=== PATIENT | female | born 1960 | race Caucasian/White ===

== ENCOUNTER 2018-05-25 11:36 | Emergency (ER) | payer OTHER ==
[2018-05-25 12:06] LABS: Absolute Lymphocytes (CBC) 5.3 K/uL (0.7-4.9); Absolute Monocytes 2.1 K/uL (0.1-1.3); Absolute Neutrophil 15.7 K/uL (1.8-8.0); Basophils % 0.8 % (0-1.3); Eosinophils % 1.1 % (0-4.4); Hematocrit 42.3 % (36.0-45.0); Lymphocytes % 22.5 % (15.3-44.8); MCH 29.2 pg (27.0-35.0); MCV 86.8 fL (80-100); MPV 8.1 fL (7.6-11.3); Monocytes % 9.1 % (3.3-12.3); RBC Red Blood Cell Count 4.88 M/uL (3.86-4.86)
[2018-05-25 12:08] LABS: Protime INR 0.89
[2018-05-25] MEDS ORDERED: NA CHLORIDE 0.9% 500 ML ONE (12:14)
[2018-05-25] MEDS ORDERED: METOPROLOL TARTRATE 5 MG/5 ML INJ IV ONE (12:14)
[2018-05-25 12:19] LABS: ALT/SGPT 22 U/L (12-78); AST/SGOT 18 U/L (15-37); Albumin 3.4 g/dL (3.4-5.0); Alkaline Phosphatase 72 U/L (45-117); BUN Blood Urea Nitrogen 31 mg/dL (7-18); Bicarbonate 32 mmol/L (21-32); Bilirubin Direct < 0.1 mg/dL (0-0.2); Bilirubin Total 0.3 mg/dL (0.2-1.0); Glucose Level 117 mg/dL (74-106); Magnesium 2.2 mg/dL (1.8-2.4); Protein, Total 8.2 g/dL (6.4-8.2); Sodium Level 137 mmol/L (136-145)
--- NOTE | 2018-05-25 12:24 | RAD REPORT ---
EXAM DESCRIPTION: RAD - Chest Single View - 05/25/2018 12:19 pm CLINICAL HISTORY: left facial numbness Chest pain. COMPARISON: No comparisons FINDINGS: Portable technique limits examination quality. The lungs are grossly clear. The heart is normal in size. No displaced fractures. IMPRESSION: No acute intrathoracic process suspected.
[2018-05-25] MEDS ORDERED: ALTEPLASE 0 ML IV ONE (12:29)
--- NOTE | 2018-05-25 12:49 | RAD REPORT ---
EXAM DESCRIPTION: CT - Ct Stroke Brain Wo Cont - 05/25/2018 12:40 pm CLINICAL HISTORY: DIZZINESS CVA COMPARISON: <Comparisons> TECHNIQUE: All CT scans are performed using dose optimization technique as appropriate and may inclu de automated exposure control or mA/KV adjustment according to patient size. FINDINGS: No intracranial hemorrhage, hydrocephalus or extra-axial fluid collection.Mild generalized brain atrophy is present with mild periventricular and deep white matter chronic microvascular ische charis changes.No areas of brain edema or evidence of midline shift. Mild fluid is seen in both maxillary antra posteriorly. Paranasal sinuses mastoids otherwise clear. T he calvarium is intact. IMPRESSION: No acute intracranial abnormality. If there is continued clinical concern for CVA, MR i maging of the brain would be recommended. Mild bilateral sinus fluid. The findings were discussed with Angela Hirsch in the ER on 05/25/2018 at 11:58 a.m. by telephone.
[2018-05-25 13:39] LABS: Blood Morphology Comment NOT SEEN (NOT SEEN); Platelet Estimate ADEQ
--- NOTE | 2018-05-25 14:00 | ER ---
Nurse's Notes [facility] Name: Georgiana Howard Age: 57 yrs Sex: Female : 1960 Arrival Date: 05/25/2018 Time: 11:37 Bed 4 Private MD: Hermes Kirk Diagnosis: left face paresthesia, Dysarthria, dysmetria of left arm - improved. 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 Transition of care: patient was not received from another setting of care. An acute neurological deficit is present. Pre-hospital glucose is not applicable to this patient. Onset of symptoms was May 25, 2018. Risk Assessment: Do you want to hurt yourself or someone else? Patient reports no desire to harm self or others. Initial Sepsis Screen: Does the patient meet any 2 criteria? HR > 90 bpm. Does the patient have a suspected source of infection? No. Patient's initial sepsis screen is negative. Care prior to arrival: None. 11:40 Method Of Arrival: Ambulatory ss 11:40 Acuity: KLAUS 2 ss Stroke Activation: Symptom onset < 3 hours Physician: Stroke Attending; Name: ; Notified At: ; Arrived At: Physician: Chief Stroke Resident; Name: ; Notified At: ; Arrived At: Physician: Stroke Resident; Name: ; Notified At: ; Arrived At: Physician: ED Attending; Name: ; Notified At: ; Arrived At: Physician: ED Resident; Name: ; Notified At: ; Arrived At: Historical: - Allergies: 11:57 Codeine; ss - Home Meds: 11:57 aspirin 325 mg Oral tab 1 tab once daily [Active]; ss - PMHx: 11:57 High Cholesterol; ss - PSHx: 11:57 Hysterectomy; Appendectomy; ss - Immunization history:: Adult Immunizations up to date. - Social history:: Smoking status: Patient/guardian denies using tobacco. - Ebola Screening: : Patient denies exposure to infectious person Patient denies travel to an Ebola-affected area in the 21 days before illness onset. Screenin:02 Abuse screen: Denies threats or abuse. Denies injuries from another. Nutritional ss screening: No deficits noted. Tuberculosis screening: No symptoms or risk factors identified. Never had TB. Fall Risk None identified. Assessment: 11:44 Reassessment: back from CT, Dr. Sanz at bedside to assess patient. ss 11:58 Reassessment: Dr. Skaggs on phone giving CT results to Angela Hernandez NP and relayed to ss Dr. Sanz. 12:00 The patient has not been NPO before screening. The patient is currently on the jl7 following diet: regular The patient is alert, and able to follow commands. The patient does not exhibit slurred or garbled speech. The patient is not exhibiting difficulty speaking. The patient does not exhibit difficulty understanding words. The patient is able to swallow own secretions with no drooling or need for suction. Patient tolerated one teaspoon of water. No drooling, immediate coughing, gurgling, or clearing of the throat was noted. The patient tolerated 90mL of water. No drooling, immediate coughing, gurgling, or clearing of the throat was noted. The patient passed the bedside swallow screening. Oral medications may be given as ordered. Contact Physician for further diet orders. Provider notified of bedside swallow screening results: Chapito Sanz MD. 12:00 General: Appears uncomfortable, Behavior is calm, cooperative, appropriate for age. jl7 Pain: Denies pain. 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 Gait is steady, Speech is normal, Facial symmetry appears normal, Pupils are PERRLA, Numbness in left arm and left leg. Cardiovascular: Heart tones S1 S2 present Patient's skin is warm and dry. Respiratory: Airway is patent Respiratory effort is even, unlabored, Respiratory pattern is regular, symmetrical, Breath sounds are clear bilaterally. GI: No signs and/or symptoms were reported involving the gastrointestinal system. : No signs and/or symptoms were reported regarding the genitourinary system. EENT: No signs and/or symptoms were reported regarding the EENT system. Derm: Skin is pink, warm \T\ dry. Musculoskeletal: No signs and/or symptoms reported regarding the musculoskeletal system. 12:10 Reassessment: Pt's speech is slurred, face appears to be drooping on left side. jl7 Provider notified and at bedside. 12:21 Reassessment: Called [facility] who reports at 1220 that they have no ICU beds. [facility] called and reports they will call back with further information. 12:23 Reassessment: Updated on Plan of care. ss 12:23 Reassessment: Decision now to go ahead and administer TPA after blood pressure is down ss within parameters. 12:23 Reassessment: Pt reports that her symptoms have improved greatly, but not 100%. ss 13:05 Reassessment: Report given to ALIZE Croft at [facility] in [place]. [facility] 13:10 Reassessment: [facility] at bedside to transport pt. jl7 Vital Signs: 11:50 BP 199 / 93; Pulse 127; Resp 19; Temp 98.5; Pulse Ox 98% on R/A; Weight 77.11 kg; ss Height 5 ft. 5 in. (165.10 cm); Pain 0/10; 12:07 BP 190 / 92; Pulse 109; Resp 16 S; Pulse Ox 98% on R/A; jl7 12:18 BP 172 / 98; Pulse 95; Resp 16; Pulse Ox 98% ; jl7 12:28 BP 190 / 102; Pulse 94; Resp 16; Pulse Ox 99% ; jl7 12:35 BP 185 / 92; Pulse 92; Resp 15; Pulse Ox 97% ; jl7 12:50 BP 175 / 88; Pulse 85; Resp 17; Pulse Ox 95% ; jl7 12:52 BP 175 / 88; Pulse 84; Resp 20 S; Pulse Ox 95% on R/A; Pain 0/10; jl7 13:15 BP 178 / 102; Pulse 91; Resp 14; Pulse Ox 98% ; Pain 0/10; jl7 11:50 Body Mass Index 28.29 (77.11 kg, 165.10 cm) ss NIH Stroke Scale Scores: 11:45 NIHSS Score: 3 jl7 12:00 NIHSS Score: 2 kdr ED Course: 11:37 Patient arrived in ED. as 11:37 Hermes Kirk MD is Private Physician. as 11:42 Chapito Sanz MD is Attending Physician. kdr 11:50 Arm band placed on right wrist. ss 11:53 CT Stroke Brain w/o Contrast In Process Unspecified. EDMS 11:56 Triage completed. ss 11:59 Inserted saline lock: 20 gauge in right antecubital area, using aseptic technique. ss ,using aseptic technique. insertion by ALIZE Trammell Blood collected. Patient maintains SpO2 saturation greater than 95% on room air. 12:02 Patient has correct armband on for positive identification. Bed in low position. Call ss light in reach. Side rails up X 1. traffic monitor specialist on. Pulse ox on. NIBP on. 12:07 Jp Alonso RN is Primary Nurse. jl7 12:13 X-ray completed. Portable x-ray completed in exam room. Patient tolerated procedure kw well. 12:19 Stroke CXR 1 View In Process Unspecified. EDMS Administered Medications: 12:10 Drug: Lopressor 5 mg Route: IVP; Site: right antecubital; jl7 12:15 Drug: NS 0.9% 500 ml Route: IV; Rate: bolus; Site: right antecubital; jl7 12:42 Not Given (Pt took 325 mg Aspirin today): Aspirin 325 mg PO once jl7 Point of Care Testing: Blood Glucose: 11:50 Blood Glucose: 108 mg/dL; Ranges: Outcome: 13:05 Transferred by ground EMS to [facility], Transfer form completed. jl7 X-rays sent w/ patient. 13:05 Condition: stable 13:05 Discharge instructions given to patient, family, Instructed on the need for transfer, Demonstrated understanding of instructions. 13:59 ER care complete, transfer ordered by . kdr 14:01 Patient left the ED. NIH Stroke Scale - NIH Stroke Score Date: 05/25/2018 Time: 11:45 Total Score = 3 1a. Level of Consciousness (LOC) - 0(Alert) 1b. Level of Consciousness (LOC) (Year \T\ Age) - 0(Both) 1c. LOC Commands (Open \T\ Closes Eyes/Shaper Hand) - 0(Both) 2. Best Gaze (Lateral Gaze Paresis) - 0(Normal) 3. Visual Field Loss - 0(No visual loss) 4. Facial Palsy - 0(Normal) 5a. Left Arm: Motor (10-second hold) - 1(Drift) 5b. Right Arm: Motor (10-second hold) - 0(No drift) 6a. Left Leg: Motor (5-second hold - always test supine) - 0(No drift) 6b. Right Leg: Motor (5-second hold - always test supine) - 0(No drift) 7. Limb Ataxia (finger/nose \T\ heel/phillip - test with eyes open) - 1(Present in one limb) 8. Sensory Loss (pinprick arms/legs/face) - 1(Mild to moderate loss) 9. Best Language: Aphasia (description/naming/reading) - 0(No aphasia) 10. Dysarthria (speech clarity - read or repeat words) - 0(Normal) 11. Extinction and Inattention (visual/tactile/auditory/spatial/personal) - 0(No abnormality) Initials: jl7 NIH Stroke Scale - NIH Stroke Score Date: 05/25/2018 Time: 12:00 Total Score = 2 1a. Level of Consciousness (LOC) - 0(Alert) 1b. Level of Consciousness (LOC) (Year \T\ Age) - 0(Both) 1c. LOC Commands (Open \T\ Closes Eyes/Shaper Hand) - 0(Both) 2. Best Gaze (Lateral Gaze Paresis) - 0(Normal) 3. Visual Field Loss - 0(No visual loss) 4. Facial Palsy - 0(Normal) 5a. Left Arm: Motor (10-second hold) - 1(Drift) 5b. Right Arm: Motor (10-second hold) - 0(No drift) 6a. Left Leg: Motor (5-second hold - always test supine) - 0(No drift) 6b. Right Leg: Motor (5-second hold - always test supine) - 0(No drift) 7. Limb Ataxia (finger/nose \T\ heel/phillip - test with eyes open) - 1(Present in one limb) 8. Sensory Loss (pinprick arms/legs/face) - 0(Normal) 9. Best Language: Aphasia (description/naming/reading) - 0(No aphasia) 10. Dysarthria (speech clarity - read or repeat words) - 0(Normal) 11. Extinction and Inattention (visual/tactile/auditory/spatial/personal) - 0(No abnormality) Initials: kdr Signatures: Dispatcher [employer] Chapito Kumari MD MD kdr Martinez, Amelia as Smirch, Shelby, RN RN Connie Russ Jahala RN RN jl7 Corrections: (The following items were deleted from the chart) 12:51 12:20 Reassessment: Pt's speech is slurred, face appears to be drooping on left jl7 side. Provider notified and at bedside. jl7
--- NOTE | 2018-05-25 14:00 | EDPHYS ---
Physician Documentation [facility] Name: Georgiana Howard Age: 57 yrs Sex: Female : 1960 Arrival Date: 05/25/2018 Time: 11:37 Bed 4 Private MD: Hermes Kirk ED Physician Chapito Sanz HPI: 05/25 12:05 This 57 yrs old Female presents to ER via Ambulatory with complaints of kdr Dizziness, Weakness - L Side. Historical: - Allergies: 11:57 Codeine; ss - Home Meds: 11:57 aspirin 325 mg Oral tab 1 tab once daily [Active]; ss - PMHx: 11:57 High Cholesterol; ss - PSHx: 11:57 Hysterectomy; Appendectomy; ss - Immunization history:: Adult Immunizations up to date. - Social history:: Smoking status: Patient/guardian denies using tobacco. - Ebola Screening: : Patient denies exposure to infectious person Patient denies travel to an Ebola-affected area in the 21 days before illness onset. Exam: 12:48 Constitutional: This is a well developed, well nourished patient who is awake, alert, kdr and in no acute distress. Head/Face: Normocephalic, atraumatic. Eyes: Pupils equal round and reactive to light, extra-ocular motions intact. Lids and lashes normal. Conjunctiva and sclera are non-icteric and not injected. Cornea within normal limits. Periorbital areas with no swelling, redness, or edema. Neck: Trachea midline, no thyromegaly or masses palpated, and no cervical lymphadenopathy. Supple, full range of motion without nuchal rigidity, or vertebral point tenderness. No Meningismus. Chest/axilla: Normal chest wall appearance and motion. Nontender with no deformity. No lesions are appreciated. Cardiovascular: Regular rate and rhythm with a normal S1 and S2. No gallops, murmurs, or rubs. Normal PMI, no JVD. No pulse deficits. Respiratory: Lungs have equal breath sounds bilaterally, clear to auscultation and percussion. No rales, rhonchi or wheezes noted. No increased work of breathing, no retractions or nasal flaring. Abdomen/GI: Soft, non-tender, with normal bowel sounds. No distension or tympany. No guarding or rebound. No evidence of tenderness throughout. Back: No spinal tenderness. No costovertebral tenderness. Full range of motion. Skin: Warm, dry with normal turgor. Normal color with no rashes, no lesions, and no evidence of cellulitis. MS/ Extremity: Pulses equal, no cyanosis. Neurovascular intact. Full, normal range of motion. Psych: Awake, alert, with orientation to person, place and time. Behavior, mood, and affect are within normal limits. 12:48 Neuro: Orientation: is normal, Mentation: appropriate for stated age, Memory: is normal, Cranial nerves: is grossly normal based on the patient's age, normal except Numbness to left face (CN-V)., Cerebellar function: dysmetria is noted on the left, heel to phillip testing is normal. Vital Signs: 11:50 BP 199 / 93; Pulse 127; Resp 19; Temp 98.5; Pulse Ox 98% on R/A; Weight 77.11 kg; ss Height 5 ft. 5 in. (165.10 cm); Pain 0/10; 12:07 BP 190 / 92; Pulse 109; Resp 16 S; Pulse Ox 98% on R/A; jl7 12:18 BP 172 / 98; Pulse 95; Resp 16; Pulse Ox 98% ; jl7 12:28 BP 190 / 102; Pulse 94; Resp 16; Pulse Ox 99% ; jl7 12:35 BP 185 / 92; Pulse 92; Resp 15; Pulse Ox 97% ; jl7 12:50 BP 175 / 88; Pulse 85; Resp 17; Pulse Ox 95% ; jl7 12:52 BP 175 / 88; Pulse 84; Resp 20 S; Pulse Ox 95% on R/A; Pain 0/10; jl7 13:15 BP 178 / 102; Pulse 91; Resp 14; Pulse Ox 98% ; Pain 0/10; jl7 11:50 Body Mass Index 28.29 (77.11 kg, 165.10 cm) NIH Stroke Scale Scores: 11:45 NIHSS Score: 3 jl7 12:00 NIHSS Score: 2 kdr MDM: 12:48 Data reviewed: vital signs, nurses notes, lab test result(s), radiologic studies. kdr Counseling: I had a detailed discussion with the patient and/or guardian regarding: the historical points, exam findings, and any diagnostic results supporting the discharge/admit diagnosis, lab results, radiology results, the need to transfer to another facility. Physician consultation: Thong Marquez MD. ED course: Initial stroke scale was 2 (left hand and left face sensation). after the patient returned from CT, her s/s became worse with left facial droop and dysarthria and dysmetria of the left upper extremity. D/w Dr. Marquez and Dr. Oconnor. Given worsening of s/s will initiate t-PA. However, with sudden resolution of all s/s will hold t-PA. The patient had worsening and then resolution of s/s within 50 minutes of initial presentation.. 13:59 Patient medically screened. [facility] 05/25 11:53 Order name: Hepatic Function; Complete Time: 12:23 [facility] 05/25 11:53 Order name: Magnesium; Complete Time: 12:23 [facility] 05/25 11:53 Order name: Troponin (emerg Dept Use Only); Complete Time: 12:23 [facility] 05/25 11:53 Order name: Basic Metabolic Panel; Complete Time: 12:23 [facility] 05/25 11:53 Order name: CBC with Diff [facility] 05/25 11:53 Order name: Protime (+inr); Complete Time: 12:23 [facility] 05/25 11:43 Order name: CT Stroke Brain w/o Contrast eb 05/25 11:53 Order name: Ptt, Activated; Complete Time: 12:23 [facility] 05/25 11:53 Order name: Stroke CXR 1 View kdr 05/25 13:19 Order name: Glucose, Ancillary Testing EDDC 05/25 13:39 Order name: Manual Differential [facility]DC 05/25 11:53 Order name: EKG; Complete Time: 11:53 [facility] 05/25 11:53 Order name: Accucheck [facility] 05/25 11:53 Order name: Cardiac monitoring [facility] 05/25 11:53 Order name: EKG - Nurse/Tech [facility] 05/25 11:53 Order name: IV Saline Lock [facility] 05/25 11:53 Order name: Labs collected and sent [facility] 05/25 11:53 Order name: NPO [facility] 05/25 11:53 Order name: O2 Per Protocol [facility] 05/25 11:53 Order name: O2 Sat Monitoring [facility] 05/25 11:53 Order name: Stroke Swallow Screen [facility] 05/25 11:53 Order name: Urine Dipstick-Ancillary (obtain specimen) kdr Administered Medications: 12:10 Drug: Lopressor 5 mg Route: IVP; Site: right antecubital; 7 12:15 Drug: NS 0.9% 500 ml Route: IV; Rate: bolus; Site: right antecubital; jl7 12:42 Not Given (Pt took 325 mg Aspirin today): Aspirin 325 mg PO once jl7 Point of Care Testing: Blood Glucose: 11:50 Blood Glucose: 108 mg/dL; ss Ranges: Critical Glucose Levels:Adult <50 mg/dl or >400 mg/dl <40 mg/dl or >180 mg/dl Disposition: 05/25/18 13:[address] [facility]. Diagnosis is left face paresthesia, Dysarthria, dysmetria of left arm - improved.. - Reason for transfer: Higher level of care. - Accepting physician is Dr. Squires. - Condition is Serious. - Problem is new. - Symptoms have improved. NIH Stroke Scale - NIH Stroke Score Date: 05/25/2018 Time: 11:45 Total Score = 3 1a. Level of Consciousness (LOC) - 0(Alert) 1b. Level of Consciousness (LOC) (Year \T\ Age) - 0(Both) 1c. LOC Commands (Open \T\ Closes Eyes/Cyber Instructor) - 0(Both) 2. Best Gaze (Lateral Gaze Paresis) - 0(Normal) 3. Visual Field Loss - 0(No visual loss) 4. Facial Palsy - 0(Normal) 5a. Left Arm: Motor (10-second hold) - 1(Drift) 5b. Right Arm: Motor (10-second hold) - 0(No drift) 6a. Left Leg: Motor (5-second hold - always test supine) - 0(No drift) 6b. Right Leg: Motor (5-second hold - always test supine) - 0(No drift) 7. Limb Ataxia (finger/nose \T\ heel/phillip - test with eyes open) - 1(Present in one limb) 8. Sensory Loss (pinprick arms/legs/face) - 1(Mild to moderate loss) 9. Best Language: Aphasia (description/naming/reading) - 0(No aphasia) 10. Dysarthria (speech clarity - read or repeat words) - 0(Normal) 11. Extinction and Inattention (visual/tactile/auditory/spatial/personal) - 0(No abnormality) Initials: jl7 NIH Stroke Scale - NIH Stroke Score Date: 05/25/2018 Time: 12:00 Total Score = 2 1a. Level of Consciousness (LOC) - 0(Alert) 1b. Level of Consciousness (LOC) (Year \T\ Age) - 0(Both) 1c. LOC Commands (Open \T\ Closes Eyes/Cyber Instructor) - 0(Both) 2. Best Gaze (Lateral Gaze Paresis) - 0(Normal) 3. Visual Field Loss - 0(No visual loss) 4. Facial Palsy - 0(Normal) 5a. Left Arm: Motor (10-second hold) - 1(Drift) 5b. Right Arm: Motor (10-second hold) - 0(No drift) 6a. Left Leg: Motor (5-second hold - always test supine) - 0(No drift) 6b. Right Leg: Motor (5-second hold - always test supine) - 0(No drift) 7. Limb Ataxia (finger/nose \T\ heel/phillip - test with eyes open) - 1(Present in one limb) 8. Sensory Loss (pinprick arms/legs/face) - 0(Normal) 9. Best Language: Aphasia (description/naming/reading) - 0(No aphasia) 10. Dysarthria (speech clarity - read or repeat words) - 0(Normal) 11. Extinction and Inattention (visual/tactile/auditory/spatial/personal) - 0(No abnormality) Initials: kdr Signatures: Dispatcher [employer] EDMS Chapito Sanz MD MD [facility] Mel Chery RN RN ss Jp Alonso RN RN jl7 Corrections: (The following items were deleted from the chart) 12:07 11:53 CT-STROKE BRAIN W/O CONTRAST+CT.RAD.BRZ ordered. EDDC EDMS 14:01 13:59 05/25/2018 13:[address] [facility]. ss Diagnosis is left face paresthesia, Dysarthria, dysmetria of left arm - improved.. Reason for transfer: Higher level of care. Accepting physician is Dr. Squires. Condition is Serious. Problem is new. Symptoms have improved. kdr
--- NOTE | 2018-05-26 09:34 | EKG ---
Test Date: 2018-05-25 Test Time: 11:50:57 Stopper Maker: NITHYA MEASUREMENT RESULTS: Intervals: Rate: 118 GA: 136 QRSD: 88 QT: 316 QTc: 442 Celeste: P: 68 GA: 136 QRS: 76 T: 58 INTERPRETIVE STATEMENTS: Sinus tachycardia Nonspecific ST abnormality Abnormal ECG No previous ECG available for comparison Electronically Signed On 05-26-18 09:33:35 CDT by Nuno Livingston
== END 2018-05-25 14:01 | disposition short-term general hospital (02) ==
LOC: ER 11:36
DX: R47.1 Dysarthria and anarthria (principal); R27.8 Other lack of coordination; E78.00 Pure hypercholesterolemia, unspecified; Z79.82 Long term (current) use of aspirin
CPT/HCPCS: 36415; 70450; 71045; 80048; 80076; 82962; 83735; 84484; 85025; 85610; 85730; 93005; 96374; 99285; J2997

== ENCOUNTER 2019-05-05 12:13 | Emergency (ER) | payer OTHER ==
--- OUTSIDE RECORDS SUMMARY | 2019-05-05 12:16 | XMS REPORT | Clinical Summary ---
:[address] [facility] [employer] [facility] Address [address] [place] [address] Care Team Providers Name Role Phone Unavailable Primary Care Provider Unavailable Allergies Active Allergy Reactions Severity Noted Date Comments Codeine Nausea Only 05/25/2018 Passed out when tried to get up Medications Medication Sig Dispensed Refills Start End Status Date Date estradiol (ESTRACE) 1 Take 1.5 mg by 0 Active MG tablet mouth daily. omega-3 acid ethyl Take 4 g by 0 Active esters (LOVAZA) 1 mouth daily 4 gram capsule capsules daily . linaclotide (LINZESS) Take 290 mcg by 0 Active 290 mcg Cap mouth daily. torsemide (DEMADEX) Take 20 mg by 0 Active 20 MG tablet mouth daily. Missing or 99 mg 2 (two) 0 Active Non-Formulary times daily Medication Potassium OTC? . cholecalciferol, Take 1 capsule 0 Active vitamin D3, 2,000 by mouth daily. unit Cap coenzyme Q10 200 mg Take 200 mg by 0 Active capsule mouth daily. amLODIPine (NORVASC) Take 10 mg by 0 Active 10 MG tablet mouth daily. omeprazole-sodium Take 1 capsule 0 Active bicarbonate (ZEGERID) by mouth 40-1.1 mg-gram per nightly. capsule aspirin 81 MG Take 1 tablet 30 tablet 1 06/05/2006/05/ Active chewable tablet (81 mg total) 2018 by mouth daily. atorvastatin Take 1 tablet 30 tablet 1 06/04/2006/04/ Active (LIPITOR) 80 MG (80 mg total) 2018 tablet by mouth nightly. clopidogrel (PLAVIX) Take 1 tablet 30 tablet 1 06/05/2006/05/ Active 75 mg tablet (75 mg total) 2018 by mouth daily. metoprolol Take 1 tablet 60 tablet 1 06/04/2006/04/ Active (TOPROL-XL) 25 MG 24 (25 mg total) 2018 hr tablet by mouth 2 (two) times daily. aspirin 325 MG tablet Take 325 mg by 0 06/04/ Discontinued mouth daily. 2018 methylPREDNISolone Take 4 mg by 0 06/04/ Discontinued (MEDROL) 4 MG tablet mouth 2 (two) 2018 times daily A tapering pack - she is on 5 day - one more to take today and then one to take tomorrow before breakfast - 2 pills left . bisacodyl (DULCOLAX) Take 2 tablets 30 tablet 0 06/04/20 5 mg EC tablet (10 mg total) 2017 by mouth daily as needed for Constipation for up to 30 days. bisacodyl (DULCOLAX) Place 1 12 suppository 0 06/04/20 10 mg suppository suppository (10 2017 mg total) rectally daily as needed for up to 10 days. clonazePAM (KLONOPIN) Take 1 tablet 60 tablet 0 06/04/20 0.5 MG tablet (0.5 mg total) 2017 by mouth 2 (two) times daily as needed (anxiety) for up to 30 days. Max Daily Amount: 1 mg Active Problems Problem Noted Date Received tissue plasminogen activator (t-PA) less than 24 hours prior to 05/26 arrival Essential hypertension 05/26/2018 Mixed hyperlipidemia 05/26/2018 TIA (transient ischemic attack) 05/25/2018 Acute ischemic stroke 05/25/2018 Encounters Date Type Specialty Care Team Description 05/25/2018 - Hospital Encounter General Internal Cricket Kessler Acute ischemic stroke (HCC); 06/04/2018 Gigi Medeiros MD Essential hypertension; Vito Aguilar Mixed hyperlipidemia; MD Triston Received tissue plasminogen activator (t-PA) less than 24 hours prior to arrival; Rosalva HTN (hypertension), malignant; Anthony Mathews Dysarthria; Hemispheric carotid artery syndrome; Kim Jung MD Adjustment disorder, unspecified type after 05/04/2018 Social History Tobacco Use Types Packs/Day Years Used Date Never Smoker Smokeless Tobacco: Never Used Alcohol Use Drinks/Week oz/Week Comments Yes 0 Glasses of wine 0.6 Occasional 0 Cans of beer 1 Shots of liquor Sex Assigned at Date Recorded Not on file Job Start Date Occupation Industry Not on file Not on file Not on file Travel History Travel Start Travel End No recent travel history available. Last Filed Vital Signs Vital Sign Reading Time Taken Blood Pressure 143/65 06/04/2018 3:13 PM CDT Pulse 65 06/04/2018 3:13 PM CDT Temperature 36.1 C (97 F) 06/04/2018 3:13 PM CDT Respiratory Rate 18 06/04/2018 3:13 PM CDT Oxygen Saturation 94% 06/04/2018 3:13 PM CDT Inhaled Oxygen Concentration - - Weight 78.6 kg (173 lb 4.5 oz) 05/25/2018 5:15 PM CDT Height 165.1 cm (5' 5") 05/25/2018 5:15 PM CDT Body Mass Index 28.84 05/25/2018 5:15 PM CDT Plan of Treatment Not on file Procedures Procedure Name Priority Date/Time Associated Comments Diagnosis RHYTHM STRIP - SCAN 06/06/2018 9:40 AM CDT CBC W/PLT COUNT & AUTO Routine 05/28/2018 5:53 Results for this DIFFERENTIAL AM CDT procedure are in the results section. MAGNESIUM Routine 05/28/2018 5:53 Results for this AM CDT procedure are in the results section. PHOSPHORUS Routine 05/28/2018 5:53 Results for this AM CDT procedure are in the results section. CBC W/PLT COUNT & AUTO Routine 05/28/2018 5:53 Results for this DIFFERENTIAL AM CDT procedure are in the results section. COMPREHENSIVE METABOLIC Routine 05/28/2018 5:53 Results for this PANEL AM CDT procedure are in the results section. ECHOCARDIOGRAM REPORT - 05/27/2018 5:20 SCAN PM CDT URINALYSIS WITH Routine 05/27/2018 2:43 Results for this MICROSCOPIC IF PM CDT procedure are in INDICATED the results section. LIMITED 2D EDUARD 05/27/2018 11:26 Results for this ECHOCARDIOGRAM AM CDT procedure are in the results section. PHOSPHORUS Routine 05/27/2018 10:26 Results for this AM CDT procedure are in the results section. MAGNESIUM Routine 05/27/2018 10:26 Results for this AM CDT procedure are in the results section. BASIC METABOLIC PANEL Routine 05/27/2018 10:26 Results for this (7) AM CDT procedure are in the results section. CBC W/PLT COUNT & AUTO Routine 05/27/2018 5:27 Results for this DIFFERENTIAL AM CDT procedure are in the results section. CBC W/PLT COUNT & AUTO Routine 05/27/2018 5:27 Results for this DIFFERENTIAL AM CDT procedure are in the results section. ECHOCARDIOGRAM REPORT - 05/26/2018 5:[address]/CTA BRAIN EDUARD 05/26/2018 4:50 Results for this PM CDT procedure are in the results section. CT/CTA CAROTID Routine 05/26/2018 4:49 Results for this PM CDT procedure are in the results section. CT BRAIN WITHOUT IV EDUARD 05/26/2018 4:48 Results for this CONTRAST PM CDT procedure are in the results section. CBC W/PLT COUNT & AUTO Routine 05/26/2018 5:09 Results for this DIFFERENTIAL AM CDT procedure are in the results section. TSH/FREE T4 IF Routine 05/26/2018 5:09 Results for this INDICATED AM CDT procedure are in the results section. HEMOGLOBIN A1C Routine 05/26/2018 5:09 Results for this AM CDT procedure are in the results section. HOMOCYSTEINE Routine 05/26/2018 5:09 Results for this AM CDT procedure are in the results section. CBC W/PLT COUNT & AUTO Routine 05/26/2018 5:09 Results for this DIFFERENTIAL AM CDT procedure are in the results section. LIPID PANEL Routine 05/26/2018 5:09 Results for this AM CDT procedure are in the results section. BASIC METABOLIC PANEL Routine 05/26/2018 5:09 Results for this (7) AM CDT procedure are in the results section. TROPONIN I Routine 05/26/2018 5:09 Results for this AM CDT procedure are in the results section. PROTHROMBIN TIME/INR Routine 05/25/2018 9:02 Results for this PM CDT procedure are in the results section. POCT-GLUCOSE METER Routine 05/25/2018 6:36 Results for this PM CDT procedure are in the results section. 2D ECHO W/ DOPPLER EDUARD 05/25/2018 6:27 Results for this (CW/PW/COLOR) PM CDT procedure are in the results section. RAPID DRUG SCREEN, Routine 05/25/2018 5:28 Results for this URINE PM CDT procedure are in the results section. CT BRAIN/STROKE TEST STAT 05/25/2018 5:05 Results for this DESIGN PM CDT procedure are in the results section. ECG 12-LEAD STAT 05/25/2018 4:31 Results for this PM CDT procedure are in the results section. CBC W/PLT COUNT & AUTO Routine 05/25/2018 3:26 Results for this DIFFERENTIAL PM CDT procedure are in the results section. TROPONIN I Routine 05/25/2018 3:26 Results for this PM CDT procedure are in the results section. CBC W/PLT COUNT & AUTO Routine 05/25/2018 3:26 Results for this DIFFERENTIAL PM CDT procedure are in the results section. BASIC METABOLIC PANEL Routine 05/25/2018 3:26 Results for this (7) PM CDT procedure are in the results section. after 05/04/2018 Results RHYTHM STRIP - SCAN (06/06/2018 9:40 AM CDT) Narrative Performed At CBC with platelet count + automated diff (05/28/2018 5:53 AM CDT)Only the most recent of4 resultswithin the time period is included. WBC 12.9 (H) 3.5 - 10.5 K/L [facility] RBC 4.66 3.93 - 5.22 M/L [facility] Hemoglobin 13.1 11.2 - 15.7 GM/DL [facility] Hematocrit 41.3 34.1 - 44.9 % [facility] MCV 88.6 79.4 - 94.8 fL [facility] MCH 28.1 25.6 - 32.2 pg [facility] MCHC 31.7 (L) 32.2 - 35.5 GM/DL [facility] RDW 13.6 11.7 - 14.4 % [facility] Platelets 309 150 - 450 K/CU MM [facility] MPV 9.6 9.4 - 12.3 fL [facility] nRBC 0 0 - 0 /100 WBC [facility] % Neutros 66 % [facility] % Lymphs 20 % [facility] % Monos 8 % [facility] % Eos 3 % [facility] % Baso 1 % [facility] # Neutros 8.58 (H) 1.56 - 6.13 K/L [facility] # Lymphs 2.64 1.18 - 3.74 K/L [facility] # Monos 1.03 (H) 0.24 - 0.36 K/L [facility] # Eos 0.41 (H) 0.04 - 0.36 K/L [facility] # Baso 0.09 (H) 0.01 - 0.08 K/L [facility] Immature Granulocytes-Relative 1 0 - 1 % [facility] Specimen Blood Performing Organization Address City/[facility]/Zipcode Phone Number [address] [address] CENTER Phosphorus (05/28/2018 5:53 AM CDT)Only the most recent of2 resultswithin the time period is included. Phosphorus 4.2 2.3 - 4.7 mg/dL [facility] Specimen Blood Performing Organization Address City/[facility] Cent[facility] Phone Number [address] [address] CENTER Magnesium (05/28/2018 5:53 AM CDT)Only the most recent of2 resultswithin the time period is included. Magnesium 2.2 1.6 - 2.6 mg/dL [facility] Specimen Blood Performing Organization Address City/[facility]/Zipcode Phone Number [address] [address] CENTER Comprehensive metabolic panel (05/28/2018 5:53 AM CDT) Protein, Total 6.4 6.0 - 8.3 gm/dL [facility] Albumin 3.4 (L) 3.5 - 5.0 g/dL [facility] Alkaline Phosphatase 54 40 - 150 U/L [facility] Total Bilirubin 0.3 0.2 - 1.2 mg/dL [facility] Sodium 138 136 - 145 meq/L [facility] Potassium 4.2 3.5 - 5.1 meq/L [facility] Chloride 108 (H) 98 - 107 meq/L [facility] CO2 20 (L) 22 - 29 meq/L [facility] BUN 17 7 - 21 mg/dL [facility] Creatinine 0.88 0.57 - 1.25 mg/dL [facility] Glucose 115 (H) 70 - 105 mg/dL [facility] Calcium 9.3 8.4 - 10.2 mg/dL [facility] AST 15 5 - 34 U/L [facility] ALT 12 6 - 55 U/L [facility] EGFR 66Comment: ESTIMATED GFR mL/min/1.73 sq m [facility] IS NOT ACCURATE [facility] CREATININE CLEARANCE IN PREDICTING GLOMERULAR FILTRATION RATE. ESTIMATED GFR IS NOT APPLICABLE FOR DIALYSIS PATIENTS. Specimen Blood Performing Organization Address City/State/Zipcode Phone Number [facility] [address] [place] [address] CENTER ECHOCARDIOGRAM REPORT - SCAN (05/27/2018 5:20 PM CDT) Narrative Performed At Urinalysis with Microscopic If Indicated (05/27/2018 2:43 PM CDT) Color, UA Yellow [facility] Clarity, UA Hazy [facility] Specific [place], UA 1.013 1.001 - 1.035 [facility] pH, UA 6.5 5.0 - 8.0 [facility] Protein, UA Negative Negative [facility] Glucose, UA Negative Negative [facility] Ketones, UA Negative Negative [facility] Bilirubin, UA Negative Negative [facility] Blood, UA Negative Negative [facility] Nitrite, UA Negative Negative [facility] Leukocytes, UA Negative Negative [facility] Urobilinogen, UA 0.2 0.2 - 1.0 mg/dL [facility] Specimen Source [facility] Specimen Urine Performing Organization Address City/State/Zipcode Phone Number [facility] [address] [place] [address] CENTER Limited 2D Echocardiogram (05/27/2018 11:26 AM CDT) Ejection Fraction [facility] Specimen Narrative Performed At Transthoracic Echocardiography Report (TTE) [facility] Demographics Patient NameBACKOR, FRITZ Date of Study05/27/2018 Gender Female Visit [id number] Race Unknown [id number] Number Date of 1960 Referring PhysicianKortney Gomez, ALICIA Kessler Age 57 year(s) 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 Clinical History NONE ON FILE HGB 13.4 HCT 40.6 % Contrast Medium: Bubble Study. Height: 65 inches Weight: 78.47 kg (173 lbs) BSA: 1.86 m^2 BMI: 28.79 kg/m^2 HR: 74 bpm BP: 140/65 mmHg Summary Limited study w/saline contrast to assess intracardiac shunt. IV saline contrast injection was negative for a PFO (patent foramen ovale) at rest and post Valsalva . Normal left ventricular chamber size. Normal wall thickness. Normal overall left ventricular systolic function. No apparent segmental wall motion abnormalities. Estimated LVEF by qualitative assessment is normal (>60%) . Unable to estimate peak systolic PA pressure; inadequate TR velocity signal. No evidence of pericardial effusion. Signature Findings Left Ventricle Normal left ventricular chamber size. Normal wall th ickness. Normal overall left ventricular systolic fu nction. No apparent segmental wall motion ab normalities. Estimated LVEF by qualitative as sessment is normal (>60%) . Left AtriumNormal size left atrium. Right VentricleNormal right ventricle structure and function. Right Atrium Normal right atrium. Atrial SeptumIV saline contrast injection was negative for a PFO (p atent foramen ovale) at rest and post Valsalva . Aortic Valve Normal AoV structure and function. Mitral Valve Normal MV structure and function. Tricuspid ValveUnable to estimate peak systolic PA pressure; in adequate TR velocity signal. Pulmonic Valve PV is not well visualized. AortaAortic root size (SInus of Valsalva diameter) is no rmal . PericardiumNo evidence of pericardial effusion. IVC/SVC/PA/PV/PleuralThe estimated RA pressure by IVC dynamics in determinate . Chambers/Structures Left Atrium LA Dimension: 3.65 cmLA Area: 18.01 cm^2 LA Volume: 53.44 ml LA Vol. 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 Clinical History NONE ON FILE HGB 13.4 HCT 40.6 % Contrast Medium: Bubble Study. Height: 65 inches Weight: 78.47 kg (173 lbs) BSA: 1.86 m^2 BMI: 28.79 kg/m^2 HR: 74 bpm BP: 140/65 mmHg Summary Limited study w/saline contrast to assess intracardiac shunt. IV saline contrast injection was negative for a PFO (patent foramen ovale) at rest and post Valsalva . Normal left ventricular chamber size. Normal wall thickness. Normal overall left ventricular systolic function. No apparent segmental wall motion abnormalities. Estimated LVEF by qualitative assessment is normal (>60%) . Unable to estimate peak systolic PA pressure; inadequate TR velocity signal. No evidence of pericardial effusion. Signature Findings Left Ventricle Normal left ventricular chamber size. Normal wall thickness. Normal overall left ventricular systolic function. No apparent segmental wall motion abnormalities. Estimated LVEF by qualitative assessment is normal (>60%) . Left Atrium Normal size left atrium. Right Ventricle Normal right ventricle structure and function. Right Atrium Normal right atrium. Atrial Septum IV saline contrast injection was negative for a PFO (patent foramen ovale) at rest and post Valsalva . Aortic Valve Normal AoV structure and function. Mitral Valve Normal MV structure and function. Tricuspid Valve Unable to estimate peak systolic PA pressure; inadequate TR velocity signal. Pulmonic Valve PV is not well visualized. Aorta Aortic root size (SInus of Valsalva diameter) is normal . Pericardium No evidence of pericardial effusion. IVC/SVC/PA/PV/Pleural The estimated RA pressure by IVC dynamics indeterminate . Chambers/Structures Left Atrium LA Dimension: 3.65 cm LA Area: 18.01 cm^2 LA Volume: 53.44 ml LA Vol. Index: 29 ml/m^2 Left Ventricle LVIDd: 3.71 cm LV Septum Diastolic: 0.95 cm LV PW Diastolic: 1.02 cm LVEDV Quintero's:92.45 ml LVEDVI: 50 ml/m^2 Aorta Ao Root S of Marylu.: 3.01 cm Performing Organization Address City/State/Zipcode Phone Number [facility] Basic Metabolic Panel (05/27/2018 10:26 AM CDT)Only the most recent of3 resultswithin the time period is included. Sodium 136 136 - 145 meq/L [facility] Potassium 4.0 3.5 - 5.1 meq/L [facility] Chloride 107 98 - 107 meq/L [facility] CO2 21 (L) 22 - 29 meq/L [facility] BUN 17 7 - 21 mg/dL [facility] Creatinine 0.92 0.57 - 1.25 mg/dL [facility] Glucose 121 (H) 70 - 105 mg/dL [facility] Calcium 9.2 8.4 - 10.2 mg/dL [facility] EGFR 63Comment: ESTIMATED GFR IS mL/min/1.73 sq m [facility] NOT ACCURATE [facility] CLEARANCE IN PREDICTING GLOMERULAR FILTRATION RATE. ESTIMATED GFR IS NOT APPLICABLE FOR DIALYSIS PATIENTS. Specimen Blood Performing Organization Address City/State/Zipcode Phone Number [facility] [address] [place] [address] CENTER ECHOCARDIOGRAM REPORT - SCAN (05/26/2018 5:20 PM CDT) Narrative Performed At CTA brain (05/26/2018 4:50 PM CDT) Specimen Narrative Performed At FINAL REPORT [employer] CTA head and neck with contrast INDICATION: Stroke post tPA TECHNIQUE: Axial intravenous contrast enhanced CTA images of the head and neck were obtained. Multiplanar and 3-D volume rendered reconstruction images were generated on a separate workstation for better delineation of the vascular anatomy. This exam was performed according to our departmental dose optimization program which includes automated exposure control, adjustment of the mA and/or kV according to patient size and/or use of iterative reconstruction technique. COMPARISON: CT head 05/25/2018 FINDINGS: CTA neck: There is conventional aortic arch anatomy. The proximal great vessels and common carotid arteries demonstrate no focal stenosis. There is right carotid bifurcation atherosclerosis with mild proximal cervical ICA stenosis of up to 20%. There is no measurable cervical ICA stenosis by NASCET criteria. The proximal external carotid arteries are patent. The left vertebral artery is larger than the right. Mild left vertebral artery V2 segment spondylotic stenosis is present. Otherwise no significant cervical vertebral artery stenoses are seen. CTA head: The right intradural vertebral artery primarily terminates in PICA with a hypoplastic distal V4 segment. There is moderate to severe proximal right intradural vertebral artery stenosis. There is carotid siphon and left intradural vertebral artery stenosis. The remaining proximal [place] vessels demonstrate no significant stenosis. No saccular aneurysm is seen. Other findings: There is bilateral maxillary sinusitis. Multilevel cervical spine degenerative changes are present with up to moderate canal stenosis. There is a right thyroid lobe 1.5 cm nodule for which ultrasound follow up is suggested. There are suspected breathing motion artifacts in the lungs. Nonspecific prominent jugular chain lymph nodes may be reactive but should be correlated clinically. IMPRESSION: 1. Right cervical carotid atherosclerosis with mild right proximal cervical ICA stenosis, up to 20%. No hemodynamically significant carotid stenosis seen by NASCET criteria. 2. Mild left vertebral artery V2 segment spondylotic stenosis. 3. Right intradural vertebral artery primarily terminating in PICA with moderate to severe proximal intradural segment stenosis. 4. Mild carotid siphon and left intradural vertebral artery atherosclerosis. 5. Right thyroid lobe 1.5 cm nodule. Advise follow up ultrasound. 6. Maxillary sinusitis and nonspecific prominent cervical lymph nodes. Signed: Rosalino Flores MD Report Verified Date/Time:05/26/2018 18:11:06 Reading Location: [facility] [id number] Neuro Reading Room Procedure Note Interface, External Ris In - 05/27/2018 10:18 PM CDT FINAL REPORT CTA head and neck with contrast INDICATION: Stroke post tPA TECHNIQUE: Axial intravenous contrast enhanced CTA images of the head and neck were obtained. Multiplanar and 3-D volume rendered reconstruction images were generated on a separate workstation for better delineation of the vascular anatomy. This exam was performed according to our departmental dose optimization program which includes automated exposure control, adjustment of the mA and/or kV according to patient size and/or use of iterative reconstruction technique. COMPARISON: CT head 05/25/2018 FINDINGS: CTA neck: There is conventional aortic arch anatomy. The proximal great vessels and common carotid arteries demonstrate no focal stenosis. There is right carotid bifurcation atherosclerosis with mild proximal cervical ICA stenosis of up to 20%. There is no measurable cervical ICA stenosis by NASCET criteria. The proximal external carotid arteries are patent. The left vertebral artery is larger than the right. Mild left vertebral artery V2 segment spondylotic stenosis is present. Otherwise no significant cervical vertebral artery stenoses are seen. CTA head: The right intradural vertebral artery primarily terminates in PICA with a hypoplastic distal V4 segment. There is moderate to severe proximal right intradural vertebral artery stenosis. There is carotid siphon and left intradural vertebral artery stenosis. The remaining proximal [place] vessels demonstrate no significant stenosis. No saccular aneurysm is seen. Other findings: There is bilateral maxillary sinusitis. Multilevel cervical spine degenerative changes are present with up to moderate canal stenosis. There is a right thyroid lobe 1.5 cm nodule for which ultrasound follow up is suggested. There are suspected breathing motion artifacts in the lungs. Nonspecific prominent jugular chain lymph nodes may be reactive but should be correlated clinically. IMPRESSION: 1. Right cervical carotid atherosclerosis with mild right proximal cervical ICA stenosis, up to 20%. No hemodynamically significant carotid stenosis seen by NASCET criteria. 2. Mild left vertebral artery V2 segment spondylotic stenosis. 3. Right intradural vertebral artery primarily terminating in PICA with moderate to severe proximal intradural segment stenosis. 4. Mild carotid siphon and left intradural vertebral artery atherosclerosis. 5. Right thyroid lobe 1.5 cm nodule. Advise follow up ultrasound. 6. Maxillary sinusitis and nonspecific prominent cervical lymph nodes. Signed: Rosalino Flores MD Report Verified Date/Time: 05/26/2018 18:11:06 Reading Location: [facility] C013V Neuro Reading Room Performing Organization Address City/State/Zipcode Phone Number [facility] CTA carotid (05/26/2018 4:49 PM CDT) Specimen Narrative Performed At FINAL REPORT [facility] CTA head and neck with contrast INDICATION: Stroke post tPA TECHNIQUE: Axial intravenous contrast enhanced CTA images of the head and neck were obtained. Multiplanar and 3-D volume rendered reconstruction images were generated on a separate workstation for better delineation of the vascular anatomy. This exam was performed according to our departmental dose optimization program which includes automated exposure control, adjustment of the mA and/or kV according to patient size and/or use of iterative reconstruction technique. COMPARISON: CT head 05/25/2018 FINDINGS: CTA neck: There is conventional aortic arch anatomy. The proximal great vessels and common carotid arteries demonstrate no focal stenosis. There is right carotid bifurcation atherosclerosis with mild proximal cervical ICA stenosis of up to 20%. There is no measurable cervical ICA stenosis by NASCET criteria. The proximal external carotid arteries are patent. The left vertebral artery is larger than the right. Mild left vertebral artery V2 segment spondylotic stenosis is present. Otherwise no significant cervical vertebral artery stenoses are seen. CTA head: The right intradural vertebral artery primarily terminates in PICA with a hypoplastic distal V4 segment. There is moderate to severe proximal right intradural vertebral artery stenosis. There is carotid siphon and left intradural vertebral artery stenosis. The remaining proximal [place] vessels demonstrate no significant stenosis. No saccular aneurysm is seen. Other findings: There is bilateral maxillary sinusitis. Multilevel cervical spine degenerative changes are present with up to moderate canal stenosis. There is a right thyroid lobe 1.5 cm nodule for which ultrasound follow up is suggested. There are suspected breathing motion artifacts in the lungs. Nonspecific prominent jugular chain lymph nodes may be reactive but should be correlated clinically. IMPRESSION: 1. Right cervical carotid atherosclerosis with mild right proximal cervical ICA stenosis, up to 20%. No hemodynamically significant carotid stenosis seen by NASCET criteria. 2. Mild left vertebral artery V2 segment spondylotic stenosis. 3. Right intradural vertebral artery primarily terminating in PICA with moderate to severe proximal intradural segment stenosis. 4. Mild carotid siphon and left intradural vertebral artery atherosclerosis. 5. Right thyroid lobe 1.5 cm nodule. Advise follow up ultrasound. 6. Maxillary sinusitis and nonspecific prominent cervical lymph nodes. Signed: Rosalino Flores MD Report Verified Date/Time:05/26/2018 18:11:06 Reading Location: [address] Neuro Reading Room Procedure Note Interface, External Ris In - 05/26/2018 6:13 PM CDT FINAL REPORT CTA head and neck with contrast INDICATION: Stroke post tPA TECHNIQUE: Axial intravenous contrast enhanced CTA images of the head and neck were obtained. Multiplanar and 3-D volume rendered reconstruction images were generated on a separate workstation for better delineation of the vascular anatomy. This exam was performed according to our departmental dose optimization program which includes automated exposure control, adjustment of the mA and/or kV according to patient size and/or use of iterative reconstruction technique. COMPARISON: CT head 05/25/2018 FINDINGS: CTA neck: There is conventional aortic arch anatomy. The proximal great vessels and common carotid arteries demonstrate no focal stenosis. There is right carotid bifurcation atherosclerosis with mild proximal cervical ICA stenosis of up to 20%. There is no measurable cervical ICA stenosis by NASCET criteria. The proximal external carotid arteries are patent. The left vertebral artery is larger than the right. Mild left vertebral artery V2 segment spondylotic stenosis is present. Otherwise no significant cervical vertebral artery stenoses are seen. CTA head: The right intradural vertebral artery primarily terminates in PICA with a hypoplastic distal V4 segment. There is moderate to severe proximal right intradural vertebral artery stenosis. There is carotid siphon and left intradural vertebral artery stenosis. The remaining proximal [place] vessels demonstrate no significant stenosis. No saccular aneurysm is seen. Other findings: There is bilateral maxillary sinusitis. Multilevel cervical spine degenerative changes are present with up to moderate canal stenosis. There is a right thyroid lobe 1.5 cm nodule for which ultrasound follow up is suggested. There are suspected breathing motion artifacts in the lungs. Nonspecific prominent jugular chain lymph nodes may be reactive but should be correlated clinically. IMPRESSION: 1. Right cervical carotid atherosclerosis with mild right proximal cervical ICA stenosis, up to 20%. No hemodynamically significant carotid stenosis seen by NASCET criteria. 2. Mild left vertebral artery V2 segment spondylotic stenosis. 3. Right intradural vertebral artery primarily terminating in PICA with moderate to severe proximal intradural segment stenosis. 4. Mild carotid siphon and left intradural vertebral artery atherosclerosis. 5. Right thyroid lobe 1.5 cm nodule. Advise follow up ultrasound. 6. Maxillary sinusitis and nonspecific prominent cervical lymph nodes. Signed: Rosalino Flores MD Report Verified Date/Time: 05/26/2018 18:11:06 Reading Location: [facility] C013V Neuro Reading Room Performing Organization Address City/State/Zipcode Phone Number [facility] CT brain without IV contrast (05/26/2018 4:48 PM CDT) Specimen Narrative Performed At FINAL REPORT [facility] CT head without contrast INDICATION: Post tPA TECHNIQUE: Axial noncontrast CT images through the head were obtained. This exam was performed according to our departmental dose optimization program which includes automated exposure control, adjustment of the mA and/or kV according to patient size and/or use of iterative reconstruction technique. COMPARISON: CT head 05/25/2018 FINDINGS: There is no acute intracranial hemorrhage or mass effect. Microvascular ischemic changes are grossly similar to the prior study. No acute territorial infarct is evident on CT. Please note that CT is insensitive for early or small infarcts. Generalized volume loss and vascular calcifications are noted. There is no hydrocephalus or midline shift. There is maxillary sinus mucosal disease with fluid secretions. The mastoid air cells and orbits are unremarkable. The calvarium is intact. IMPRESSION: No intracranial hemorrhage post tPA administration. No specific CT findings of acute territorial infarct. Microvascular ischemic changes, grossly similar to 05/25/2018. Advise MRI to better assess for acute ischemia if there is no contraindication. Maxillary sinusitis. Signed: Rosalino Flores MD Report Verified Date/Time:05/26/2018 17:02:31 Reading Location: [facility] C013 Neuro Reading Room Procedure Note Interface, External Ris In - 05/26/2018 5:58 PM CDT FINAL REPORT CT head without contrast INDICATION: Post tPA TECHNIQUE: Axial noncontrast CT images through the head were obtained. This exam was performed according to our departmental dose optimization program which includes automated exposure control, adjustment of the mA and/or kV according to patient size and/or use of iterative reconstruction technique. COMPARISON: CT head 05/25/2018 FINDINGS: There is no acute intracranial hemorrhage or mass effect. Microvascular ischemic changes are grossly similar to the prior study. No acute territorial infarct is evident on CT. Please note that CT is insensitive for early or small infarcts. Generalized volume loss and vascular calcifications are noted. There is no hydrocephalus or midline shift. There is maxillary sinus mucosal disease with fluid secretions. The mastoid air cells and orbits are unremarkable. The calvarium is intact. IMPRESSION: No intracranial hemorrhage post tPA administration. No specific CT findings of acute territorial infarct. Microvascular ischemic changes, grossly similar to 05/25/2018. Advise MRI to better assess for acute ischemia if there is no contraindication. Maxillary sinusitis. Signed: Rosalino Flores MD Report Verified Date/Time: 05/26/2018 17:02:31 Reading Location: [facility] C013 Neuro Reading Room Performing Organization Address City/State/Zipcode Phone Number [facility] TSH/Free T4 If Indicated (05/26/2018 5:09 AM CDT) TSH 2.33 0.35 - 4.94 uIU/mL [facility] Specimen Blood Narrative Performed At Fasting [facility] Performing Organization Address City/[facility]/Zipcode Phone Number [address] [phone] CENTER Troponin I (05/26/2018 5:09 AM CDT)Only the most recent of2 resultswithin the time period is included. Troponin I 0.02 0.00 - 0.03 ng/mL [facility] Specimen Blood Narrative Performed At [facility] Troponin I (TnI) levels must be interpreted in the context of the presenting symptoms and the clinical findings. Elevated TnI levels indicate myocardial damage, but are not specific for ischemic heart disease. Elevated TnI levels are seen in patients with other cardiac conditions (including myocarditis and congestive heart failure), and slight TnI elevations occur in patients with other conditions, including sepsis, renal failure, acidosis, acute neurological disease, and persistent tachyarrhythmia. Fasting Performing Organization Address [facility]/Zipcode Phone Number [address] [phone] [place] Homocysteine - Fasting (05/26/2018 5:09 AM CDT) Homocysteine 6.2 5.1 - 15.4 umol/L [facility] Specimen Blood Narrative Performed At Fasting [facility] Performing Organization Address City/[facility]/Zipcode Phone Number [address] [phone] CENTER Hemoglobin A1c (05/26/2018 5:09 AM CDT) Hemoglobin A1C 5.8 4.3 - 6.1 % [facility] Specimen Blood Performing Organization Address City/[facility]/Zipcode Phone Number [address] [address] CENTER Fasting lipid panel (05/26/2018 5:09 AM CDT) Triglycerides 296 mg/dL [facility] Cholesterol 216 mg/dL [facility] HDL 47 mg/dL [facility] LDL Calculated 110 mg/dL [facility] Specimen Blood Narrative Performed At [facility] Triglyceride Reference Range: Low Risk <150 [id number] High Risk 200-499 Very High Risk>=500 Cholesterol Reference Range: Low Risk <200 Gpcemewjac100-890 High Risk>240 HDL Cholesterol Reference Range: Low Risk >=60 High Risk <40 LDL Cholesterol Reference Range: Optimal<100 Near Kkzcsui551-189 Mbuqdgdnut770-442 Sbgu524-697 Very High >=190 Fasting Performing Organization Address City/State/Zipcode Phone Number [address] [address] [phone] CENTER Prothrombin time/INR (05/25/2018 9:02 PM CDT) Protime 15.2 (H) 11.7 - 14.7 seconds [facility] INR 1.2 <=5.9 [facility] Specimen Blood Narrative Performed At [facility] RECOMMENDED COUMADIN/WARFARIN INR THERAPY RANGES STANDARD DOSE: 2.0 - 3.0 Includes: PROPHYLAXIS for venous thrombosis, systemic embolization; TREATMENT for venous thrombosis and/or pulmonary embolus. HIGH RISK: Target INR is 2.5-3.5 for patients with mechanical heart valves. Performing Organization Address City/[facility] Phone Number [address] [address] CENTER POC-Glucose meter (05/25/2018 6:36 PM CDT) POC-Glucose Meter 105Comment: TESTED AT 70 - 110 mg/dL [facility] [address] [place] [address] [place] [id number] Specimen Blood Performing Organization Address City/[facility]/Zipcode Phone Number [address] [address] CENTER 2D Echo W/Doppler(CW/PW/Color) (05/25/2018 6:27 PM CDT) Ejection Fraction [facility] Specimen Narrative Performed At Transthoracic Echocardiography Report (TTE) [facility] Demographics Patient Name RFITZ RODRIGUEZ Date of Study 05/25/2018 [id number] GenderFemale Visit Number [id number] Bello [id number] joseluis Number [id number] Number Date of Birth1960 Referring Physician Chava Ramirez Age57 year(s) Draw Machine Operator Katharina Lerner [facility] Reinaldo Coleman,Andres Head MD [facility] Physician Procedure Type of Study TTE procedure:2DECHO W DOPPLER(CW/PW/COLOR) (EDUARD) Indications:Acute Chest Pain/ Suspected CAD. Clinical History HGB 13.4 HCT 39.9 % Contrast Medium: Definity. Height: 65 inches Weight: 77.11 kg (170 lbs) BSA: 1.85 m^2 BMI: 28.29 kg/m^2 HR: 104 bpm BP: 216/99 mmHg Summary LV endocardium is adequately visualized with IV ultrasound enhancing agent. The left ventricle is chamber size (by vol index) is normal (female - LVED vol - 29-61ml/m2). Normal LV wall thickness. All of the LV segments are hyperkinetic . Global LV systolic function hyperdynamic . Estimated LVEF by qualitative assessment is increased (>70%) . Grade 1 diastolic dysfunction (impaired relaxation and low-normal LA pressure). The right ventricular chamber size and systolic function are within normal limits. Unable to estimate peak systolic PA pressure; inadequate TR velocity signal. No pericardial effusion is visualized. Previous Study No prior exam available for comparison. Signature Findings Technical Quality: Technically adequate exam. Rhythm/BPRegular sinus rhythm during the exam. Left Ventricle LV endocardium is adequately visualized with IV ul trasound enhancing agent. The left ventricle is ch ash size (by vol index) is normal (female - LV ED vol - 29-61ml/m2). Normal LV wall thickness. Al l of the LV segments are hyperkinetic . Global LV sy stolic function hyperdynamic . Estimated LVEF by qu alitative assessment is increased (>70%) . Grade 1 diastolic dysfunction (impaired relaxation and lo w-normal LA pressure). Left AtriumLA size is normal (16-34 ml/m2) . Right VentricleThe right ventricular chamber size and systolic fu nction are within normal limits. Right Atrium RA cavity size is normal . Aortic Valve Mild AoV cusp thickening. Ao V cusp mobility is normal . Mitral Valve Mild mitral annular calcification. Mi ld MV leaflet thickening. Tricuspid ValveTV structure is normal. A trace of tricuspid regurgitation. Un able to estimate peak systolic PA pressure; in adequate TR velocity signal. Pulmonic Valve Normal PV structure and function by limited views an d Doppler. AortaAortic root size (SInus of Valsalva diameter) is no rmal . PericardiumNo pericardial effusion is visualized. IVC/SVC/PA/PV/PleuralThe estimated RA pressure by IVC dynamics 5-10mmHg . Th e inferior vena cava size is normal . Th e inferior vena cava is adequately visualized. Chambers/Structures Left Atrium LA Volume: 47.65 ml LA Area: 16.74 cm^2 LA Vol. Index: 26 ml/m^2 Left Ventricle LVIDd: 4.08 cm LV Septum Diastolic: 1.03 cm LV PW Diastolic: 0.87 cm LVEDV Quintero's:101.58 ml LVEDVI: 55 ml/m^2 LVOT Diameter: 1.83 cm Aorta Ao Root S of Marylu.: 3.06 cm Doppler/Quantitative Measurements Mitral Valve MV Peak E-Wave: 0.99 m/s MV Peak A-Wave: 1.05 m/s E/A Ratio: 0.95 Peak Gradient: 3.95 mmHg Deceleration Time: 163.1 msec MV Deo. Peak: Aortic Valve Peak Velocity: 0.75 m/sMean Velocity: 0.49 m/s Peak Gradient: 2.26 mmHg Mean Gradient: 2.21 mmHg AV Area (continuity): 4.76 cm^2 AV VTI: 13.58 cm AV DVI: 1.81 LVOT Peak Velocity: 1.21 m/s Peak Gradient: 5.82 mmHg Mean Velocity: 0.77 m/s Mean Gradient: 2.89 mmHg LVOT Diameter: 1.83 cmLVOT VTI: 24.57 cm LVOT Area: 2.63 cm^2LVOT SV:64.59 ml LVOT CO: 6.72 l/min LVOT CI: 3.63 l/min/m^2 Procedure Note Interface, External Ris In - 05/26/2018 5:58 PM CDT Transthoracic Echocardiography Report (TTE) Demographics Patient Name FRITZ RODRIGUEZ Date of Study 05/25/2018 Gender Female Visit Number [id number] Race Unknown Room Number [id number] Number Date of 1960 Referring Physician Chava Ramirez Age 57 year(s) Draw Machine Operator Katharina Lerner [facility] Pre K Special Education Teacher Ghazala Coleman, Interpreting Mohan Head MD RDCS Physician Procedure Type of Study TTE procedure:2DECHO W DOPPLER(CW/PW/COLOR) (EDUARD) Indications:Acute Chest Pain/ Suspected CAD. Clinical History HGB 13.4 HCT 39.9 % Contrast Medium: Definity. Height: 65 inches Weight: 77.11 kg (170 lbs) BSA: 1.85 m^2 BMI: 28.29 kg/m^2 HR: 104 bpm BP: 216/99 mmHg Summary LV endocardium is adequately visualized with IV ultrasound enhancing agent. The left ventricle is chamber size (by vol index) is normal (female - LVED vol - 29-61ml/m2). Normal LV wall thickness. All of the LV segments are hyperkinetic . Global LV systolic function hyperdynamic . Estimated LVEF by qualitative assessment is increased (>70%) . Grade 1 diastolic dysfunction (impaired relaxation and low-normal LA pressure). The right ventricular chamber size and systolic function are within normal limits. Unable to estimate peak systolic PA pressure; inadequate TR velocity signal. No pericardial effusion is visualized. Previous Study No prior exam available for comparison. Signature Findings Technical Quality: Technically adequate exam. Rhythm/BP Regular sinus rhythm during the exam. Left Ventricle LV endocardium is adequately visualized with IV ultrasound enhancing agent. The left ventricle is chamber size (by vol index) is normal (female - LVED vol - 29-61ml/m2). Normal LV wall thickness. All of the LV segments are hyperkinetic . Global LV systolic function hyperdynamic . Estimated LVEF by qualitative assessment is increased (>70%) . Grade 1 diastolic dysfunction (impaired relaxation and low-normal LA pressure). Left Atrium LA size is normal (16-34 ml/m2) . Right Ventricle The right ventricular chamber size and systolic function are within normal limits. Right Atrium RA cavity size is normal . Aortic Valve Mild AoV cusp thickening. AoV cusp mobility is normal . Mitral Valve Mild mitral annular calcification. Mild MV leaflet thickening. Tricuspid Valve TV structure is normal. A trace of tricuspid regurgitation. Unable to estimate peak systolic PA pressure; inadequate TR velocity signal. Pulmonic Valve Normal PV structure and function by limited views and Doppler. Aorta Aortic root size (SInus of Valsalva diameter) is normal . Pericardium No pericardial effusion is visualized. IVC/SVC/PA/PV/Pleural The estimated RA pressure by IVC dynamics 5-10mmHg . The inferior vena cava size is normal . The inferior vena cava is adequately visualized. Chambers/Structures Left Atrium LA Volume: 47.65 ml LA Area: 16.74 cm^2 LA Vol. Index: 26 ml/m^2 Left Ventricle LVIDd: 4.08 cm LV Septum Diastolic: 1.03 cm LV PW Diastolic: 0.87 cm LVEDV Quintero's:101.58 ml LVEDVI: 55 ml/m^2 LVOT Diameter: 1.83 cm Aorta Ao Root S of Marylu.: 3.06 cm Doppler/Quantitative Measurements Mitral Valve MV Peak E-Wave: 0.99 m/s MV Peak A-Wave: 1.05 m/s E/A Ratio: 0.95 Peak Gradient: 3.95 mmHg Deceleration Time: 163.1 msec MV Deo. Peak: Aortic Valve Peak Velocity: 0.75 m/s Mean Velocity: 0.49 m/s Peak Gradient: 2.26 mmHg Mean Gradient: 2.21 mmHg AV Area (continuity): 4.76 cm^2 AV VTI: 13.58 cm AV DVI: 1.81 LVOT Peak Velocity: 1.21 m/s Peak Gradient: 5.82 mmHg Mean Velocity: 0.77 m/s Mean Gradient: 2.89 mmHg LVOT Diameter: 1.83 cm LVOT VTI: 24.57 cm LVOT Area: 2.63 cm^2 LVOT SV:64.59 ml LVOT CO: 6.72 l/min LVOT CI: 3.63 l/min/m^2 Performing Organization Address City/State/Zipcode Phone Number [facility] Rapid drug screen, urine (05/25/2018 5:28 PM CDT) Barbiturate Screen Negative Negative [facility] Benzodiazepine Screen Negative Negative [facility] Cocaine (Metab.) Screen Negative Negative [facility] Methadone Screen Negative Negative [facility] Opiate Screen Negative Negative [facility] Cannabinoid Screen Negative Negative [facility] Amph/Methamph Screen Negative Negative [facility] Phencyclidine Screen Negative Negative [facility] Oxycodone Screen Negative Negative [facility] Specimen Urine Narrative Performed At [facility] DRUGCUTOFF CONC. Cocaine 300 ng/mL Dlzjxmjeuhc90 ng/mL Jkgtdurhejfshj537 ng/mL Barbiturate 200 ng/mL Iltozncfkcdac63 ng/mL Qexblf799 ng/mL Methadone 300 ng/mL Amphetamine/ 1000 ng/mL Methamphetamine Oxycodone 300 ng/mL This assay provides an unconfirmed qualitative test result for the clinical management of patients in emergency situations. Chain of custody not maintained. Some ylyi-gic-ukdmubp medications, as well as adulterants, may cause inaccurate results. Clinical correlation should be applied. A more comprehensive drug screen or confirmation of a detected drug may be performed upon request. Performing Organization Address City/State/Zipcode Phone Number [facility] [address] [place] [address] brain/stroke test design (05/25/2018 5:05 PM CDT) Specimen Narrative Performed At FINAL REPORT [facility] CT, BRAIN/STROKE PROTOCOL CLINICAL INDICATION:Stroke COMPARISON: None TECHNIQUE:Noncontrast axial CT imaging of the brain and skull. DOSE REDUCTION: Dose modulation, iterative reconstruction, and/or weight-based adjustment of the mA/kV was utilized to reduce the radiation dose to as low as reasonably achievable. FINDINGS: Cerebral parenchyma: Minimal volume loss. Chronic white matter disease bilaterally without rodríguez-white disruption. No parenchymal hemorrhage Midline structures: Normally positioned. Cerebellum and brainstem: Normal. Ventricles: Normal volume. Extra-axial spaces: Unremarkable. Calvarium and skull base: Intact. Paranasal sinuses and mastoid air cells: Visible chambers are clear. Orbital contents: Included portions unremarkable. Additional findings: None. IMPRESSION: Chronic involutional changes without acute intracranial abnormality. No intracranial hemorrhage. If there is persistent clinical concern for intracranial pathology, MR examination is recommended for further characterization. Findings discussed with data warehouse developer at the time of dictation. Signed: JR Roach Robert MD Report Verified Date/Time:05/25/2018 17:10:02 Reading Location: [address] Reading Room Procedure Note Interface, External Ris In - 05/25/2018 5:[address] PM CD[address] FINAL REPORT CT, BRAIN/STROKE PROTOCOL CLINICAL INDICATION: Stroke COMPARISON: None TECHNIQUE: Noncontrast axial CT imaging of the brain and skull. DOSE REDUCTION: Dose modulation, iterative reconstruction, and/or weight-based adjustment of the mA/kV was utilized to reduce the radiation dose to as low as reasonably achievable. FINDINGS: Cerebral parenchyma: Minimal volume loss. Chronic white matter disease bilaterally without rodríguez-white disruption. No parenchymal hemorrhage Midline structures: Normally positioned. Cerebellum and brainstem: Normal. Ventricles: Normal volume. Extra-axial spaces: Unremarkable. Calvarium and skull base: Intact. Paranasal sinuses and mastoid air cells: Visible chambers are clear. Orbital contents: Included portions unremarkable. Additional findings: None. IMPRESSION: Chronic involutional changes without acute intracranial abnormality. No intracranial hemorrhage. If there is persistent clinical concern for intracranial pathology, MR examination is recommended for further characterization. Findings discussed with data warehouse developer at the time of dictation. Signed: JR Roach Robert MD Report Verified Date/Time: 05/25/2018 17:10:02 Reading Location: [address] Reading Room Performing Organization Address City/State/[facility] Phone Number [facility] RIS ECG 12 lead (05/25/2018 4:31 PM CDT) Specimen Narrative Performed At Ventricular Rate 117 BPM [facility]USE Atrial Rate 117 BPM P-R Interval 174 ms QRS Duration 92 ms Q-T Interval 330 ms QTC Calculation(Bazett) 460 ms P Edd[place] 72 degrees R Eddington 31 degrees T Eddington 33 degrees Sinus tachycardia Otherwise normal ECG No previous ECGs available Confirmed by Marek PAVON MICHAEL ([id number]) on 05/27/2018 6:57:10 AM Procedure Note Interface, External Ris In - 05/27/2018 6:57 AM CDT Ventricular Rate 117 BPM Atrial Rate 117 BPM P-R Interval 174 ms QRS Duration 92 ms Q-T Interval 330 ms QTC Calculation(Bazett) 460 ms P Eddington 72 degrees R Eddington 31 degrees T Eddington 33 degrees Sinus tachycardia Otherwise normal ECG No previous ECGs available Confirmed by Marek PAVON MICHAEL ([id number]) on 05/27/2018 6:57:10 AM Performing Organization Address City/State[facility] Phone Number GE MUSE after 05/04/2018 Insurance Payer Benefit Plan / Group Subscriber ID Type Phone Address [employer]ET[employer] - MGD CARE AETNA HMO POS QPOS xxxxxxxxx HMO/POS Advance Directives For more information, please contact:[facility] [place], [place] [phone] Code Status Date Activated Date Inactivated Comments Full Code 05/25/2018 2:41 PM 06/04/2018 8:59 PM This code status was determined by: Patient
--- OUTSIDE RECORDS SUMMARY | 2019-05-05 12:20 | XMS REPORT | Summary of Care ---
:1960 Author Organization [facility] Address [address] [place] [phone] Encounter HQ Brian(FIN) [id number] Date(s): 09/10/18 - 09/10/[address] [address] [phone] Encounter Diagnosis Impingement syndrome of left shoulder (Final) - 09/15/18 Pain in left shoulder (Final) - Other sequelae of cerebral infarction (Final) - Discharge Disposition: Home or Self Care Attending Physician: Farrukh Chanel MD Referring Physician: Farrukh Chanel MD Vital Signs Most recent to oldest [Reference Range]: 1 Height 167.64 cm (09/10/18 3:36 PM) Blood Pressure [90-140/60-90 mmHg] 112/63 mmHg (09/10/18 3:36 PM) Respiratory Rate [14-20 BRMIN] 16 BRMIN (09/10/18 3:36 PM) Peripheral Pulse Rate [60-100 bpm] 63 bpm (09/10/18 3:36 PM) Weight 70.455 kg (09/10/18 3:36 PM) Body Mass Index 25.07 m2 (09/10/18 3:36 PM) Problem List Condition Effective Dates Status Health Status Informant Cerebrovascular accident Active (CVA)(Confirmed) Stroke(Confirmed) Active Dysarthria(Confirmed) Active History of TIAs(Confirmed) Active Hyperlipidemia(Confirmed) Active Hypertension(Confirmed) Active HTN (hypertension)(Confirmed) Active IBS (irritable bowel Active syndrome)(Confirmed) Allergies, Adverse Reactions, Alerts Substance Reaction Severity Status codeine Active Medications Kenalog-40 40 mg, Route: intra-ARTICULAR, ONCE, Dosing Weight 70.455, kg, Start date: 09/11 15:28:00 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, Stop date: 09/11/18 15:28:00 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 Start Date: 09/11/18 Stop Date: 09/11/18 Status: Completedlidocaine 1% preservative-free injectable solution 20 mL, Route: NERVE BLOCK, Dosing Weight 70.455, kg, ONCALL, Start date: 16:00:00 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, Duration: 30 day, Stop date: 10/11/18 15:59:00 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 Start Date: 09/11/18 Stop Date: 09/11/18 Status: Completed Results No data available for this section Immunizations Given and Recorded Vaccine Date Status Refusal Reason influenza virus vaccine, inactivated 08/28/18 Given Procedures Procedure Date Related Diagnosis Body Site Status Appendectomy Completed Social History Social History Type Response Smoking Status Never smoker; Ready to change: No; Concerns about tobacco use in household: No; Exposure to Tobacco Smoke None; Cigarette Smoking Last 365 Days No; Reg Smoking Cessation Counseling No; Started at age: 0.0; Stopped at age: 1; entered on: 01/27/19 Assessment and Plan No data available for this section
--- OUTSIDE RECORDS SUMMARY | 2019-05-05 12:20 | XMS REPORT | Summary of Care ---
:1960 Author Organization [facility] Address [address] [place] [phone] Encounter HQ Brian(FIN) [id number] Date(s): 10/10/18 - 10/10/[address] [address] [phone] Encounter Diagnosis Other sequelae of cerebral infarction (Final) - 10/16/18 Hemiplegia and hemiparesis following cerebral infarction affecting left non- dominant side (Final) - Other muscle spasm (Final) - Discharge Disposition: Home or Self Care Attending Physician: Bessy Del Rio MD Referring Physician: Bessy Del Rio MD Vital Signs Most recent to oldest [Reference Range]: 1 Height 167.64 cm (10/10/18 9:50 AM) Blood Pressure [90-140/60-90 mmHg] 113/67 mmHg (10/10/18 9:50 AM) Respiratory Rate [14-20 BRMIN] 18 BRMIN (10/10/18 9:50 AM) Peripheral Pulse Rate [60-100 bpm] 69 bpm (10/10/18 9:50 AM) Weight 70.455 kg (10/10/18 9:50 AM) Body Mass Index 25.07 m2 (10/10/18 9:50 AM) Problem List Condition Effective Dates Status Health Status Informant Cerebrovascular accident Active (CVA)(Confirmed) Stroke(Confirmed) Active Dysarthria(Confirmed) Active History of TIAs(Confirmed) Active Hyperlipidemia(Confirmed) Active Hypertension(Confirmed) Active HTN (hypertension)(Confirmed) Active IBS (irritable bowel Active syndrome)(Confirmed) Left spastic hemiparesis(Confirmed) Active Spasm of muscle(Confirmed) Active Allergies, Adverse Reactions, Alerts Substance Reaction Severity Status codeine Active Medications ONAbotulinumtoxinA 600 unit, Route: IM, ONCALL, Dosing Weight 70.455, kg, Start date: 10/10/18 11: 00:00 DIVISION ENGINEER, Duration: 30 day, Stop date: 11/09/18 10:59:00 DIVISION ENGINEER Start Date: 10/10/18 Stop Date: 10/10/18 Status: Completed Results No data available for this section Immunizations Given and Recorded Vaccine Date Status Refusal Reason influenza virus vaccine, inactivated 08/28/18 Given Procedures Procedure Date Related Diagnosis Body Site Status Chemodenervation of one extremity; 5 10/10/18 Completed or more muscles Chemodenervation of one extremity; 10/10/18 Completed each additional extremity, 5 or more muscles (List separately in addition to code for primary procedure) Appendectomy Completed Social History Social History Type Response Smoking Status Never smoker; Ready to change: No; Concerns about tobacco use in household: No; Exposure to Tobacco Smoke None; Cigarette Smoking Last 365 Days No; Reg Smoking Cessation Counseling No; Started at age: 0.0; Stopped at age: 1; entered on: 04/02/19 Assessment and Plan No data available for this section
--- OUTSIDE RECORDS SUMMARY | 2019-05-05 12:20 | XMS REPORT | Summary of Care ---
:1960 Author Organization [facility] Address [address] [place] [phone] Encounter HQ Brian(LOUIE) [id number] Date(s): 09/07/18 - 10/06/[address] [place] Encounter Diagnosis Hemiplegia and hemiparesis following cerebral infarction affecting left non- dominant side (Final) - 10/12/18 Dysarthria following cerebral infarction (Final) - Other sequelae of cerebral infarction (Final) - Other speech and language deficits following cerebral infarction (Final) - Discharge Disposition: Home or Self Care Attending Physician: Carlos Ramos MD Vital Signs Most recent to oldest 1 2 3 [Reference Range]: Blood Pressure [90-140/60-90 135/65 mmHg 127/86 mmHg 121/67 mmHg mmHg] (10/03/18 2:21 PM) (10/01/18 5:47 PM) (09/10/18 5:06 PM) Peripheral Pulse Rate [60-100 56 bpm 67 bpm 59 bpm bpm] *LOW* (10/01/18 5:47 PM) *LOW* (10/03/18 2:21 PM) (09/10/18 5:06 PM) Problem List Condition Effective Dates Status Health Status Informant Cerebrovascular accident Active (CVA)(Confirmed) Stroke(Confirmed) Active Dysarthria(Confirmed) Active History of TIAs(Confirmed) Active Hyperlipidemia(Confirmed) Active Hypertension(Confirmed) Active HTN (hypertension)(Confirmed) Active IBS (irritable bowel Active syndrome)(Confirmed) Left spastic hemiparesis(Confirmed) Active Spasm of muscle(Confirmed) Active Allergies, Adverse Reactions, Alerts Substance Reaction Severity Status codeine Active Medications No data available for this section Results No data available for this section [...]
--- OUTSIDE RECORDS SUMMARY | 2019-05-05 12:20 | XMS REPORT | Summary of Care ---
:1960 Author Organization [facility] Address [address] [place] [phone] Encounter HQ Encntr_dennis(FIN) [id number] Date(s): 02/27/19 - 03/28/[address] [place] Discharge Disposition: Home or Self Care Attending Physician: Carlos Ramos MD Vital Signs No data available for this section Problem List Condition Effective Dates Status Health [...]
--- OUTSIDE RECORDS SUMMARY | 2019-05-05 12:20 | XMS REPORT | Summary of Care ---
:1960 Author Organization [facility] Address [address] [place] [address] Encounter HQ Paramjit_dennis(LOUIE) [id number] Date(s): 05/01/19 - 05/01/[address] [address] [phone] Discharge Disposition: Home or Self Care Attending Physician: Annabelle Friedman MD Referring Physician: Annabelle Friedman MD Vital Signs Most recent to oldest [Reference Range]: 1 Height 167.64 cm (05/01/19 11:52 AM) Blood Pressure [90-140/60-90 mmHg] 127/77 mmHg (05/01/19 11:52 AM) Respiratory Rate [14-20 BRMIN] 18 BRMIN (05/01/19 11:52 AM) Peripheral Pulse Rate [60-100 bpm] 62 bpm (05/01/19 11:52 AM) Weight 75 kg (05/01/19 11:52 AM) Body Mass Index 26.69 m2 (05/01/19 11:52 AM) Problem List Condition Effective Dates Status Health Status Informant Cerebrovascular accident Active (CVA)(Confirmed) Stroke(Confirmed) Active Dysarthria(Confirmed) Active History of TIAs(Confirmed) Active Hyperlipidemia(Confirmed) Active Hypertension(Confirmed) Active HTN (hypertension)(Confirmed) Active IBS (irritable bowel Active syndrome)(Confirmed) Left spastic hemiparesis(Confirmed) Active Spasm of muscle(Confirmed) Active Allergies, Adverse Reactions, Alerts Substance Reaction Severity Status codeine Active Medications ONAbotulinumtoxinA 600 unit, Route: IM, ONCALL, Dosing Weight 72.727, kg, Start date: 05/01/19 13: 00:00 CDT, Duration: 30 day, Stop date: 05/31/19 12:59:00 CDT Start Date: 05/01/19 Stop Date: 05/01/19 Status: Completed Results No data available for this section Immunizations Given and Recorded Vaccine Date Status Refusal Reason influenza virus vaccine, inactivated 08/28/18 Given Procedures Procedure Date Related Diagnosis Body Site Status Chemodenervation of one extremity; 5 or 05/01/19 Completed more muscles Chemodenervation of one extremity; each 05/01/19 Completed additional extremity, 5 or more muscles (List [...] 0.0; Stopped at age: 1; entered on: 05/01/19 Assessment and Plan No data available for this section
--- OUTSIDE RECORDS SUMMARY | 2019-05-05 12:20 | XMS REPORT | Summary of Care ---
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 (Final) - 09/14/18 Dysarthria following cerebral infarction (Final) - Other sequelae of cerebral infarction (Final) - Other speech and language deficits following cerebral infarction (Final) - Other abnormalities of gait and mobility (Final) - Discharge Disposition: Home or Self Care Attending Physician: Carlos Ramos MD Referring Physician: Carlos Ramos MD Vital Signs Most recent to oldest [Reference Range]: 1 2 Blood Pressure [90-140/60-90 mmHg] 141/73 mmHg 126/68 mmHg *HI* (08/08/18 11:00 AM) (08/27/18 5:53 PM) Peripheral Pulse Rate [60-100 bpm] 60 bpm 53 bpm (08/27/18 5:53 PM) *LOW* (08/08/18 11:00 AM) Problem List Condition Effective Dates Status Health Status Informant Cerebrovascular accident Active (CVA)(Confirmed) Stroke(Confirmed) Active Dysarthria(Confirmed) Active History of TIAs(Confirmed) Active Hyperlipidemia(Confirmed) Active Hypertension(Confirmed) Active HTN (hypertension)(Confirmed) Active IBS (irritable bowel Active syndrome)(Confirmed) Allergies, Adverse Reactions, Alerts Substance Reaction Severity Status codeine Active Medications atorvastatin 80 mg oral tablet 80 mg=1 tab, PO, Bedtime, # 30 tab, 1 Refill(s), Pharmacy: [facility]/pharmacy #[id number] Start Date: 08/22/18 Stop Date: 08/28/18 Status: Discontinuedlinaclotide 290 mcg oral capsule 290 microgram=1 cap, PO, Daily, # 30 cap, 1 Refill(s), [id number] Start Date: 08/22/18 Stop Date: 08/26/18 Status: Completedloratadine 10 mg oral tablet 10 mg=1 tab, PO, Daily, # 30 tab, 1 Refill(s), [id number] Start Date: 08/22/18 Stop Date: 08/28/18 Status: Discontinuedtrazodone 50 mg oral tablet 25 mg=0.5 tab, PO, Bedtime, # 15 tab, 1 Refill(s), [id number] Start Date: 08/22/18 Stop Date: 08/26/18 Status: Discontinued Results No data available for this section [...]
--- OUTSIDE RECORDS SUMMARY | 2019-05-05 12:21 | XMS REPORT | Summary of Care ---
:1960 Author Organization [facility] Address [address] [place] [phone] Encounter HQ Brian(FIN) [id number] Date(s): 11/21/18 - 11/21/[address] Discharge Disposition: Home or Self Care Attending Physician: Bessy Del Rio MD Referring Physician: Bessy Del Rio MD Vital Signs Most recent to oldest [Reference Range]: 1 Height 167.64 cm (11/21/18 10:00 AM) Blood Pressure [90-140/60-90 mmHg] 131/79 mmHg (11/21/18 10:00 AM) Respiratory Rate [14-20 BRMIN] 20 BRMIN (11/21/18 10:00 AM) Peripheral Pulse Rate [60-100 bpm] 65 bpm (11/21/18 10:00 AM) Weight 71.818 kg (11/21/18 10:00 AM) Body Mass Index 25.56 m2 (11/21/18 10:00 AM) Problem List Condition Effective Dates Status Health Status Informant Cerebrovascular accident Active (CVA)(Confirmed) Stroke(Confirmed) Active Dysarthria(Confirmed) Active History of TIAs(Confirmed) Active Hyperlipidemia(Confirmed) Active Hypertension(Confirmed) Active HTN (hypertension)(Confirmed) Active IBS (irritable bowel Active syndrome)(Confirmed) Allergies, Adverse Reactions, Alerts Substance Reaction Severity Status codeine Active Medications sertraline 50 mg oral tablet 50 mg=1 tab, PO, Daily, # 90 tab, 1 Refill(s), Pharmacy: [facility]/pharmacy #[id number] Start Date: 10/14/18 Status: Ordered Results No data available for this section [...] 0.0; Stopped at age: 1; entered on: 11/21/18 Assessment and Plan No data available for this section
--- OUTSIDE RECORDS SUMMARY | 2019-05-05 12:21 | XMS REPORT | Summary of Care ---
:[address] [facility] Address [address] [place] [phone] Encounter HQ Encntr_dennis(FIN) [id number] Date(s): 12/03/18 - 01/01/[address] Discharge Disposition: Home or Self Care [...] 365 Days No; Reg Smoking Cessation Counseling No entered on: 11/27/18 Assessment and Plan No data available for this section
--- OUTSIDE RECORDS SUMMARY | 2019-05-05 12:21 | XMS REPORT | Summary of Care ---
:1960 Author Organization [facility] Address [address] [place] [phone] Encounter HQ Brian(FIN) [id number] Date(s): 08/26/18 - 08/26/[address] [address] [phone] Encounter Diagnosis Other sequelae of cerebral infarction (Final) - 08/31/18 Pain in left shoulder (Final) - Discharge Disposition: Home or Self Care Attending Physician: Bessy Del Rio MD Referring Physician: Bessy Del Rio MD Vital Signs Most recent to oldest [Reference Range]: 1 Height 165.1 cm (08/26/18 10:01 AM) Weight 70.455 kg (08/26/18 10:01 AM) Body Mass Index 25.85 m2 (08/26/18 10:01 AM) Problem List Condition Effective Dates Status Health Status Informant Cerebrovascular accident Active (CVA)(Confirmed) Stroke(Confirmed) Active Dysarthria(Confirmed) Active History of TIAs(Confirmed) Active Hyperlipidemia(Confirmed) Active Hypertension(Confirmed) Active HTN (hypertension)(Confirmed) Active IBS (irritable bowel Active syndrome)(Confirmed) Allergies, Adverse Reactions, Alerts Substance Reaction Severity Status codeine Active Medications Linzess 72 mcg oral capsule 72 microgram=1 cap, PO, Daily, 0 Refill(s) Start Date: 08/26/18 Stop Date: 08/28/18 Status: Discontinuedsertraline 50 mg oral tablet 50 mg=1 tab, PO, Daily, # 30 tab, 1 Refill(s), Pharmacy: [facility]/pharmacy #[id number] Start Date: 08/26/18 Stop Date: 10/14/18 Status: Completed Results No data available for [...]
--- OUTSIDE RECORDS SUMMARY | 2019-05-05 12:21 | XMS REPORT | Summary of Care ---
:1960 Author Organization [facility] Address [address] [place] [phone] Encounter HQ Brian(FIN) [id number] Date(s): 11/27/18 - 11/27/[address] [place] [phone] Discharge Disposition: Home or Self Care Attending Physician: Bethany Santa MD Referring Physician: Bethany Santa MD Vital Signs Most recent to oldest [Reference Range]: 1 Height 167.64 cm (11/27/18 10:14 AM) Blood Pressure [90-140/60-90 mmHg] 145/79 mmHg *HI* (11/27/18 10:14 AM) Respiratory Rate [14-20 BRMIN] 20 BRMIN (11/27/18 10:14 AM) Peripheral Pulse Rate [60-100 bpm] 67 bpm (11/27/18 10:14 AM) Weight 71.818 kg (11/27/18 10:14 AM) Body Mass Index 25.56 m2 (11/27/18 10:14 AM) Problem List Condition Effective Dates Status Health Status Informant Cerebrovascular accident Active (CVA)(Confirmed) Stroke(Confirmed) Active Dysarthria(Confirmed) Active History of TIAs(Confirmed) Active Hyperlipidemia(Confirmed) Active Hypertension(Confirmed) Active HTN (hypertension)(Confirmed) Active IBS (irritable bowel Active syndrome)(Confirmed) Allergies, Adverse Reactions, Alerts Substance Reaction Severity Status codeine Active Medications ranitidine 150 mg oral tablet 150 mg=1 tab, PO, BID, # 60 tab, 0 Refill(s) Start Date: 11/27/18 Stop Date: 12/27/18 Status: Orderedtrazodone 50 mg oral tablet 50 mg=1 tab, PO, Bedtime, # 90 tab, 3 Refill(s), Pharmacy: [facility]/pharmacy #[id number] Start Date: 09/05/18 Status: Ordered Results No data available for [...]
--- OUTSIDE RECORDS SUMMARY | 2019-05-05 12:21 | XMS REPORT | Summary of Care ---
:[address] [facility] Address [address] [place] [phone] Encounter HQ Brian(FIN) [id number] Date(s): 08/28/18 - 08/28/[address] [address] [phone] Encounter Diagnosis Other sequelae of cerebral infarction (Final) - 09/05/18 Encounter for immunization (Final) - Discharge Disposition: Home or Self Care Attending Physician: Bethany Santa MD Referring Physician: Bethany Santa MD Vital Signs Most recent to oldest [Reference Range]: 1 Height 165.1 cm (08/28/18 10:23 AM) Blood Pressure [90-140/60-90 mmHg] 115/68 mmHg (08/28/18 10:23 AM) Respiratory Rate [14-20 BRMIN] 18 BRMIN (08/28/18 10:23 AM) Peripheral Pulse Rate [60-100 bpm] 54 bpm *LOW* (08/28/18 10:23 AM) Weight 70.455 kg (08/28/18 10:23 AM) Body Mass Index 25.85 m2 (08/28/18 10:23 AM) Problem List Condition Effective Dates Status Health Status Informant Cerebrovascular accident Active (CVA)(Confirmed) Stroke(Confirmed) Active Dysarthria(Confirmed) Active History of TIAs(Confirmed) Active Hyperlipidemia(Confirmed) Active Hypertension(Confirmed) Active HTN (hypertension)(Confirmed) Active IBS (irritable bowel Active syndrome)(Confirmed) Allergies, Adverse Reactions, Alerts Substance Reaction Severity Status codeine Active Medications amLODIPine 10 mg oral tablet 10 mg=1 tab, PO, Daily, # 90 tab, 3 Refill(s), Pharmacy: [facility]/pharmacy #[id number] Start Date: 08/28/18 Status: Orderedaspirin 81 mg tablet, chewable 81 mg=1 tab, CHEW, Daily, # 90 tab, 3 Refill(s), Pharmacy: [facility] #[id number] Start Date: 08/28/18 Status: Orderedatorvastatin 80 mg oral tablet 80 mg=1 tab, PO, Bedtime, # 90 tab, 3 Refill(s), Pharmacy: [facility] #[id number] Start Date: 08/28/18 Status: Orderedclopidogrel 75 mg oral tablet 75 mg=1 tab, PO, Daily, # 90 tab, 3 Refill(s), Pharmacy: [facility] #[id number] Start Date: 08/28/18 Status: OrderedLinzess 72 mcg oral capsule 72 microgram=1 cap, PO, Daily, # 90 cap, 3 Refill(s), Pharmacy: [facility] # [id number] Start Date: 08/28/18 Stop Date: 11/21/18 Status: Completedlisinopril 10 mg oral tablet 10 mg=1 tab, PO, Daily, # 90 tab, 3 Refill(s), Pharmacy: [facility] #[id number] Start Date: 08/28/18 Status: Orderedlisinopril 10 mg oral tablet 10 mg=1 tab, PO, Daily, # 30 tab, 0 Refill(s) Start Date: 08/28/18 Stop Date: 08/28/18 Status: Discontinuedloratadine 10 mg oral tablet 10 mg=1 tab, PO, Daily, # 90 tab, 3 Refill(s), Pharmacy: [facility] #[id number] Start Date: 08/28/18 Status: Orderedmetoprolol succinate 100 mg oral capsule, extended release 100 mg=1 cap, PO, Daily, # 90 cap, 3 Refill(s), Pharmacy: [facility] #[id number] Start Date: 08/28/18 Status: OrderedVoltaren Topical 1% topical gel 2 gm, TOP, QID, # 100 gm, 3 Refill(s), Pharmacy: [facility] #[id number] Start Date: 08/28/18 Status: Ordered Results No data available for [...]
--- OUTSIDE RECORDS SUMMARY | 2019-05-05 12:21 | XMS REPORT | Summary of Care ---
:1960 Author Organization [facility] Address [address] [place] [phone] Encounter HQ Paramjit_dennis(FIN) [id number] Date(s): 04/02/19 - 04/02/[address] [address] [phone] Discharge Disposition: Home or Self Care Attending Physician: Annabelle Friedman MD Referring Physician: Annabelle Friedman MD Vital Signs Most recent to oldest [Reference Range]: 1 Height 167.64 cm (04/02/19 1:12 PM) Blood Pressure [90-140/60-90 mmHg] 146/77 mmHg *HI* (04/02/19 1:12 PM) Respiratory Rate [14-20 BRMIN] 20 BRMIN (04/02/19 1:12 PM) Peripheral Pulse Rate [60-100 bpm] 72 bpm (04/02/19 1:12 PM) Weight 72.727 kg (04/02/19 1:12 PM) Body Mass Index 25.88 m2 (04/02/19 1:12 PM) Problem List Condition Effective Dates Status Health Status Informant Cerebrovascular accident Active (CVA)(Confirmed) Stroke(Confirmed) Active Dysarthria(Confirmed) Active History of TIAs(Confirmed) Active Hyperlipidemia(Confirmed) Active Hypertension(Confirmed) Active HTN (hypertension)(Confirmed) Active IBS (irritable bowel Active syndrome)(Confirmed) Left spastic hemiparesis(Confirmed) Active Spasm of muscle(Confirmed) Active Allergies, Adverse Reactions, Alerts Substance Reaction Severity Status codeine Active Medications No Known Medications Results No data available for this section [...]
--- OUTSIDE RECORDS SUMMARY | 2019-05-05 12:21 | XMS REPORT | Summary of Care ---
:1960 Author Organization [facility] Address [address] [place] [phone] Encounter HQ Encntr_dennis(FIN) [id number] Date(s): 01/08/19 - 02/06/[address] Discharge Disposition: Home or Self Care [...]
--- OUTSIDE RECORDS SUMMARY | 2019-05-05 12:21 | XMS REPORT | Summary of Care ---
:1960 Author Organization [facility] Address [address] [place] [id number] Encounter HQ [email or web address](FIN) [id number] Date(s): 01/27/19 - 01/27/[address] [phone]- [phone] Discharge Disposition: Home or Self Care Attending Physician: Bessy Del Rio MD Referring Physician: Bessy Del Rio MD Vital Signs Most recent to oldest [Reference Range]: 1 Height 167.64 cm (01/27/19 3:17 PM) Blood Pressure [90-140/60-90 mmHg] 127/76 mmHg (01/27/19 3:17 PM) Respiratory Rate [14-20 BRMIN] 20 BRMIN (01/27/19 3:17 PM) Peripheral Pulse Rate [60-100 bpm] 69 bpm (01/27/19 3:17 PM) Weight 71.818 kg (01/27/19 3:17 PM) Body Mass Index 25.56 m2 (01/27/19 3:17 PM) Problem List Condition Effective Dates Status Health Status Informant Cerebrovascular accident Active (CVA)(Confirmed) Stroke(Confirmed) Active Dysarthria(Confirmed) Active History of TIAs(Confirmed) Active Hyperlipidemia(Confirmed) Active Hypertension(Confirmed) Active HTN (hypertension)(Confirmed) Active IBS (irritable bowel Active syndrome)(Confirmed) Allergies, Adverse Reactions, Alerts Substance Reaction Severity Status codeine Active Medications ONAbotulinumtoxinA 600 unit, Route: IM, ONCALL, Dosing Weight 71.818, kg, Start date: 01/27/19 16: 00:00 CDT, Duration: 30 day, Stop date: 02/26/19 15:59:00 CDT Start Date: 01/27/19 Stop Date: 01/27/19 Status: Completed Results No data available for this section Immunizations Given and Recorded Vaccine Date Status Refusal Reason influenza virus vaccine, inactivated 08/28/18 Given Procedures Procedure Date Related Diagnosis Body Site Status Chemodenervation of one extremity; 5 or 01/27/19 Completed more muscles Chemodenervation of one extremity; each 01/27/19 Completed additional extremity, 5 or more muscles [...]
--- OUTSIDE RECORDS SUMMARY | 2019-05-05 12:21 | XMS REPORT | Summary of Care ---
:1960 Author Organization [facility] Address [address] [place] [phone] Encounter HQ [email or web address](FIN) [id number] Date(s): 12/07/18 - 01/05/[address] [place] Discharge Disposition: Home or Self Care Attending Physician: Carlos Ramos MD Vital Signs Most recent to oldest [Reference Range]: 1 Blood Pressure [90-140/60-90 mmHg] 136/75 mmHg (12/12/18 3:31 PM) Peripheral Pulse Rate [60-100 bpm] 62 bpm (12/12/18 3:31 PM) Problem List Condition Effective Dates Status [...]
--- OUTSIDE RECORDS SUMMARY | 2019-05-05 12:21 | XMS REPORT | Summary of Care ---
:1960 Author Organization [facility] Address [address] [place] [phone] Encounter HQ Paramjit_dennis(FIN) [id number] Date(s): 01/06/19 - 02/04/[address] [place] Discharge Disposition: Home or Self Care Attending Physician: Carlos Ramos MD Vital Signs Most recent to oldest [Reference Range]: 1 Blood Pressure [90-140/60-90 mmHg] 138/68 mmHg (01/14/19 2:19 PM) Peripheral Pulse Rate [60-100 bpm] 58 bpm *LOW* (01/14/19 2:19 PM) Problem List Condition Effective Dates Status [...]
--- OUTSIDE RECORDS SUMMARY | 2019-05-05 12:22 | XMS REPORT | Summary of Care ---
:1960 Author Organization [facility] Address [address] [place] [phone] Encounter HQ Rajanir_dennis(FIN) [id number] Date(s): 11/06/18 - 12/05/[address] [phone] Discharge Disposition: Home or Self Care Attending Physician: Carlos Ramos MD Vital Signs Most recent to oldest [Reference Range]: 1 2 Blood Pressure [90-140/60-90 mmHg] 135/70 mmHg 126/69 mmHg (12/04/18 4:38 PM) (12/03/18 5:26 PM) Peripheral Pulse Rate [60-100 bpm] 64 bpm 59 bpm (12/04/18 4:38 PM) *LOW* (12/03/18 5:26 PM) Problem List Condition Effective Dates Status [...]
--- OUTSIDE RECORDS SUMMARY | 2019-05-05 12:22 | XMS REPORT | Summary of Care ---
:1960 Author Organization [facility] Address [address] [place] [id number] Encounter HQ Brian(FIN) [id number] Date(s): 06/04/18 - 07/02/[address] [place] Encounter Diagnosis Cerebrovascular disease, unspecified (Final) - Hemiplegia and hemiparesis following cerebral infarction affecting left non- dominant side (Final) - 07/06/18 Other dystonia (Final) - Dysarthria following cerebral infarction (Final) - Other speech and language deficits following cerebral infarction (Final) - Other sequelae of cerebral infarction (Final) - Other muscle spasm (Final) - Neuromuscular dysfunction of bladder, unspecified (Final) - Essential (primary) hypertension (Final) - Hyperlipidemia, unspecified (Final) - Insomnia, unspecified (Final) - Constipation, unspecified (Final) - Gastro-esophageal reflux disease without esophagitis (Final) - Irritable bowel syndrome without diarrhea (Final) - Hypokalemia (Final) - Hypomagnesemia (Final) - Other seasonal allergic rhinitis (Final) - Pain in left shoulder (Final) - Pain in right shoulder (Final) - Other specified anxiety disorders (Final) - Adjustment disorder with anxiety (Final) - Nausea (Final) - Discharge Disposition: Other Healthcare Facility Attending Physician: Carlos Ramos MD Admitting Physician: Carlos Ramos MD Vital Signs Most recent to oldest [Reference 1 2 3 Range]: Height 165.1 cm 165.1 cm (06/04/18 7:35 PM) (06/04/18 7:35 PM) Current Weight 75.256 kg (06/04/18 7:35 PM) Systolic Blood Pressure [90-140 138 mmHg 119 mmHg 144 mmHg mmHg] (07/02/18 7:08 AM) (07/01/18 7:30 PM) *HI* (07/01/18 7:30 AM) Diastolic Blood Pressure [60-90 77 mmHg 64 mmHg 76 mmHg mmHg] (07/02/18 7:08 AM) (07/01/18 7:30 PM) (07/01/18 7:30 AM) Respiratory Rate [14-20 BRMIN] 17 BRMIN 18 BRMIN 18 BRMIN (07/02/18 7:08 AM) (07/01/18 7:30 PM) (07/01/18 7:30 AM) Peripheral Pulse Rate [60-100 bpm] 57 bpm 62 bpm 60 bpm *LOW* (07/01/18 7:30 PM) (07/01/18 7:30 AM) (07/02/18 7:08 AM) Weight 75.256 kg (06/04/18 7:35 PM) Body Mass Index 27.61 m2 (06/04/18 7:35 PM) Problem List Condition Effective Dates Status Health Status Informant Cerebrovascular accident Active (CVA)(Confirmed) Stroke(Confirmed) Active Dysarthria(Confirmed) Active History of TIAs(Confirmed) Active Hyperlipidemia(Confirmed) Active Hypertension(Confirmed) Active HTN (hypertension)(Confirmed) Active IBS (irritable bowel Active syndrome)(Confirmed) Allergies, Adverse Reactions, Alerts Substance Reaction Severity Status codeine Active Medications acetaminophen 650 mg, 2 tab, Route: PO, Drug form: TAB, Q4H, kg, PRN Pain 1-3/Temp > 100.4 F, Start date: 06/04/18 19:43:00 CDT, Duration: 30 day, Stop date: 08/03/18 19: 42:00 CDT Notes: Do not exceed 4 gm/day. (Same as: Tylenol) Start Date: 06/04/18 Stop Date: 07/02/18 Status: DiscontinuedamLODIPine 10 mg, 1 tab, Route: PO, Drug form: TAB, Daily, kg, Start date: 06/05/18 8:30: 00 CDT, Duration: 30 day, Stop date: 07/04/18 8:30:00 CDT Notes: (Same as: Norvasc) Start Date: 06/05/18 Stop Date: 06/05/18 Status: DiscontinuedamLODIPine 10 mg, PO, Daily, Hold if SBP < 10, DBP < 50 or patient is on pressor, 0 Refill(s) Start Date: 05/31/18 Stop Date: 06/28/18 Status: DiscontinuedamLODIPine 10 mg, 1 tab, Route: PO, Drug form: TAB, Daily, kg, Start date: 06/06/18 8:30: 00 CDT, Duration: 30 day, Stop date: 08/04/18 8:30:00 CDT Notes: (Same as: Norvasc) Start Date: 06/06/18 Stop Date: 07/02/18 Status: DiscontinuedamLODIPine 10 mg oral tablet 10 mg=1 tab, PO, Daily, # 30 tab, 1 Refill(s), Pharmacy: [facility]/pharmacy #[id number] Start Date: 06/28/18 Stop Date: 08/28/18 Status: Discontinuedaspirin 81 mg, CHEW, Daily, 0 Refill(s) Start Date: 05/31/18 Stop Date: 06/28/18 Status: Discontinuedaspirin 81 mg, 1 tab, Route: CHEW, Drug form: CHEWTAB, Daily, kg, Start date: 06/05/18 8 :30:00 CDT, Duration: 30 day, Stop date: 08/03/18 8:30:00 CDT Notes: Take with food. 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: (Same as: Lipitor) Start Date: 06/04/18 Stop Date: 07/02/18 Status: Discontinuedatorvastatin 80 mg, PO, Bedtime, 0 Refill(s) Start Date: 05/31/18 Stop Date: 06/28/18 Status: Discontinuedatorvastatin 80 mg oral tablet 80 mg=1 tab, PO, Bedtime, # 30 tab, 1 Refill(s), Pharmacy: [facility]/pharmacy #[id number] Start Date: 06/28/18 Stop Date: 08/22/18 Status: Completedbaclofen 10 mg, 1 tab, Route: PO, Drug form: TAB, Q8H, Dosing Weight 75.256, kg, PRN as needed for muscle spasm, Start date: 06/09/18 14:50:00 CDT, Duration: 30 day, Stop date: 07/09/18 14:49:00 CDT Notes: (Same As: Taj) Start Date: 06/09/18 Stop Date: 06/17/18 Status: Discontinuedbaclofen 5 mg, PO, TID, 0 Refill(s) Start Date: 05/31/18 Stop Date: 06/28/18 Status: Discontinuedbaclofen 10 mg, 1 tab, Route: PO, Drug form: TAB, Q8PM, Dosing Weight 75.256, kg, Start date: 06/17/18 20:00:00 CDT, Duration: 30 day, Stop date: 07/16/18 20:00:00 CDT Notes: (Same As: Taj) Start Date: 06/17/18 Stop Date: 07/01/18 Status: Discontinuedbaclofen 5 mg, 0.5 tab, Route: PO, Drug form: TAB, Q8H, Dosing Weight 75.256, kg, PRN as needed for muscle spasm, Start date: 06/08/18 20:09:00 CDT, Duration: 30 day, Stop date: 07/08/18 20:08:00 CDT Notes: (Same As: Taj) Start Date: 06/08/18 Stop Date: 06/09/18 Status: Discontinuedbaclofen 10 mg, 1 tab, Route: PO, Drug form: TAB, Q8PM, Dosing Weight 75.256, kg, PRN as needed for muscle spasm, Start date: 07/01/18 15:22:00 CDT, Duration: 30 day, Stop date: 07/31/18 15:21:00 CDT Notes: (Same As: Taj) Start Date: 07/01/18 Stop Date: 07/02/18 Status: Discontinuedbaclofen 5 mg, 0.5 tab, Route: PO, Drug form: TAB, TID, kg, Start date: 06/04/18 21:00: 00 CDT, Duration: 30 day, Stop date: 07/04/18 13:00:00 CDT Notes: (Same As: Lioresal) Start Date: 06/04/18 Stop Date: 06/08/18 Status: Discontinuedbaclofen 10 mg oral tablet 10 mg=1 tab, PO, Bedtime, # 30 tab, 1 Refill(s), Pharmacy: [facility]/pharmacy #[id number] Start Date: 06/28/18 Stop Date: 08/26/18 Status: Discontinuedbisacodyl 10 mg, 1 supp, Route: NM, Drug form: SUPP, Bedtime, kg, PRN Constipation, Start date: 06/04/18 19:43:00 CDT, Duration: 30 day, Stop date: 08/03/18 19:42:00 CDT Notes: (Same As: Dulcolax, Bisco-Lax) Start Date: 06/04/18 Stop Date: 07/02/18 Status: DiscontinuedclonazePAM 0.25 mg, PO, BID, 0 Refill(s) Start Date: 05/31/18 Stop Date: 06/28/18 Status: DiscontinuedclonazePAM 0.25 mg, 0.5 tab, Route: PO, Drug form: TAB, BID, kg, Start date: 06/04/18 21:00 :00 CDT, Duration: 30 day, Stop date: 07/04/18 8:30:00 CDT Notes: (Same As: KlonoPIN) Start Date: 06/04/18 Stop Date: 06/05/18 Status: Discontinuedclopidogrel 75 mg oral tablet 75 mg=1 tab, PO, Daily, # 30 tab, 1 Refill(s), Pharmacy: [facility]/pharmacy #[id number] Start Date: 06/28/18 Stop Date: 08/28/18 Status: Discontinueddocusate sodium 100 mg, 1 cap, Route: PO, Drug form: CAP, BID, Dosing Weight 75.256, kg, PRN as needed for constipation, Start date: 06/12/18 14:02:00 CDT, Duration: 60 day, Stop date: 08/11/18 14:01:00 CDT Notes: (Same as: Colace) (Do Not Crush) Start Date: 06/12/18 Stop Date: 07/02/18 Status: Discontinueddocusate sodium 100 mg, 1 cap, Route: PO, Drug form: CAP, Daily, Dosing Weight 75.256, kg, PRN as needed for constipation, Start date: 06/12/18 11:29:00 CDT, Duration: 60 day , Stop date: 08/11/18 11:28:00 CDT Notes: (Same as: Colace) (Do Not Crush) Start Date: 06/12/18 Stop Date: 06/12/18 Status: Discontinueddocusate sodium 100 mg, 1 cap, Route: PO, Drug form: CAP, Daily, Dosing Weight 75.256, kg, Start date: 06/09/18 8:30:00 CDT, Duration: 60 day, Stop date: 08/07/18 8:30:00 CDT Notes: (Same as: Colace) (Do Not Crush) Start Date: 06/09/18 Stop Date: 06/12/18 Status: Discontinueddocusate-senna 50 mg-8.6 mg oral tablet 1 tab, PO, BID, 0 Refill(s) Start Date: 05/31/18 Stop Date: 06/28/18 Status: Discontinuedenoxaparin 40 mg, SUB-Q, Daily, 0 Refill(s) Start Date: 05/31/18 Stop Date: 06/28/18 Status: Discontinuedenoxaparin 40 mg, 0.4 mL, Route: SUB-Q, Drug form: INJ, Daily, kg, Start date: 06/05/18 8: 30:00 CDT, Duration: 30 day, Stop date: 08/03/18 8:30:00 CDT Notes: (Same as: Lovenox) Start Date: 06/05/18 Stop Date: 07/02/18 Status: Discontinuedfamotidine 20 mg=1 tab, PO, BID, # 60 tab, 0 Refill(s) Start Date: 05/31/18 Stop Date: 06/28/18 Status: Discontinuedfamotidine 20 mg, 1 tab, Route: PO, Drug form: TAB, BID, kg, Start date: 06/04/18 21:00:00 CDT, Duration: 30 day, Stop date: 07/04/18 8:30:00 CDT Notes: (Same as: Pepcid) Start Date: 06/04/18 Stop Date: 06/12/18 Status: DiscontinuedhydrALAZINE 25 mg oral tablet 25 mg, 1 tab, Route: PO, Drug form: TAB, Q6H, Dosing Weight 75.256, kg, PRN Hypertension, Start date: 06/05/18 13:26:00 CDT, Duration: 30 day, Stop date: 13:25:00 CDT Notes: (Same as: Apresoline) May interfere w/enteral feedings Take With Food. Start Date: 06/05/18 Stop Date: 07/02/18 Status: DiscontinuedlevETIRAcetam 1,500 mg, Route: IV, Drug form: INJ, PRN, kg, PRN Seizure, Start date: 06/04/18 19:43:00 CDT, Duration: 30 day, Stop date: 08/03/18 19:42:00 CDT Notes: Same as KeppraMix with 100 mL NS, LR or D5W MEDICATION WASTE Product Size: 500 mgProduct Wasted: ___ mg Start Date: 06/04/18 Stop Date: 07/02/18 Status: Discontinuedlidocaine 1% preservative-free injectable solution 100 mg, 10 mL, Route: NERVE BLOCK, Drug Form: INJ, Dosing Weight 75.256, kg, ONCALL, Start date: 06/19/18 20:00:00 CDT, Duration: 1 doses or times Notes: (Same as: Xylocaine) Start Date: 06/19/18 Stop Date: 06/21/18 Status: Completedlinaclotide 290 microgram, PO, Daily, Pt's own med, 0 Refill(s) Start Date: 05/31/18 Stop Date: 06/28/18 Status: Discontinuedlinaclotide linaclotide, 290 microgram, Route: PO, Daily, 06/05/18 8:30:00 CDT, Duration: 30 day, Stop date: 07/04/18 8:30:00 CDT Start Date: 06/05/18 Stop Date: 06/05/18 Status: Deletedlinaclotide 290 microgram, 2 cap, Route: PO, Drug form: CAP, Daily, Start date: 06/05/18 7: 30:00 CDT, Duration: 30 day, Stop date: 07/04/18 7:30:00 CDT Notes: Same as: LinzessNon-formulary Use is contraindicated in pediatric patients < 6 years old. Start Date: 06/05/18 Stop Date: 06/19/18 Status: Discontinuedlinaclotide 290 microgram, 2 cap, Route: PO, Drug form: CAP, Before Breakfast, Start date: 06/20/18 7:00:00 CDT,Duration: 60 day, Stop date: 08/18/18 7:00:00 CDT Notes: Same as: LinzessNon-formulary Use is contraindicated in pediatric patients < 6 years old. Start Date: 06/20/18 Stop Date: 07/02/18 Status: Discontinuedlinaclotide 290 mcg oral capsule 290 microgram=1 cap, PO, Daily, Pt's own med, # 30 cap, 1 Refill(s), Pharmacy: [facility]/pharmacy #[id number] Start Date: 06/28/18 Stop Date: 08/22/18 Status: CompletedLopressor 75 mg, 3 tab, Route: PO, Drug form: TAB, Q12H, kg, Start date: 06/19/18 21:00: 00 CDT, Duration: 30 day, Stop date: 07/19/18 9:00:00 CDT Notes: (Same as: Lopressor) Start Date: 06/19/18 Stop Date: 07/02/18 Status: DiscontinuedLopressor 25 mg, 1 tab, Route: PO, Drug form: TAB, ONCE, Start date: 06/06/18 9:19:00 CDT , Stop date: 189:19:00 CDT Notes: (Same as: Lopressor) Start Date: 06/06/18 Stop Date: 06/06/18 Status: CompletedLopressor 75 mg, 3 tab, Route: PO, Drug form: TAB, Q12H, kg, Start date: 06/08/18 21:00: 00 CDT, Duration: 30 day, Stop date: 07/08/18 9:00:00 CDT Notes: (Same as: Lopressor) Start Date: 06/08/18 Stop Date: 06/19/18 Status: DiscontinuedLopressor 25 mg, 1 tab, Route: PO, Drug form: TAB, Q12H, kg, Start date: 06/04/18 21:00: 00 CDT, Duration: 30 day, Stop date: 07/04/18 9:00:00 CDT Notes: (Same as: Lopressor) Start Date: 06/04/18 Stop Date: 06/05/18 Status: DiscontinuedLopressor 50 mg, 1 tab, Route: PO, Drug form: TAB, Q12H, kg, Start date: 06/06/18 21:00: 00 CDT, Duration: 30 day, Stop date: 07/06/18 9:00:00 CDT Notes: (Same as: Lopressor) Start Date: 06/06/18 Stop Date: 06/08/18 Status: DiscontinuedLopressor 25 mg, 1 tab, Route: PO, Drug form: TAB, Q12H, kg, Start date: 06/05/18 21:00: 00 CDT, Duration: 30 day, Stop date: 07/05/18 9:00:00 CDT Notes: (Same as: Lopressor) Start Date: 06/05/18 Stop Date: 06/06/18 Status: Discontinuedloratadine 10 mg, 1 tab, Route: PO, Drug form: TAB, Daily, Dosing Weight 75.256, kg, Start date: 06/06/18 8:30:00 CDT, Duration: 30 day, Stop date: 08/04/18 8:30:00 CDT Notes: 1 hr before meals (Same as: Claritin)Non-formulary item Start Date: 06/06/18 Stop Date: 07/02/18 Status: Discontinuedloratadine 10 mg oral tablet 10 mg=1 tab, PO, Daily, # 30 tab, 1 Refill(s), Pharmacy: [facility]/pharmacy #[id number] Start Date: 06/28/18 Stop Date: 08/22/18 Status: CompletedMaalox Advanced Regular Strength SUSP 30 mL, Route: PO, Drug Form: SUSP, Dosing Weight 75.256, kg, QID, PRN Indigestion, Start date: 06/06/18 10:23:00 CDT, Duration: 60 day, Stop date: 06/15 10:22:00 CDT Notes: (aluminum hydroxide-magnesium hyd- simethicone [phone]/5ml MARGO) ( Same as: Maalox Plus Extra Strength) Start Date: 06/06/18 Stop Date: 06/06/18 Status: DiscontinuedMaalox Advanced Regular Strength SUSP 30 mL, Route: PO, Drug Form: SUSP, Dosing Weight 75.256, kg, QID, PRN Indigestion, Start date: 06/06/18 0:05:00 CDT, Duration: 30 day, Stop date: 06/15 0:04:00 CDT Notes: (aluminum hydroxide-magnesium hyd-simethicone [phone]/5ml 30 ml ud MARGO) Start Date: 06/06/18 Stop Date: 07/02/18 Status: Discontinuedmetoprolol 25 mg oral tablet, extended release 25 mg=1 tab, PO, BID, Hold if SBP <100, DBP <50 or HR <50 bpm, or pt ricarda pressor or inotrope, 0 Refill(s) Start Date: 05/31/18 Stop Date: 06/28/18 Status: Discontinuedmetoprolol tartrate 50 mg oral tablet 75 mg=1.5 tab, PO, Q12H, # 90 tab, 1 Refill(s), Pharmacy: [facility]/pharmacy #[id number] Start Date: 06/28/18 Stop Date: 08/28/18 Status: Deletedmidazolam 5 mg, 1 mL, Route: IM, Drug form: INJ, PRN, kg, PRN Seizure, Start date: 19:43:00 CDT, Duration: 30 day, Stop date: 08/03/18 19:42:00 CDT Notes: (Same as:Versed) Start Date: 06/04/18 Stop Date: 07/02/18 Status: DiscontinuedMilk of Magnesia 30 ml, Route: PO, Drug Form: SUSP, Dosing Weight 75.256, kg, ONCE, Start date: 06/06/18 10:22:00 CDT, Stop date: 06/06/18 10:22:00 CDT Notes: (Same as: Milk of Magnesia, MOM) Start Date: 06/06/18 Stop Date: 06/06/18 Status: CompletedONAbotulinumtoxinA 300 unit, Route: IM, Drug form: INJ, ONCALL, Dosing Weight 75.256, kg, Start date: 06/26/18 16:00:00CDT, Duration: 30 day, Stop date: 07/26/18 15:59:00 CDT Notes: "TO BE RECONSTITUTED AND ADMINISTERED ONLY BY A PHYSICIAN"Reconstitute with preservative freeNS only. Stability=4 hours after reconstitution. (Same As : Botox)WASTE: F/P - Red; E -Red Start Date: 06/26/18 Stop Date: 06/27/18 Status: Completedpantoprazole 40 mg oral enteric coated tablet 40 mg=1 tab, PO, Before Breakfast, # 30 tab, 1 Refill(s), Pharmacy: [facility]/ pharmacy #[id number] Start Date: 06/28/18 Stop Date: 08/28/18 Status: Discontinuedphenol 6% AQ in water for injection 10 mL, Route: NERVE BLOCK, Drug Form: INJ, Dosing Weight 75.256, kg, IGNACIO, Start date: 06/24/18 14:00:00 CDT, Duration: 30 day, Stop date: 07/24/18 13:59: 00 CDT Notes: WASTE: F/P - Black; E - Municipal Trash Bin Start Date: 06/24/18 Stop Date: 06/27/18 Status: CompletedPlavix 75 mg, PO, Daily, 0 Refill(s) Start Date: 05/31/18 Stop Date: 06/28/18 Status: DiscontinuedPlavix 75 mg, 1 tab, Route: PO, Drug form: TAB, Daily, kg, Start date: 06/05/18 8:30: 00 CDT, Duration: 30 day, Stop date: 08/03/18 8:30:00 CDT Notes: (Same As: Plavix) Start Date: 06/05/18 Stop Date: 07/02/18 Status: Discontinuedpotassium chloride 20 mEq/15 mL oral liquid 40 mEq, 30 mL, Route: PO, Drug form: LIQ, Q4Hnow, Dosing Weight 75.256, kg, Start date: 06/10/18 16:00:00 CDT, Duration: 2 doses or times, Stop date: 20:00:00 CDT Notes: (Same as: Potassium Chloride) Start Date: 06/10/18 Stop Date: 06/10/18 Status: CompletedProtonix 40 mg, 1 tab, Route: PO, Drug form: ECTAB, Before Breakfast, Dosing Weight 75.256, kg, Start date: 06/20/18 7:00:00 CDT, Duration: 60 day, Stop date: 08/18 7:00:00 CDT Notes: Tablet should not be chewed or crushed.(Same as: Protonix) Start Date: 06/20/18 Stop Date: 07/02/18 Status: DiscontinuedProtonix 40 mg, 1 tab, Route: PO, Drug form: ECTAB, Before Breakfast, Dosing Weight 75.256, kg, Start date: 06/14/18 7:00:00 CDT, Duration: 30 day, Stop date: 07/13 7:00:00 CDT Notes: Tablet should not be chewed or crushed.(Same as: Protonix) Start Date: 06/14/18 Stop Date: 06/19/18 Status: DiscontinuedSaline Flush 0.9% 10 mL, Route: IVP, Drug Form: INJ, kg, PRN, PRN Line Flush, Start date: 19:43:00 CDT, Duration: 30 day, Stop date: 08/03/18 19:42:00 CDT Notes: (Same as: BD Posiflush) Start Date: 06/04/18 Stop Date: 07/02/18 Status: Discontinuedsertraline 50 mg oral tablet 50 mg=1 tab, PO, Daily, # 30 tab, 1 Refill(s), Pharmacy: [facility]/pharmacy #[id number] Start Date: 06/28/18 Stop Date: 08/26/18 Status: Discontinuedtorsemide 20 mg, 1 tab, Route: PO, Drug form: TAB, Daily, kg, Start date: 06/05/18 8:30: 00 CDT, Duration: 30 day, Stop date: 07/04/18 8:30:00 CDT Notes: (Same As: Demadex) Start Date: 06/05/18 Stop Date: 06/05/18 Status: Discontinuedtorsemide 20 mg, PO, Daily, # 20 tab, 0 Refill(s) Start Date: 05/31/18 Stop Date: 06/28/18 Status: Discontinuedtrazodone 50 mg oral tablet 50 mg, 1 tab, Route: PO, Drug form: TAB, Bedtime, Dosing Weight 75.256, kg, Start date: 06/06/18 21:00:00 CDT, Duration: 60 day, Stop date: 08/04/18 21:00: 00 CDT Notes: (Same As: Ray) Start Date: 06/06/18 Stop Date: 06/07/18 Status: Discontinuedtrazodone 50 mg oral tablet 25 mg, 0.5 tab, Route: PO, Drug form: TAB, Bedtime, Dosing Weight 75.256, kg, Start date: 06/07/18 21:00:00 CDT, Duration: 60 day, Stop date: 08/05/18 21:00: 00 CDT Notes: (Same As: Ray) Start Date: 06/07/18 Stop Date: 07/02/18 Status: Discontinuedtrazodone 50 mg oral tablet 25 mg=0.5 tab, PO, Bedtime, # 15 tab, 1 Refill(s), Pharmacy: [facility]/pharmacy #[id number] Start Date: 06/28/18 Stop Date: 08/22/18 Status: CompletedTums 1,000 mg, 2 tab, Route: CHEW, Drug form: CHEWTAB, Q2H, Dosing Weight 75.256, kg , PRN Indigestion, Start date: 06/14/18 10:39:00 CDT, Duration: 30 day, Stop date: 07/14/18 10:38:00 CDT Notes: (Same As: Enoc)Calcium Carbonate 500 yu=956 mg elemental calcium Dose=_ mg calcium carbonate ( mg elemental calcium) Start Date: 06/14/18 Stop Date: 07/02/18 Status: DiscontinuedVoltaren Topical 1% topical gel 2 gm, 1 appl, Route: TOP, Drug form: GEL, QID, Dosing Weight 75.256, kg, Start date: 06/09/18 13:00:00 CDT, Duration: 60 day, Stop date: 08/08/18 8:30:00 CDT Notes: Same as: Voltaren Gel Start Date: 06/09/18 Stop Date: 07/02/18 Status: DiscontinuedVoltaren Topical 1% topical gel 2 gm, TOP, QID, # 100 gm, 1 Refill(s), Pharmacy: [facility]/pharmacy #[id number] Start Date: 06/28/18 Stop Date: 08/28/18 Status: DiscontinuedZegerid 20mg/1100mg Capsule Zegerid 20mg/1100mg Capsule, 1 cap, Drug form: MISC, Route: PO, Bedtime, 21:00:00 CDT, Duration: 60 day, Stop date: 08/07/18 21:00:00 CDT Start Date: 06/09/18 Stop Date: 06/28/18 Status: DiscontinuedZegerid 40 mg-1100 mg oral capsule 1 cap, Route: PO, Dosing Weight 75.256, kg, Daily, Start date: 06/08/18 8:30:00 CDT, Duration: 30 day, Stop date: 07/07/18 8:30:00 CDT, Patient's Own Meds Start Date: 06/08/18 Stop Date: 06/09/18 Status: DeletedZofran 4 mg, 2 mL, Route: IVP, Drug form: INJ, Q8H, Dosing Weight 75.256, kg, PRN Nausea, Start date: 06/06/18 10:22:00 CDT, Duration: 60 day, Stop date: 10:21:00 CDT Notes: (Same as: Zofran) MEDICATION WASTE Product Size: 4 mgProduct Wasted: ___ mg Start Date: 06/06/18 Stop Date: 06/06/18 Status: DiscontinuedZofran 4 mg, 1 tab, Route: PO, Drug form: TAB, Q8H, Dosing Weight 75.256, kg, PRN Nausea, Start date: 06/06/18 20:04:00 CDT, Duration: 30 day, Stop date: 20:03:00 CDT Notes: (Same as: Zofran) Start Date: 06/06/18 Stop Date: 07/02/18 Status: DiscontinuedZoloft 50 mg, Route: PO, Drug form: TAB, Daily, Dosing Weight 75.256, kg, Start date: 06/07/18 8:30:00 CDT,Duration: 30 day, Stop date: 07/06/18 8:30:00 CDT Start Date: 06/07/18 Stop Date: 06/06/18 Status: CanceledZoloft 50 mg, 1 tab, Route: PO, Drug form: TAB, Daily, Dosing Weight 75.256, kg, Start date: 06/06/18 8:45:00 CDT, Duration: 30 day, Stop date: 08/05/18 8:30:00 CDT Notes: (Same as: Zoloft) Start Date: 06/06/18 Stop Date: 07/02/18 Status: Discontinued Results ELECTROLYTES Most recent to oldest 1 2 3 [Reference Range]: Sodium Lvl [135-145 mEq/L] 146 mEq/L 143 mEq/L 143 mEq/L *HI* (06/24/18 5:23 AM) (06/17/18 5:21 AM) (07/01/18 6:01 AM) Potassium Lvl [3.5-5.1 mEq/L] 3.7 mEq/L 4.0 mEq/L 4.0 mEq/L (07/01/18 6:01 AM) (06/24/18 5:23 AM) (06/17/18 5:21 AM) Chloride Lvl [95-109 mEq/L] 110 mEq/L 107 mEq/L 107 mEq/L *HI* (06/24/18 5:23 AM) (06/17/18 5:21 AM) (07/01/18 6:01 AM) CO2 [24-32 mEq/L] 23 mEq/L 24 mEq/L 22 mEq/L *LOW* (06/24/18 5:23 AM) *LOW* (07/01/18 6:01 AM) (06/17/18 5:21 AM) AGAP [10.0-20.0 mEq/L] 16.7 mEq/L 16.0 mEq/L 18.0 mEq/L (07/01/18 6:01 AM) (06/24/18 5:23 AM) (06/17/18 5:21 AM) CHEM PANEL Most recent to oldest 1 2 3 [Reference Range]: Creatinine Lvl [0.50-1.40 0.89 mg/dL 0.93 mg/dL 0.93 mg/dL mg/dL] (07/01/18 6:01 AM) (06/24/18 5:23 AM) (06/17/18 5:21 AM) eGFR 71 mL/min/1.73m2 1 68 mL/min/1.73m2 2 68 mL/min/1.73m2 3 *NA* *NA* *NA* (07/01/18 6:01 AM) (06/24/18 5:23 AM) (06/17/18 5:21 AM) BUN [7-22 mg/dL] 16 mg/dL 19 mg/dL 17 mg/dL (07/01/18 6:01 AM) (06/24/18 5:23 AM) (06/17/18 5:21 AM) B/C Ratio [6-25] 18 18 (07/01/18 6:01 AM) (06/24/18:23 AM) (06/17/18 5: AM) Glucose Lvl [70-99 mg/dL] 82 mg/dL 83 mg/dL 84 mg/dL (07/01/18 6:01 AM) (06/24/18 5:23 AM) (06/17/18 5:21 AM) Total Protein [6.4-8.4 g/dL] 6.1 g/dL 6.1 g/dL 6.4 g/dL *LOW* *LOW* (06/17/18:21 AM) (07/01/18 6:01 AM) (06/24/18 5:23 AM) Albumin Lvl [3.5-5.0 g/dL] 2.8 g/dL 2.8 g/dL 3.0 g/dL *LOW* *LOW* *LOW* (07/01/18 6:01 AM) (06/24/18 5:23 AM) (06/17/18 5:21 AM) Globulin [2.7-4.2 g/dL] 3.3 g/dL 3.3 g/dL 3.4 g/dL (07/01/18 6:01 AM) (06/24/18 5:23 AM) (06/17/18 5:21 AM) A/G Ratio [0.7-1.6] 0.8 0.8 0.9 (07/01/18 6:01 AM) (06/24/18 5:23 AM) (06/17/18 5:21 AM) Calcium Lvl [8.5-10.5 mg/dL] 8.4 mg/dL 9.0 mg/dL 9.0 mg/dL *LOW* (06/24/18:23 AM) (06/17/18:21 AM) (07/01/18 6:01 AM) Phosphorus [2.5-4.5 mg/dL] 4.3 mg/dL 4.8 mg/dL 4.3 mg/dL (07/01/18 6:01 AM) *HI* (06/17/18: AM) (06/24/18 5:23 AM) Magnesium Lvl [1.8-2.4 1.7 mg/dL 2.0 mg/dL 2.0 mg/dL mg/dL] *LOW* (06/24/18:23 AM) (06/17/18 5: AM) (07/01/18 6:01 AM) ALT [0-65 unit/L] 32 unit/L 32 unit/L 37 unit/L (07/01/18: AM) (06/24/18 5:23 AM) (06/17/18 5:21 AM) AST [0-37 unit/L] 23 unit/L 18 unit/L 23 unit/L (07/01/18 6:01 AM) (06/24/18 5:23 AM) (06/17/18 5: AM) Alk Phos [39-136 unit/L] 68 unit/L 68 unit/L 67 unit/L (07/01/18 6: AM) (06/24/18 5:23 AM) (06/17/18 5: AM) Bili Total [0.2-1.3 mg/dL] 0.4 mg/dL 0.4 mg/dL 0.4 mg/dL (07/01/18 6:01 AM) (06/24/18 5:23 AM) (06/17/18 5:21 AM) Vitamin D, 25-OH, Total 70.7 ng/mL [30.0-100.0 ng/mL] (06/10/18 3:55 AM) 1Result Comment: The eGFR is calculated using the CKD-EPI formula. In most young , healthy individualsthe eGFR will be >90 mL/min/1.73m2. The eGFR declines with age. An eGFR of 60-89 may be normal insome populations, particularly the elderly, for whom the CKD-EPI formula has not been extensively validated. Use of the eGFR is not recommended in the following populations: Individuals with unstable creatinine concentrations, including patients and those with serious co-morbid conditions. Patients with extremes in muscle mass or diet. The data above are obtained from the [employer] ( [employer]) which additionally recommends that when the eGFR is used in patients with extremes of body mass index for purposesof drug dosing, the eGFR should be multiplied by the estimated BMI.2Result Comment: The eGFR is calculated using the CKD-EPI formula. In most young, healthy individualsthe eGFR will be >90 mL/min/1.73m2. The eGFR declines with age. An eGFR of 60-89 may be normal insome populations, particularly the elderly, for whom the CKD-EPI formula has not been extensively validated. Use of the eGFR is not recommended in the following populations: Individuals with unstable creatinine concentrations, including patients and those with serious co-morbid conditions. Patients with extremes in muscle mass or diet. The data above are obtained from the National Kidney Disease Education Program ( NKDEP) which additionally recommends that when the eGFR is used in patients with extremes of body mass index for purposesof drug dosing, the eGFR should be multiplied by the estimated BMI.3Result Comment: The eGFR is calculated using the CKD-EPI formula. In most young, healthy individualsthe eGFR will be >90 mL/min/1.73m2. The eGFR declines with age. An eGFR of 60-89 may be normal insome populations, particularly the elderly, for whom the CKD-EPI formula has not been extensively validated. Use of the eGFR is not recommended in the following populations: Individuals with unstable creatinine concentrations, including patients and those with serious co-morbid conditions. Patients with extremes in muscle mass or diet. The data above are obtained from the National Kidney Disease Education Program ( NKDEP) which additionally recommends that when the eGFR is used in patients with extremes of body mass index for purposesof drug dosing, the eGFR should be multiplied by the estimated BMI.LIPIDS Most recent to oldest [Reference Range]: 1 2 3 CHD Risk [3.90-5.80] 2.51 2.68 *LOW* *LOW* (07/01/18 6:01 AM) (8/13/18 7:30 AM) Chol [<=199 mg/dL] 98 mg/dL 107 mg/dL (07/01/18 6:01 AM) (06/10/18 7:30 AM) Trig [<=149 mg/dL] 100 mg/dL 124 mg/dL (07/01/18 6:01 AM) (06/10/18 7:30 AM) HDL [>=61 mg/dL] 39 mg/dL 40 mg/dL *LOW* *LOW* (07/01/18 6:01 AM) (06/10/18 7:30 AM) LDL (Calculated) [<=99 mg/dL] 39 mg/dL 42 mg/dL (07/01/18 6:01 AM) (06/10/18 7:30 AM) VLDL 20 25 *NA* *NA* (07/01/18:01 AM) (06/10/18 7:30 AM) SPECIAL CHEMISTRY Most recent to oldest [Reference Range]: 1 2 3 Hgb A1C [<=5.6 %] 6.0 % *HI* (06/05/18 6:20 AM) URINE AND STOOL Most recent to oldest [Reference Range]: 1 2 3 UA Turbidity [Clear] Clear (06/05/18 7:00 AM) UA Color [Yellow] Yellow *NA* (06/05/18 7:00 AM) UA pH [5.0-8.0] 6.0 (06/05/18 7:00 AM) UA Spec Grav [<=1.030] 1.015 (06/05/18 7:00 AM) UA Glucose [Negative mg/dL] Negative mg/dL (06/05/18 7:00 AM) UA Blood [Negative] Negative (06/05/18 7:00 AM) UA Ketones [Negative mg/dL] Negative mg/dL *NA* (06/05/18 7:00 AM) UA Protein [Negative mg/dL] Negative mg/dL (06/05/18 7:00 AM) UA Urobilinogen [0.1-1.0 EU/dL] 0.2 EU/dL (06/05/18 7:00 AM) UA Bili [Negative] Negative *NA* (06/05/18 7:00 AM) UA Leuk Est [Negative] Negative (06/05/18 7:00 AM) UA Nitrite [Negative] Negative (06/05/18 7:00 AM) UA WBC [None Seen /HPF] 0-2 /HPF (06/05/18 7:00 AM) UA Sq Epi [Few /LPF] Occasional /LPF (06/05/18 7:00 AM) IMMUNOLOGY Most recent to oldest [Reference Range]: 1 2 3 Prealbumin [18.0-45.0 mg/dL] 31.3 mg/dL (06/05/18 6:20 AM) HEMATOLOGY Most recent to oldest 1 2 3 [Reference Range]: WBC [3.7-10.4 K/CMM] 6.4 K/CMM 6.8 K/CMM 6.4 K/CMM (07/01/18 6:01 AM) (06/24/18 5:23 AM) (06/17/18 5:21 AM) RBC [4.20-5.40 M/CMM] 4.13 M/CMM 4.02 M/CMM 4.21 M/CMM *LOW* *LOW* (06/17/18 5:21 AM) (07/01/18 6:01 AM) (06/24/18 5:23 AM) Hgb [12.0-16.0 g/dL] 12.0 g/dL 11.8 g/dL 12.5 g/dL (07/01/18 6:01 AM) *LOW* (06/17/18 5:21 AM) (06/24/18 5:23 AM) Hct [36.0-48.0 %] 36.0 % 35.4 % 36.6 % (07/01/18 6:01 AM) *LOW* (06/17/18 5:21 AM) (06/24/18 5:23 AM) MCV [80.0-98.0 fL] 87.2 fL 88.0 fL 86.8 fL (07/01/18 6:01 AM) (06/24/18 5:23 AM) (06/17/18 5:21 AM) MCH [27.0-31.0 pg] 29.1 pg 29.2 pg 29.8 pg (07/01/18 6:01 AM) (06/24/18:23 AM) (06/17/18: AM) MCHC [32.0-36.0 g/dL] 33.4 g/dL 33.2 g/dL 34.3 g/dL (07/01/18 6:01 AM) (06/24/18 5:23 AM) (06/17/18 5:21 AM) RDW [11.5-14.5 %] 13.4 % 12.8 % 12.8 % (07/01/18 6:01 AM) (06/24/18:23 AM) (06/17/18 5:21 AM) MPV [7.4-10.4 fL] 9.3 fL 9.0 fL 8.9 fL (07/01/18 6: AM) (06/24/18:23 AM) (06/17/18 5:21 AM) Platelet [133-450 K/CMM] 229 K/CMM 240 K/CMM 306 K/CMM (07/01/18 6:01 AM) (06/24/18 5:23 AM) (06/17/18 5:21 AM) Segs [45.0-75.0 %] 56.5 % 58.4 % 53.7 % (07/01/18 6: AM) (06/24/18: AM) (06/17/18: AM) Lymphocytes [20.0-40.0 %] 31.1 % 28.2 % 33.1 % (07/01/18 6: AM) (06/24/18: AM) (06/17/18: AM) Monocytes [2.0-12.0 %] 9.3 % 11.3 % 9.3 % (07/01/18 6:01 AM) (06/24/18:23 AM) (06/17/18: AM) Eosinophils [0.0-4.0 %] 2.4 % 1.9 % 3.6 % (07/01/18 6:01 AM) (06/24/18 5:23 AM) (06/17/18 5:21 AM) Basophils [0.0-1.0 %] 0.7 % 0.2 % 0.3 % (07/01/18 6:01 AM) (06/24/18 5:23 AM) (06/17/18 5:21 AM) Neutrophils # [1.5-8.1 3.6 K/CMM 4.0 K/CMM 3.5 K/CMM K/CMM] (07/01/18 6:01 AM) (06/24/18 5:23 AM) (06/17/18 5:21 AM) Lymphocytes # [1.0-5.5 2.0 K/CMM 1.9 K/CMM 2.1 K/CMM K/CMM] (07/01/18 6:01 AM) (06/24/18 5:23 AM) (06/17/18 5:21 AM) Monocytes # [0.0-0.8 K/CMM] 0.6 K/CMM 0.8 K/CMM 0.6 K/CMM (07/01/18 6:01 AM) (06/24/18 5:23 AM) (06/17/18 5:21 AM) Eosinophils # [0.0-0.5 0.2 K/CMM 0.1 K/CMM 0.2 K/CMM K/CMM] (07/01/18 6:01 AM) (06/24/18 5:23 AM) (06/17/18 5:21 AM) Basophils # [0.0-0.2 K/CMM] 0.0 K/CMM 0.0 K/CMM 0.0 K/CMM (06/24/18 5:23 AM) (06/17/18 5:21 AM) (06/10/18 7:30 AM) Immunizations Given and Recorded Vaccine Date Status [...] No entered on: 11/27/18 Assessment and Plan Extracted from: Title: ESME Gonzalez Author: Arturo Keen NP Date: 9/4/18 Subjective Pt in bed , awake and alert, no new complaints. Spouse at BS, no new concerns expressed except he is waiting for dc orders and DME. Review of Systems HEENT: _ no EATON Respiratory: _ no cough/SOB Cardiovascular: _ no CP Gastrointestinal: _ no N/V/D Genitourinary: _ no dysuria Integumentary: _ no new breakdown reported Extremities: _ no edema Neurologic: _ no changes David/Lymph: _ no bleeding/easy bruising Endocrine: _ no changes Psychiatric: _ no mood changes Health Status Allergies: Allergic Reactions (Selected) Severity Not Documented Codeine- No reactions were documented. Medications Current medications: (Selected) Prescriptions Prescribed Voltaren Topical 1% topical gel: 2 gm, TOP, QID, 100 gm, 1 Refill(s) amLODIPine 10 mg oral tablet: 10 mg, 1 tab, PO, Daily, 30 tab, 1 Refill(s) aspirin 81 mg tablet, chewable: 81 mg, 1 tab, CHEW, Daily, 30 tab, 1 Refill(s) atorvastatin 80 mg oral tablet: 80 mg, 1 tab, PO, Bedtime, 30 tab, 1 Refill(s) baclofen 10 mg oral tablet: 10 mg, 1 tab, PO, Bedtime, 30 tab, 1 Refill(s) clopidogrel 75 mg oral tablet: 75 mg, 1 tab, PO, Daily, 30 tab, 1 Refill(s) linaclotide 290 mcg oral capsule: 290 microgram, 1 cap, PO, Daily, Pt's own med , 30 cap, 1 Refill(s) loratadine 10 mg oral tablet: 10 mg, 1 tab, PO, Daily, 30 tab, 1 Refill(s) metoprolol tartrate 50 mg oral tablet: 75 mg, 1.5 tab, PO, Q12H, 90 tab, 1 Refill(s) pantoprazole 40 mg oral enteric coated tablet: 40 mg, 1 tab, PO, Before Breakfast, 30 tab, 1 Refill(s) sertraline 50 mg oral tablet: 50 mg, 1 tab, PO, Daily, 30 tab, 1 Refill(s) trazodone 50 mg oral tablet: 25 mg, 0.5 tab, PO, Bedtime, 15 tab, 1 Refill(s), No qualifying data available . Problem list: All Problems Dysarthria / SNOMED CT 51556328 / Confirmed History of TIAs / SNOMED CT 658145371 / Confirmed HTN (hypertension) / SNOMED CT 6300490201 / Confirmed Hyperlipidemia / SNOMED CT 66988905 / Confirmed IBS (irritable bowel syndrome) / SNOMED CT 80551315 / Confirmed Stroke / SNOMED CT 461300693 / Confirmed, Active Problems (6) Dysarthria History of TIAs HTN (hypertension) Hyperlipidemia IBS (irritable bowel syndrome) Stroke Objective VS/Measurements Vital Signs (last 24 hrs) Last Charted Heart Rate Peripheral L 57bpm (JUL 02 07:08) Resp Rate 17 BRMIN (JUL 02:) SBP 138 mmHg (JUL 02:) DBP 77 mmHg (JUL 02:) General: No acute distress, Well developed, Well nourished. Eye: Normal conjunctiva. HENT: Normocephalic, Oral mucosa is moist. Neck: Supple. Respiratory: Lungs are clear to auscultation, Respirations are non-labored, Breath sounds are equal, Symmetrical chest wall expansion. Cardiovascular: Normal rate, Regular rhythm, No edema. Gastrointestinal: Soft, Non-tender, Non-distended, Normal bowel sounds. Mental status/ Cognition Alert. Speech and language intact. Psychiatric: Cooperative. Results Review Results review Labs (Last four charted values) WBC 6.4 (JUL 01) 6.8 (JUN 24) 6.4 (JUN 17) 7.6 (JUN 10) Hgb 12.0 (JUL 01) L 11.8 (JUN 24) 12.5 (JUN 17) 13.1 (JUN 10) Hct 36.0 (JUL 01) L 35.4 (JUN 24) 36.6 (JUN 17) 39.0 (JUN 10) Plt 229 (JUL 01) 240 (JUN 24) 306 (JUN 17) 274 (JUN 10) Na H 146 (JUL 01) 143 (JUN 24) 143 (JUN 17) 145 (JUN 12) K 3.7 (JUL 01) 4.0 (JUN 24) 4.0 (JUN 17) 4.0 (JUN 12) CO2 L 23 (JUL 01) 24 (JUN 24) L 22 (JUN 17) 27 (JUN 12) Cl H 110 (JUL 01) 107 (JUN 24) 107 (JUN 17) 108 (JUN 12) Cr 0.89 (JUL 01) 0.93 (JUN 24) 0.93 (JUN 17) 0.87 (JUN 12) BUN 16 (JUL 01) 19 (JUN 24) 17 (JUN 17) 17 (JUN 12) Glucose Random 82 (JUL 01) 83 (JUN 24) 84 (JUN 17) 88 (JUN 12) Mg L 1.7 (JUL 01) 2.0 (JUN 24) 2.0 (JUN 17) 2.2 (JUN 10) Phos 4.3 (JUL 01) H 4.8 (JUN 24) 4.3 (JUN 17) H 4.9 (JUN 10) Ca L 8.4 (JUL 01) 9.0 (JUN 24) 9.0 (JUN 17) 8.9 (JUN 12) Lab results 07/01/2018 06:01 Sodium Lvl 146 mEq/L HI Potassium Lvl 3.7 mEq/L Normal Chloride Lvl 110 mEq/L HI CO2 23 mEq/L LOW AGAP 16.7 mEq/L Normal Creatinine Lvl 0.89 mg/dL Normal eGFR 71 mL/min/1.73m2 NA BUN 16 mg/dL Normal B/C Ratio 18 Normal Glucose Lvl 82 mg/dL Normal Total Protein 6.1 g/dL LOW Albumin Lvl 2.8 g/dL LOW Globulin 3.3 g/dL Normal A/G Ratio 0.8 Normal Calcium Lvl 8.4 mg/dL LOW Phosphorus 4.3 mg/dL Normal Magnesium Lvl 1.7 mg/dL LOW ALANINE AMINOTRANSFERASE 32 unit/L Normal ASPARTATE TRANSAMINASE 23 unit/L Normal Alk Phos 68 unit/L Normal Bili Total 0.4 mg/dL Normal CHD Risk 2.51 LOW Chol 98 mg/dL Normal Trig 100 mg/dL Normal HDL 39 mg/dL LOW LDL (Calculated) 39 mg/dL Normal VLDL 20 NA WBC X 10x3 6.4 K/CMM Normal RBC X 10x6 4.13 M/CMM LOW Hgb 12.0 g/dL Normal Hct 36.0 % Normal MCV 87.2 fL Normal MCH 29.1 pg Normal MCHC 33.4 g/dL Normal RDW 13.4 % Normal MPV 9.3 fL Normal Platelet 229 K/CMM Normal Segs 56.5 % Normal Lymphocytes 31.1 % Normal Monocytes 9.3 % Normal Eosinophils 2.4 % Normal Basophils 0.7 % Normal Segs-Bands # 3.6 K/CMM Normal Lymphocytes # 2.0 K/CMM Normal Monocytes # 0.6 K/CMM Normal Eosinophils # 0.2 K/CMM Normal Impression and Plan Hypokalemia - 40 meq q4 x 2 doses - Apparently chronic per patient. Check in am and will likely start daily supplement. 06/11 - Well within normal limits at 4.0, cont to monitor 06/12 Eating bananas now. K is 4.0 (06-17). K is WNL (-) HTN- BP elevated-pt states it may be 2/2 anxiety- cont current meds, add prn Hydralazine - BP remains slightly elevated- increase Metoprolol to 50 mg q 12 w parameters (06-06) - BP elevated- Metoprolol increased 06-06, cont current orders (06-07) - BP and P noted- increase metoprolol to 75 mg q 12 on 06-08 - Occaisional elevations, cont to monitor. 06/15 - BP and P noted- cont current regimen (06-18). Consider changing to Coreg. Will d/w Dr Jeter (06-19) - d/w Dr Jeter- cont current meds (06-20). 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 Follow labs. Zoloft per PMR (06-06) Diastolic Dysfxn, Grade 1 - Torsemide 20. Toresemide dc (06-06) IBS/Constipation- Linaclotide. Add MOM x1 and prn Maalox and Zofran (06-06). Add Zegerid when available from (06-07). Add colace q day per pt rquest (06-08 ) - now on Protonix (06-17) GERD - DC Zegerid and start protonix 2/2 interaction of prilosec with plavix. - Add TUMS prn for possible indigestion 06/14 Insomnia- trazodone (8-9). Decrease to 25 mg (-). LLE (Quads) Spasticity- good response to lidocaine inj. (06-21). Phenol and Botox inj 06-27 DVT Prophylaxis- Lovenox [place] Shoulder Pain- baclofen and add voltaren gel (06-09). Injection soon (06-20) Discussed in pharmacy rounds 06-27 Addendum by Carlos Jeter MD on Pt seen and examined. Agree with the 07/03/2018 10:38 physical exam and plan documented by the PLANER OPERATOR. Extracted from: Title: PMR Discharge Summary Author: Elizabeth Isaacs MD Date: 07/02/18 DISCHARGE SUMMARY ADMISSION DATE: 06/04/2018 DISCHARGE DATE: 07/02/2018 ADMISSION DIAGNOSIS: Functional impairments due to CVA DISCHARGE DIAGNOSIS: Functional impairments due to CVA ATTENDING PHYSICIAN: Dr. Carlos Ramos MD CONSULTING PHYSICIANS: Consulting Physicians: Carlos Jeter MD Office: Service: Medicine Annabelle Friedman MD Office: Service: Physical Medicine/Rehabilitation BRIEF SUMMARY OF PRESENT ILLNESS: Ms. Rodriguez is a 57 year old female with a PMH of HTN an prior questionable history of TIA who had sudden onset of weakness in her left UE, dizziness, and slurred speech while playing with her grandchild cynthia on 05/25/18. She presented to [facility] where she was found to have elevated BP which was treated with IV medication. Initial CTH was negative, but she was transferred to [facility] for further manag ement of recurring symptoms. She presented to [facility] with LUE weakness and dysarthria. She was given tPA on 05/25/18 and started on Medrol Dosepak. TTE showed grade I diastolic dysfunction. CTA showed right cervical mild 20% stenosis of ICA. Patient now has functional decline in mobility and ADLs and will be admitted to [facility] for inpatient rehab to address her deficits. Patient was seen with at bedside. Currently denies pain or issues with sleep, swallow/appetite, bowel incontinence/constipation, and bladder incontinence/retention. She reports her last BM today was loose. Had a EATON this morning now resolved with tylenol. No issues with wounds. PMH/PSH: HTN Questionable previous TIA PAST SURGICAL HISTORY: Appendectomy Hysterectomy FAMILY HISTORY: HTN, multiple family members SOCIAL HISTORY: Lives with in a one story house in [place] with one step to enter. Stays at home. Denies tobacco, alcohol, and ilicit drug use FUNCTIONAL HISTORY: Patient was completely independent with all mobility and ADLs without the use of an assistive device prior to injury. HOSPITAL COURSE: Stroke: - Patient with right-sided ischemic stroke on 05/24 of unclear etiology. Exact location/vascular involvement not clear as CTH was negative and MRI not performed due to patient's inability to tolerat. Margo pect lacunar infarct in internal capsule as it appears to be pure motor stroke. Cognitively intact. - Continue ASA, Plavix, and Atorvastatin for secondary stroke prophylaxis. - Neurologically stable at this time, continue to monitor. 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 - Continue aggressive therapies with PT and OT to strengthen and optimize function. - Sertraline 50 mg daily added 06/06 for motor recovery and anxiety (see below). 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 Previously without strength in this hand. Spasticity: - Patient with increased tone in the LUE due to stroke. - Continue aggressive stretching, ROM exercises, bracing, splinting, casting, and positioning with PT and OT to prevent worsening of tone. - 06/21: Trial with Lidocaine Motor Block for left quadriceps spasticity. Positive response. - 06/24: Discussed phenol injection for left quadriceps with pt and . Agreed to move forward with phenol for treatment of spasticity in LLE. Will consider botulinum toxin injections in future for LUE, continue to monitor. - Phenol injections to the left femoral nerve to dampen down quadriceps tone performed 06/[address] Friedman. She will then need a subsurface augmentee operator evaluation to assess need for an AFO. Patient stated she felt some instability s/p phenol inj, PT continuing to work with patient on stability/balance. - Botox injections to LUE and left APFs on 06/[address] Briseida Maldonado. Mood/Adjustment disorder: - Patient with signficant anxiety and possibly depressed mood on admission. - Not on any meds for mood on admission other than PRN Clonazepam, but patient was not taking this. Avoid benzos moving forward. - Sertraline added for anxiety and depression (06/06). - Mood is doing well at this time Insomnia: - Trazodone 50 mg QHS added 06/06 & subsequently Trazaodone decreased to 25 mg QHS - 06/18: Sleep is improved, continue Trazadone 25 mg QHS Bowel function: - Premorbid history of IBS. Continue Linzess. Not on any other scheduled bowel meds on admission. - PRN Zofran ordered for nausea (06/06), PRN Milk of Mag available for constipation. - Having regular bowel movements now (06/18). Continue to monitor BMs closely on Linzess only. Bladder function: - Patient with reportedly normal bladder function. HTN: - Continue Amlodipine and Metoprolol. - Dr. Jeter of IM following. Seasonal allergies: - Continue Loratadine (note that patient does not want Zyrtec, makes her too drowsy). Pain: - Occasional painful spasms/spasticity as noted above. - 06/17: Change from prn to scheduled Baclofen 10 mg at q8PM - Continue PRN Tylenol. Prophylaxis: - DVT: Admitted on Lovenox 40 mg daily. - GI: Takes Zegerid at home for GERD but changed to Protonix due to trial that showed lowered efficacy of Plavix while on Zegerid. Follow ups: 1. PCP 2. Neurology 3. [facility] DISCHARGE FIM SCORES: PT Current Status PT Treatment Recommendations PT Treatment Recommendations: Ms Fritz Rodriguez is a 57 year old female who presents in inpatient rehabilitation following hypertensive stroke 05/25/18. 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 (spasticity angle & gt;50 degrees)- Assistance needs for bed mobility and level surface transfers ( minimum)- Anxiety related to inability to provide care for grandson and parents (previous caregiver role) The patient would benefit from intensive rehabilitation services to progress to the modified independent level for level surface transfers, ambulate household distances with minimum assistance, manage spasticity in conj unction with the medical team for normalized movement, and complete family training for safe and efficacious discharge to the home setting Performed: 06/15 12:41 Mobility Transfer Bed to and From Chair: Minimal contact assistance Performed: 11:50 Ambulation Level Surfaces Ambulation Device: Walking stick Performed: 07/01/18 11:50 Ambulation Distance: 750 ft Performed: 07/01/18 11:50 Ambulation Uneven Surfaces Locomotion Walk: Min A - 4 Performed: 07/01/18 11:50 Stairs Device: Right side rail up the stairs Performed: 07/01/18 11:50 Number of Stairs Performed: 1 Performed: 07/01/18 11:50 Locomotion Stair: Tot A - 1 Performed: 07/01/18 11:50 Bed,Chair,Wheelchair: Supvn/Setup - 5 Performed: 07/01/18 11:50 Wheelchair Mobility Level Surfaces Wheelchair Mobility Level Distance: 150 ft Performed: 07/01/18 11:50 OT Current Status ADL Eating: Modified I - 6 Performed: 07/01/18 11:18 Grooming: Modified I - 6 Performed: 07/01/18 11:18 Bathing: Supvn/Setup - 5 Performed: 07/01/18 11:18 Upper Extremity Dressing: Modified I - 6 Performed: 07/01/18 11:18 Lower Extremity Dressing: Modified I - 6 Performed: 07/01/18 11:18 Toileting: Min A - 4 Performed: 07/02/18 09:46 Toilet Transfer: Min A - 4 Performed: 07/01/18 11:50 Shower Transfer: Min A - 4 Performed: 07/01/18 11:50 Vision Vision Status: WFL Performed: 07/01/18 11:18 ENTERPRISE ACCOUNT EXECUTIVE Current Status Severity Level Comprehension: Complete I - 7 Performed: 07/01/18 11:18 Comprehension Mode: Auditory Performed: 07/01/18 11:18 Expression: Complete I - 7 Performed: 07/01/18 11:18 Expression Mode: Vocal Performed: 07/01/18 11:18 Memory: Complete I - 7 Performed: 07/01/18 11:18 Problem Solving: Complete I - 7 Performed: 07/01/18 11:18 Social Interaction: Complete I - 7 Performed: 07/01/18 11:18 PROCEDURES PERFORMED DURING ADMISSION: none PHYSICAL EXAM (at time of discharge): Physical Exam: General: Sitting in WC in NAD at 3rd floor gym, appears well nourished HEENT: NC/AT, MMM CV: well perfused in extremities Respiratory: Non labored respirations on room air, symmetric chest expansion with respirations MSK: No peripheral edema in LEs. No gross joint deformities. Neurologic: Awake, alert, and fully oriented. Speech is fluent. Comprehension is fully intact. Left spastic hemiparesis stable. Has more activation in the left hand. Psychiatric: Calm and cooperative. Affect full. DISCHARGE MEDICATIONS: Discharge Medications trazodone 50 mg oral tablet :25 mg, 0.5 tab, PO, Bedtime, 15 tab, 1 Refill(s) Ordered by: Carlos Ramos MD 06/28/2018 15:43 sertraline 50 mg oral tablet :50 mg, 1 tab, PO, Daily, 30 tab, 1 Refill(s) Ordered by: Carlos Ramos MD 06/28/2018 15:42 pantoprazole 40 mg oral enteric coated tablet :40 mg, 1 tab, PO, Before Breakfast, 30 tab, 1 Refill(s) Ordered by: Carlos Ramos MD 06/28/2018 15:42 loratadine 10 mg oral tablet :10 mg, 1 tab, PO, Daily, 30 tab, 1 Refill(s) Ordered by: Carlos Ramos MD 06/28/2018 15:42 Voltaren Topical 1% topical gel :2 gm, TOP, QID, 100 gm, 1 Refill(s) Ordered by: Carlos Ramos MD 06/28/2018 15:42 metoprolol tartrate 50 mg oral tablet :75 mg, 1.5 tab, PO, Q12H, 90 tab, 1 Refill(s) Ordered by: Carlos Ramos MD 06/28/2018 15:42 linaclotide 290 mcg oral capsule :290 microgram, 1 cap, PO, Daily, Pt's own med , 30 cap, 1 Refill(s) Ordered by: Carlos Ramos MD 06/28/2018 15:40 clopidogrel 75 mg oral tablet :75 mg, 1 tab, PO, Daily, 30 tab, 1 Refill(s) Ordered by: Carlos Ramos MD 06/28/2018 15:40 baclofen 10 mg oral tablet :10 mg, 1 tab, PO, Bedtime, 30 tab, 1 Refill(s) Ordered by: Carlos Ramos MD 06/28/2018 15:40 atorvastatin 80 mg oral tablet :80 mg, 1 tab, PO, Bedtime, 30 tab, 1 Refill(s) Ordered by: Carlos Ramos MD - 06/28/2018 15:40 aspirin 81 mg tablet, chewable :81 mg, 1 tab, CHEW, Daily, 30 tab, 1 Refill(s) Ordered by: Carlos Ramos MD - 06/28/2018 15:40 amLODIPine 10 mg oral tablet :10 mg, 1 tab, PO, Daily, 30 tab, 1 Refill(s) Ordered by: Carlos Ramos MD - 06/28/2018 15:40 CONDITION OF PATIENT ON DISCHARGE: stable DISPOSITION/INSTRUCTIONS/FOLLOW UP: Discharge to [facility] Discharge to: [facility] in [place] No follow up information documented Activity: activity as tolerated with assistance with ambulance Diet: Diet Adult Regular -- 06/04/18 19:43:00 CDT Follow up Appointments: The discharge plan was reviewed and discussed with the patient/family and appropriate education and counseling was provided. They were given the opportunity to ask any questions which were answered to the best of my knowledge. Issues to address during [facility] follow up visit: spasticity Addendum by Carlos Ramos MD on Attending Attestation: 07/03/2018 07:14 I performed a history and physical examination of the patient with the fellow, Dr. Isaacs. I reviewed the note and agree with the plan as documented. Carlos Ramos MD [id number] Extracted from: Title: General Rehab Admission H&P * Author: Arturo Keen NP Date: Basic Information Visit type: New patient evaluation. Provider information/ cc: Referring: Carlos Ramos MD, Consulting: Carlos Jeter MD. Accompanied by: Spouse. Source of history: Self, Spouse, med records. History limitation: None. Chief Complaint Consulted for medical management of this 57 yo female w recent ischemic CVA. History of Present Illness Ms. Rodriguez is a 57 year old female with a PMH of HTN an prior questionable history of TIA who had sudden onset of weakness in her left UE, dizziness, and slurred speech while playing with her grandchild cynthia on 05/25/18. She presented to [facility] ER where she was found to have elevated BP which was treated with IV medication. Initial CTH was negative, but she was transferred to [facility] for further manag ement of recurring symptoms. She presented to [facility] with LUE weakness and dysarthria. She was given tPA on 05/25/18 and started on Medrol Dosepak. TTE showed grade I diastolic dysfunction. CTA showed right cervical mild 20% stenosis of ICA. Patient now has functional decline in mobility and ADLs and will be admitted to [facility] for inpatient rehab to address her deficits. Patient was seen with at bedside. Currently denies pain or issues with sleep, swallow/appetite, bowel incontinence/constipation, and bladder incontinence/retention. She reports her last BM today was loose. Had a EATON this morning now resolved with tylenol. No issues with wounds. Review of Systems Constitutional: Negative. Pain assessment: Self-reports no pain. Eye: Negative. Ear/Nose/Mouth/Throat: Negative. Respiratory: Negative. Cardiovascular: Negative except as documented in history of present illness. Gastrointestinal: Negative except as documented in history of present illness. Genitourinary: Negative. Gynecologic: Negative. Hematology/Lymphatics: Negative. Endocrine: Negative. Musculoskeletal: Negative except as documented in history of present illness. Integumentary: Negative. Neurologic: Negative except as documented in history of present illness. Psychiatric Health Status Allergies: Allergic Reactions (Selected) Severity Not Documented Codeine- No reactions were documented. Medications Current medications: (Selected) Inpatient Medications Ordered Lopressor: 25 mg, 1 tab, PO, Q12H Plavix: 75 mg, 1 tab, PO, Daily Saline Flush 0.9%: 10 mL, IVP, PRN, PRN: Line Flush acetaminophen: 650 mg, 2 tab, PO, Q4H, PRN: Pain 1-3/Temp > 100.4 F amLODIPine: 10 mg, 1 tab, PO, Daily aspirin: 81 mg, 1 tab, CHEW, Daily atorvastatin: 80 mg, 2 tab, PO, Bedtime bisacodyl: 10 mg, 1 supp, NM, Bedtime, PRN: Constipation enoxaparin: 40 mg, 0.4 mL, SUB-Q, Daily famotidine: 20 mg, 1 tab, PO, BID levETIRAcetam: 1,500 mg, IV, PRN, PRN: Seizure linaclotide: 290 microgram, 2 cap, PO, Daily midazolam: 5 mg, 1 mL, IM, PRN, PRN: Seizure torsemide: 20 mg, 1 tab, PO, Daily Suspended baclofen: 5 mg, 0.5 tab, PO, TID Documented Medications Suspended Plavix: 75 mg, PO, Daily, 0 Refill(s) amLODIPine: 10 mg, PO, Daily, Hold if SBP < 10, DBP < 50 or patient is on pressor, 0 Refill(s) aspirin: 81 mg, CHEW, Daily, 0 Refill(s) atorvastatin: 80 mg, PO, Bedtime, 0 Refill(s) baclofen: 5 mg, PO, TID, 0 Refill(s) clonazePAM: 0.25 mg, PO, BID, 0 Refill(s) docusate-senna 50 mg-8.6 mg oral tablet: 1 tab, PO, BID, 0 Refill(s) enoxaparin: 40 mg, SUB-Q, Daily, 0 Refill(s) famotidine: 20 mg, 1 tab, PO, BID, for 30 day, 60 tab, 0 Refill(s) linaclotide: 290 microgram, PO, Daily, Pt's own med, 0 Refill(s) metoprolol 25 mg oral tablet, extended release: 25 mg, 1 tab, PO, BID, Hold if SBP <100, DBP <50 or HR <50 bpm, or pt ricarda pressor or inotrope, 0 Refill(s) torsemide: 20 mg, PO, Daily, 20 tab, 0 Refill(s). Problem list: All Problems Dysarthria / SNOMED CT 38421583 / Confirmed History of TIAs / SNOMED CT 620011502 / Confirmed HTN (hypertension) / SNOMED CT 0148817751 / Confirmed Hyperlipidemia / SNOMED CT 17579802 / Confirmed IBS (irritable bowel syndrome) / SNOMED CT 92365470 / Confirmed Stroke / SNOMED CT 522829071 / Confirmed, Active Problems (6) Dysarthria History of TIAs HTN (hypertension) Hyperlipidemia IBS (irritable bowel syndrome) Stroke Histories Past Medical History: No active or resolved past medical history items have been selected or recorded. Family History: Hypertension Mother Sister Procedure history: No active procedure history items have been selected or recorded. Social History Social & Psychosocial Habits Tobacco 06/04/2018 Use: Never smoker Started at age: 0.0 Years Stopped at age: 1 Years Ready to change: No Concerns about tobacco use in household: No Exposure to Tobacco Smoke None Cigarette Smoking Last 365 Days No Reg Smoking Cessation Counseling No . Physical Examination VS/Measurements Vital Signs (last 24 hrs) Last Charted Temp Tympanic 98.2 DegF (JUN 04 21:00) Heart Rate Peripheral 87 bpm (JUN 05 12:41) Resp Rate 18 BRMIN (JUN 05 07:30) SBP H 161mmHg (JUN 05 12:41) DBP H 93mmHg (JUN 05 12:41) Weight 75.256 kg (JUN 04 19:35) Height 165.1 cm (JUN 04 19:35) BMI 27.61 (JUN 04 19:35) General: Alert and oriented, No acute distress, Well developed, Well nourished. Eye: Normal conjunctiva. HENT: Normocephalic, Oral mucosa is moist. Neck: Supple. Respiratory: Lungs are clear to auscultation, Respirations are non-labored, Breath sounds are equal, Symmetrical chest wall expansion. Cardiovascular: Normal rate, Regular rhythm, No edema. Gastrointestinal: Soft, Non-tender, Non-distended, Normal bowel sounds. Mental status/ Cognition Alert. Oriented x 3. Speech and language intact. Psychiatric: Cooperative. Review / Management Results review: Labs (Last four charted values) WBC 10.1 (JUN 05) Hgb 14.0 (JUN 05) 13.1 (MAY 30) Hct 43.3 (JUN 05) Plt 301 (JUN 05) Na 141 (JUN 05) K 3.9 (JUN 05) CO2 24 (JUN 05) Cl 106 (JUN 05) Cr 0.80 (JUN 05) BUN 14 (JUN 05) Glucose Random 94 (JUN 05) Mg 2.1 (JUN 05) Phos 3.5 (JUN 05) Ca 9.2 (JUN 05) . Impression and Plan HTN- BP elevated-pt states it may be 2/2 anxiety- cont current meds, add prn Hydralazine CVA- PT/OT/[employer]OUNT EXECUTIVE, asa, statin, plavix. Follow labs Diastolic Dysfxn- Torsemide IBS/Constipation- Linaclotide DVT Prophylaxis- Lovenox GI proph- Pepcid Addendum by Carlos Jeter MD on Pt seen and examined. Agree with the 06/06/2018 12:56 physical exam and plan documented by the PLANER OPERATOR. Extracted from: Title: PMR History and Physical Author: Andrea uGo MD Date: 06/04/18 PM&R History and Physical DATE OF ADMISSION: 06/04/18 ADMITTING PHYSICIAN: Dr. Ramos REASON FOR ADMISSION: Functional impairments due to CVA HISTORY OF PRESENT ILLNESS: Ms. Rodriguez is a 57 year old female with a PMH of HTN an prior questionable history of TIA who had sudden onset of weakness in her left UE, dizziness, and slurred speech while playing with her grandchild cynthia on 05/25/18. She presented to [facility] where she was found to have elevated BP which was treated with IV medication. Initial CTH was negative, but she was transferred to [facility] for further manag ement of recurring symptoms. She presented to [facility] with LUE weakness and dysarthria. She was given tPA on 05/25/18 and started on Medrol Dosepak. TTE showed grade I diastolic dysfunction. CTA showed right cervical mild 20% stenosis of ICA. Patient now has functional decline in mobility and ADLs and will be admitted to [facility] for inpatient rehab to address her deficits. Patient was seen with at bedside. Currently denies pain or issues with sleep, swallow/appetite, bowel incontinence/constipation, and bladder incontinence/retention. She reports her last BM today was loose. Had a EATON this morning now resolved with tylenol. No issues with wounds. PMH/PSH: HTN Questionable previous TIA PAST SURGICAL HISTORY: Appendectomy Hysterectomy FAMILY HISTORY: HTN, multiple family members SOCIAL HISTORY: Lives with in a one story house in [place] with one step to enter. Stays at home. Denies tobacco, alcohol, and ilicit drug use FUNCTIONAL HISTORY: Patient was completely independent with all mobility and ADLs without the use of an assistive device prior to injury. CURRENT FUNCTION: Preadm Current Functional Status Bladder : MAX A Bowel : MAX A Rolling-Left to Right : Total A Rolling-Right to Left : CGA Toilet Transfer : MAX A Supine to Sit : MAX A Bathing : MAX A Bed Mobility : MIN A Bed Wheelchair Transfer : MAX A Eating : Setup, Distant S Grooming : Setup Locomotion Walk : MAX A Locomotion Wheelchair : Does not occur Lower Body Bathing : Total A Lower Extremity Dressing : Total A Sit to Stand : MAX A Tub, Shower Transfer : Does not occur Upper Body Bathing : MOD A Upper Extremity Dressing : MOD A ALLERGIES: NKDA MEDICATIONS: Scheduled Meds (10): 06/05/18 8:30 amLODIPine 10 mg PO Daily 06/05/18 8:30 aspirin 81 mg CHEW Daily 06/04/18 21:00 atorvastatin 80 mg PO Bedtime 06/04/18 21:00 baclofen 5 mg PO TID 06/04/18 21:00 clonazePAM 0.25 mg PO BID 06/05/18 8:30 clopidogrel (Plavix) 75 mg PO Daily 06/05/18 8:30 enoxaparin 40 mg SUB-Q Daily 06/04/18 21:00 famotidine 20 mg PO BID 06/04/18 21:00 metoprolol (Lopressor) 25 mg PO Q12H 06/05/18 8:30 torsemide 20 mg PO Daily Unscheduled Meds: None PRN Meds (5): 06/04/18 19:43 acetaminophen 650 mg PO Q4H 06/04/18 19:43 bisacodyl 10 mg NM Bedtime 06/04/18 19:43 levETIRAcetam 1,500 mg IV PRN 06/04/18 19:43 midazolam 5 mg IM PRN 06/04/18 19:43 sodium chloride (Saline Flush 0.9%) 10 mL IVP REVIEW OF SYSTEMS: Constitutional: Negative fever, chills, malaise Eyes: Negative vision changes ENT: Negative sore throat, dysphagia CV: Negative CP, palpitations Respiratory: Negative SOB, cough, wheezing GI: Negative abdominal discomfort, bloating : Negative genital pain/discomfort Skin: Negative ulcers, wounds MSK: Negative numbness, tingling. Neurologic: Negative EATON, dizziness, lightheadedness Psychiatric: Negative sadness, tearfulness. PHYSICAL EXAMINATION: Vitals: General: Lying in bed in NAD HEENT: NC/AT, PERRLA, EOMI, MMM CV: RRR, no m/r/g Respiratory: no respiratory distress on RA, CTAB GI: Abdomen soft, nondistended, nontender to palpation, +BS Skin: No rashes or wounds noted. MSK: No c/c/e. Full PROM throughout all 4 limbs. Neurologic: Mental status: Awake, alert, oriented to person, place, and time. Speech is fluent with intact repetition, naming, and comprehension. Follows one step commands without difficulty. No impulsivity, distractibility, or inattention noted. CN 2-12 intact. Reflexes: 2+ on bilateral biceps, triceps, BR, patella; no clonus Sensation: light touch grossly intact on bilateral face, UE, and LE Manual muscle testin/5 on right EF, EE, WE, FF, HF, KE, DF, PF; 0/5 on left EF, EE, WE, FF; 3/5 on left HF, 4/5 on left KE, 0/5 on left DF and PF Tone: MAS 1+ on left EF; MAS 1 on left KE Psychiatric: Calm and cooperative. Affect full. 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 Impairments: Stroke Cognitive deficits Dysarthria Spasticity Dysphagia Neurogenic bladder Neurogenic bowel Pain Activity limitations: Decreased mobility Decreased transfers Decreased speech Decreased ADLs Participation restrictions: Driving Return to work/school Taking care of the home Recreation and leisure activities Baptism activities Community reintegration PLAN: Rehabilitation: - The patient will require oversight by a rehabilitation physician and 24 hour rehabilitation nursing for management of bowel, bladder, skin integrity, medication management, safety measures, and preven ting risk factors and complications. The patient will require a minimum of 3 hours of therapy a day for 5-7 days a week throughout the hospitalization, including at least the followin-2 hours Physic al Therapy, 1-2 hours Occupational Therapy and 1 hour Speech-Language pathology , Neuropsychology, Exercise and Multidisciplinary Groups. These disciplines will be needed in order to improve the patient' s impairments in mobility, transfers, activities of daily living, swallowing and cognition and evaluation of durable medical equipment if needed at discharge. Social Work and Case Management will be con sulted to assist with discharge planning and family coping strategies. Stroke: - Patient with ischemic stroke due to HTN on 05/24/18. - Continue ASA, plavix, BP control, and lipitor for secondary stroke prophylaxis. - Will monitor neurologic status closely. Spasticity: - Patient with increased tone in the left UE and LE - PT and OT to initiate aggressive stretching, ROM exercises, bracing, splinting, casting and positioning as appropriate. - If the tone fails to improve with the above conservative measures, consider further intervention with botulinum toxin or phenol injections. 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 - This will be a major functional limitation for the patient. - Will inititate and aggressive rehabilitation program with PT and OT to work on strengthening and overall function. Dysphagia/Nutrition: - Patient currently on regular/thin liquid. - ENTER[employer] ACCOUNT EXECUTIVE to improve swallow function. - Ivf Embryologist consulted. Will check Prealbumin. Constipation: - Patient on docusate and senna to facilitate regular BMs. Continue this regimen. - Will order PRN suppository. - Monitor BMs closely. Neurogenic bladder: - Patient with bladder dysfunction as a result of stroke. - Continue timed voids, monitor PVRs, and cath for PVR greater than 200 mL. Pain: - PRN tylenol for now - Continue to monitor pain closely. HTN: - Continue amlodipine and metoprolol - Monitor BP and adjust as needed Prophylaxis: - DVT: Continue lovenox. Mobilize as tolerated. - GI: Continue famotidine. Dispo: - Discharge disposition to be determined. Will discuss at team rounds. - Prognosis is good. - ELOS is 2-4 weeks. - Follow ups: 1. Primary care physician 2. PM&R outpt clinic 3. Neurology Addendum by Carlos Ramos MD on PMR ATTENDING/POST-ADMISSION PHYSICIAN EVALUATION 06/05/2018 15:40 I saw, examined and discussed the patient with the resident, Dr. Guo and agree with the documentation with the following additions: I clarified the patient's medications with her. Clonazepam was intended to be PRN only. After discussing with patient, we have agreed to stop Clonazepam altogether as this medication could interfere wit h stroke recovery. She is experiencing some anxiety issues and adjustment. We will start Sertraline for mood as well as motor recovery. Baclofen was added yesterday due to painful spasms in the LUE and LLE. Continue Bacolfen for now but would prefer to stop this medication if possible due to its sedating effects. She will likely benefit from chemodenervation injections at some point, but we will start with PT and OT interventions. There are no medical or functional changes since the preadmission assessment. The patient has ongoing medical and functional impairments that can safely be met in the IRF setting, and these needs cannot be adequately addressed in a lower level of care, as the patient requires 24hr nursing and daily medical management. The patient also has comorbidities which also necessitate close medical supervision, specialized rehabilitation nursing, and skilled therapy intervention. The patient is able to participate in and benefit from an acute inpatient rehabilitation program, with anticipated measurable gains as a result of this program. There are no obvious barriers to disposition to the community following the IRF admission. - CBC, BMP, LFTs, HbA1c, and UA ordered. A1c 6.0 and AST 40. Otherwise labs all unremarkable. - CXR and KUB obtained, both unremarkable. - EKG ordered as many medications that we would consider to facilitate recovery can cause conduction abnormalities. - Dr. Jeter of consulted to help with managment of HTN, HLD, IBS and other medical comorbidities. Individualized Plan of Care: Patient will require oversight by a rehabilitation physician and 24 hour rehabilitation nursing for management of bowel, bladder, skin integrity, medication management, safety measures, and preventing r isk factors and complications. Patient will require a minimum of 3 hours of therapy a day for 5-7 days a week throughout the hospitalization, including at least the followin-2 hours Physical Therapy , 1-2 hours Occupational Therapy and 1 hour Speech-Language pathology, Neuropsychology, Exercise and Multidisciplinary Groups. These disciplines will be needed in order to improve the patient's impairme nts in mobility, transfers, activities of daily living, swallowing and cognition and evaluation of durable medical equipment if needed at discharge. Social Work and Case Management will be consulted to assist with discharge planning and family coping strategies. Prognosis: Good Estimated Length of Stay: 3-4 weeks Discharge Disposition: Likely to home Date of service: 06/05/18 Carlos Ramos MD [id number]
--- OUTSIDE RECORDS SUMMARY | 2019-05-05 12:23 | XMS REPORT ---
:1960 [facility] [address] [place] [address] Care Team Providers Name Role Phone HANH BOOTH Unavailable Unavailable Problems This patient has no known problems. Allergies, Adverse Reactions, Alerts This patient has no known allergies or adverse reactions. Medications This patient has no known medications. Results Test Description Test Time Test Comments Text Results Atomic Results Result Comments PHOSPHORUS 2018-05-28 06:42:00 Test Item Value Reference Range Comments PHOSPHORUS (BEAKER) (test omkg=253) 4.2 mg/dL 2.3-4.7 [id number] 06:42:00 Test Item Value Reference Range Comments MAGNESIUM (BEAKER) (test kixm=564) 2.2 mg/dL 1.6-2.6 COMPREHENSIVE METABOLIC [id number] 06:42:00 Test Item Value Reference Range Comments TOTAL PROTEIN (BEAKER) 6.4 gm/dL 6.0-8.3 (test ychm=445) ALBUMIN (BEAKER) (test 3.4 g/dL 3.5-5.0 ngzq=0850) ALKALINE PHOSPHATASE 54 U/L 40-150 (BEAKER) (test msxk=606) BILIRUBIN TOTAL (BEAKER) 0.3 mg/dL 0.2-1.2 (test cool=310) SODIUM (BEAKER) (test 138 meq/L 136-145 nsoy=185) POTASSIUM (BEAKER) (test 4.2 meq/L 3.5-5.1 kgqj=193) CHLORIDE (BEAKER) (test 108 meq/L 98-107 wuhc=981) CO2 (BEAKER) (test 20 meq/L 22-29 zdxn=840) BLOOD UREA NITROGEN 17 mg/dL 7-21 (BEAKER) (test zise=980) CREATININE (BEAKER) (test 0.88 mg/dL 0.57-1.25 cont=663) GLUCOSE RANDOM (BEAKER) 115 mg/dL 70-105 (test iyfn=316) CALCIUM (BEAKER) (test 9.3 mg/dL 8.4-10.2 qpll=719) AST (SGOT) (BEAKER) (test 15 U/L 5-34 ilqz=553) ALT (SGPT) (BEAKER) (test 12 U/L 6-55 pzur=396) EGFR (BEAKER) (test 66 mL/min/1.73 sq m ESTIMATED GFR IS NOT zmgt=6418) ACCURATE CREATININE CLEARANCE IN PREDICTING GLOMERULAR FILTRATION RATE. ESTIMATED GFR IS NOT APPLICABLE FOR DIALYSIS PATIENTS. CBC W/PLT COUNT & AUTO [id number] 06:23:00 Test Item Value Reference Range Comments WHITE BLOOD CELL COUNT (BEAKER) (test zkpr=272) 12.9 K/ L 3.5-10.5 RED BLOOD CELL COUNT (BEAKER) (test ukwk=359) 4.66 M/ L 3.93-5.22 HEMOGLOBIN (BEAKER) (test idjx=867) 13.1 GM/DL 11.2-15.7 HEMATOCRIT (BEAKER) (test lphr=808) 41.3 % 34.1-44.9 MEAN CORPUSCULAR VOLUME (BEAKER) (test fphi=907) 88.6 fL 79.4-94.8 MEAN CORPUSCULAR HEMOGLOBIN (BEAKER) (test 28.1 pg 25.6-32.2 jbyc=240) MEAN CORPUSCULAR HEMOGLOBIN CONC (BEAKER) (test 31.7 GM/DL 32.2-35.5 bvac=372) RED CELL DISTRIBUTION WIDTH (BEAKER) (test 13.6 % 11.7-14.4 zmts=260) PLATELET COUNT (BEAKER) (test peda=780) 309 K/CU MM 150-450 MEAN PLATELET VOLUME (BEAKER) (test tfrd=332) 9.6 fL 9.4-12.3 NUCLEATED RED BLOOD CELLS (BEAKER) (test 0 /100 WBC 0-0 stpp=650) NEUTROPHILS RELATIVE PERCENT (BEAKER) (test 66 % qqjx=944) LYMPHOCYTES RELATIVE PERCENT (BEAKER) (test 20 % baif=571) MONOCYTES RELATIVE PERCENT (BEAKER) (test 8 % kase=353) EOSINOPHILS RELATIVE PERCENT (BEAKER) (test 3 % awxm=666) BASOPHILS RELATIVE PERCENT (BEAKER) (test 1 % cjdv=683) NEUTROPHILS ABSOLUTE COUNT (BEAKER) (test 8.58 K/ L 1.56-6.13 zudj=170) LYMPHOCYTES ABSOLUTE COUNT (BEAKER) (test 2.64 K/ L 1.18-3.74 yako=108) MONOCYTES ABSOLUTE COUNT (BEAKER) (test 1.03 K/ L 0.24-0.36 wknx=505) EOSINOPHILS ABSOLUTE COUNT (BEAKER) (test 0.41 K/ L 0.04-0.36 jbhh=992) BASOPHILS ABSOLUTE COUNT (BEAKER) (test 0.09 K/ L 0.01-0.08 edaz=060) IMMATURE GRANULOCYTES-RELATIVE PERCENT (BEAKER) 1 % 0-1 (test ohpc=3146) URINALYSIS WITH MICROSCOPIC IF [id number] 16:17:00 Test Item Value Reference Range Comments COLOR (BEAKER) (test pdjr=881) Yellow CLARITY (BEAKER) (test emwc=636) Hazy SPECIFIC GRAVITY UA (BEAKER) (test zuym=325) 1.013 1.001-1.035 PH UA (BEAKER) (test vqgm=848) 6.5 5.0-8.0 PROTEIN UA (BEAKER) (test izho=428) Negative Negative GLUCOSE UA (BEAKER) (test oooj=816) Negative Negative KETONES UA (BEAKER) (test tcxy=361) Negative Negative BILIRUBIN UA (BEAKER) (test edvh=580) Negative Negative BLOOD UA (BEAKER) (test xmdl=728) Negative Negative NITRITE UA (BEAKER) (test uvxw=526) Negative Negative LEUKOCYTE ESTERASE UA (BEAKER) (test igrx=950) Negative Negative UROBILINOGEN UA (BEAKER) (test wwvf=383) 0.2 mg/dL 0.2-1.0 SOURCE(BEAKER) (test xfzb=4023) [id number] 11:04:00 Test Item Value Reference Range Comments PHOSPHORUS (BEAKER) (test dqdq=383) 3.2 mg/dL 2.3-4.7 [id number] 11:04:00 Test Item Value Reference Range Comments MAGNESIUM (BEAKER) (test fvbm=527) 2.2 mg/dL 1.6-2.6 BASIC METABOLIC [id number] 11:04:00 Test Item Value Reference Range Comments SODIUM (BEAKER) (test 136 meq/L 136-145 havg=307) POTASSIUM (BEAKER) (test 4.0 meq/L 3.5-5.1 idwk=765) CHLORIDE (BEAKER) (test 107 meq/L 98-107 byde=029) CO2 (BEAKER) (test 21 meq/L 22-29 sujb=402) BLOOD UREA NITROGEN 17 mg/dL 7-21 (BEAKER) (test dwst=598) CREATININE (BEAKER) (test 0.92 mg/dL 0.57-1.25 brpi=418) GLUCOSE RANDOM (BEAKER) 121 mg/dL 70-105 (test qmzd=276) CALCIUM (BEAKER) (test 9.2 mg/dL 8.4-10.2 ahdo=840) EGFR (BEAKER) (test 63 mL/min/1.73 sq m ESTIMATED GFR IS NOT sdsr=1770) ACCURATE CREATININE CLEARANCE IN PREDICTING GLOMERULAR FILTRATION RATE. ESTIMATED GFR IS NOT APPLICABLE FOR DIALYSIS PATIENTS. CBC W/PLT COUNT & AUTO [id number] 06:04:00 Test Item Value Reference Range Comments WHITE BLOOD CELL COUNT (BEAKER) (test lkzq=012) 16.4 K/ L 3.5-10.5 RED BLOOD CELL COUNT (BEAKER) (test lusb=003) 4.66 M/ L 3.93-5.22 HEMOGLOBIN (BEAKER) (test wcke=851) 13.4 GM/DL 11.2-15.7 HEMATOCRIT (BEAKER) (test exlr=637) 40.6 % 34.1-44.9 MEAN CORPUSCULAR VOLUME (BEAKER) (test kzil=656) 87.1 fL 79.4-94.8 MEAN CORPUSCULAR HEMOGLOBIN (BEAKER) (test 28.8 pg 25.6-32.2 nqjw=093) MEAN CORPUSCULAR HEMOGLOBIN CONC (BEAKER) (test 33.0 GM/DL 32.2-35.5 pivd=488) RED CELL DISTRIBUTION WIDTH (BEAKER) (test 13.6 % 11.7-14.4 mjdp=909) PLATELET COUNT (BEAKER) (test bolr=639) 354 K/CU MM 150-450 MEAN PLATELET VOLUME (BEAKER) (test wfog=996) 10.0 fL 9.4-12.3 NUCLEATED RED BLOOD CELLS (BEAKER) (test 0 /100 WBC 0-0 eeqw=485) NEUTROPHILS RELATIVE PERCENT (BEAKER) (test 71 % hygn=434) LYMPHOCYTES RELATIVE PERCENT (BEAKER) (test 19 % ujhw=691) MONOCYTES RELATIVE PERCENT (BEAKER) (test 7 % txia=521) EOSINOPHILS RELATIVE PERCENT (BEAKER) (test 1 % nsfw=146) BASOPHILS RELATIVE PERCENT (BEAKER) (test 1 % gsnk=642) NEUTROPHILS ABSOLUTE COUNT (BEAKER) (test 11.68 K/ L 1.56-6.13 znbe=129) LYMPHOCYTES ABSOLUTE COUNT (BEAKER) (test 3.03 K/ L 1.18-3.74 dskj=862) MONOCYTES ABSOLUTE COUNT (BEAKER) (test 1.08 K/ L 0.24-0.36 xxzy=493) EOSINOPHILS ABSOLUTE COUNT (BEAKER) (test 0.22 K/ L 0.04-0.36 gcyj=045) BASOPHILS ABSOLUTE COUNT (BEAKER) (test 0.11 K/ L 0.01-0.08 izri=498) IMMATURE GRANULOCYTES-RELATIVE PERCENT (BEAKER) 2 % 0-1 (test qusr=9980) CT, CTANG [id number] 18:11:00FINAL REPORT CTA head and neck with contrast INDICATION: Stroke post tPA TECHNIQUE: Axial intravenous contrast enhanced CTA images of the head and neck were obtained. Multiplanarand 3-D volume rendered reconstruction images were generated on a separate workstation for better delineation of the vascular anatomy. This exam was performed according to our departmental dose optimization program which includes automated exposure control, adjustment of the mA and/or kV according to patient size and/or use of iterative reconstruction technique. COMPARISON: CT head 05/25/2018 FINDINGS: CTA neck:There is conventional aortic arch anatomy. The proximal [...] cervical vertebral artery stenoses are seen. CTA head:The right intradural vertebral artery primarily terminates in PICA with a hypoplastic distal V4 segment. There is moderate to severe proximal right intradural vertebral artery stenosis. There is carotid siphon and left intradural vertebral artery stenosis. The remaining proximal [place] vessels demonstrate no significant stenosis. No saccular aneurysm is seen. Other findings:There is bilateral maxillary sinusitis. Multilevel cervicalspine degenerative changes are present with up to moderate canal stenosis. There is a right thyroid lobe 1.5 cm nodule for which ultrasound follow up is suggested. There are suspected breathing motion artifacts in the lungs. Nonspecific prominent jugular chain lymph nodes may be reactive but should becorrelated clinically. IMPRESSION: 1. Right cervical carotid atherosclerosis with mild right proximal cervical ICA stenosis , up to 20%. No hemodynamically significant carotid stenosis seen by NASCET criteria. 2. Mild left vertebral artery V2 segment spondylotic stenosis. 3. Right intradural vertebral artery primarily terminating in PICA with moderate to severe proximal intradural segment stenosis. 4.Mild carotid siphon and left intradural vertebral artery atherosclerosis. 5. Right thyroid lobe 1.5 cm nodule. Advise follow up ultrasound. 6. Maxillary sinusitis and nonspecific prominent cervical lymph nodes. Signed: Rosalino Flores MDReport Verified Date/Time: 05/26/2018 18:11:06 Reading Location: [address] Neuro Reading Room CT, CAROTID, [id number] 18:11:00FINAL REPORT CTA head and neck with contrast INDICATION: Stroke post tPA TECHNIQUE: Axial intravenous contrast enhanced CTA images of the head and neck were obtained. Multiplanarand 3-D volume rendered reconstruction images were generated on a separate workstation for better delineation of the vascular anatomy. This exam was performed according to our departmental dose optimization program which includes automated exposure control, adjustment of the mA and/or kV according to patient size and/or use of iterative reconstruction technique. COMPARISON: CT head 05/25/2018 FINDINGS: CTA neck:There is conventional aortic arch anatomy. The proximal [...] cervical vertebral artery stenoses are seen. CTA head:The right intradural vertebral artery primarily terminates in PICA with a hypoplastic distal V4 segment. There is moderate to severe proximal right intradural vertebral artery stenosis. There is carotid siphon and left intradural vertebral artery stenosis. The remaining proximal [place] vessels demonstrate no significant stenosis. No saccular aneurysm is seen. Other findings:There is bilateral maxillary sinusitis. Multilevel cervicalspine degenerative changes are present with up to moderate canal stenosis. There is a right thyroid lobe 1.5 cm nodule for which ultrasound follow up is suggested. There are suspected breathing motion artifacts in the lungs. Nonspecific prominent jugular chain lymph nodes may be reactive but should becorrelated clinically. IMPRESSION: 1. Right cervical carotid atherosclerosis with mild right proximal cervical ICA stenosis , up to 20%. No hemodynamically significant carotid stenosis seen by NASCET criteria. 2. Mild left vertebral artery V2 segment spondylotic stenosis. 3. Right intradural vertebral artery primarily terminating in PICA with moderate to severe proximal intradural segment stenosis. 4.Mild carotid siphon and left intradural vertebral artery atherosclerosis. 5. Right thyroid lobe 1.5 cm nodule. Advise follow up ultrasound. 6. Maxillary sinusitis and nonspecific prominent cervical lymph nodes. Signed: Rosalino Flores MDRort Verified Date/Time: 05/26/2018 18:11:06 Reading Location: [address] Neuro Reading Room CT, BRAIN, WITHOUT [id number] 17:02:00FINAL REPORT CT head without contrast INDICATION: Post tPA TECHNIQUE: Axial noncontrast CT images through the head were obtained. This exam was performed according to our departmental dose optimization program which includes automated exposure control, adjustment of the mA and/or kV according to patient size and/or use of iterative reconstruction technique. COMPARISON: CT head 2017 FINDINGS:There is no acute intracranial hemorrhage or mass [...] and orbits are unremarkable. The calvarium is intact.IMPRESSION: No intracranial hemorrhage post tPA administration. No specific CT findings of acute territorial infarct. Microvascular ischemic changes, grossly similar to 05/25/2018. Advise MRI to better assess for acute ischemia if there is no contraindication. Maxillary sinusitis. Signed: Rosalino Flores MDReport Verified Date/Time: 2017 17:02:31 Reading Location: [facility] C013V Neuro Reading Room HEMOGLOBIN [id number] 10:15:00 Test Item Value Reference Range Comments HEMOGLOBIN A1C (BEAKER) (test hzlw=969) 5.8 % 4.3-6.1 [id number] 08:18:00 Test Item Value Reference Range Comments HOMOCYSTEINE (BEAKER) (test xfmm=838) 6.2 umol/L 5.1-15.4 FastingTSH/FREE T4 IF [id number] 06:52:00 Test Item Value Reference Range Comments THYROID STIMULATING HORMONE (BEAKER) (test 2.33 uIU/mL 0.35-4.94 csdb=375) FastingTROPONIN [id number] 06:28:00 Test Item Value Reference Range Comments TROPONIN I (BEAKER) (test egik=156) 0.02 ng/mL 0.00-0.03 Troponin I (TnI) levels must be interpreted [...] failure, acidosis, acute neurological disease, and persistent tachyarrhythmia.FastingLIPID [id number] 06:21:00 Test Item Value Reference Range Comments TRIGLYCERIDES (BEAKER) (test zdti=023) 296 mg/dL CHOLESTEROL (BEAKER) (test broo=051) 216 mg/dL HDL CHOLESTEROL (BEAKER) (test urcc=891) 47 mg/dL LDL CHOLESTEROL CALCULATED (BEAKER) (test 110 mg/dL ohht=482) Triglyceride Reference Range: Low Risk <150 Borderline 150- 199 High Risk 200-499 Very High Risk >=500Cholesterol Reference Range: Low Risk <200 Borderline 200-239 High Risk > 240HDL Cholesterol Reference Range: Low Risk >=60 High Risk <40LDL Cholesterol Reference Range: Optimal <100 Near Optimal 100-129 Borderline 130-159 High 160-189 Very High >=190 FastingBASIC METABOLIC [id number] 06:21:00 Test Item Value Reference Range Comments SODIUM (BEAKER) (test 137 meq/L 136-145 bbnb=020) POTASSIUM (BEAKER) (test 3.9 meq/L 3.5-5.1 gmyw=522) CHLORIDE (BEAKER) (test 101 meq/L 98-107 zcou=674) CO2 (BEAKER) (test 23 meq/L 22-29 udzm=266) BLOOD UREA NITROGEN 17 mg/dL 7-21 (BEAKER) (test foik=013) CREATININE (BEAKER) (test 0.92 mg/dL 0.57-1.25 ujnz=364) GLUCOSE RANDOM (BEAKER) 108 mg/dL 70-105 (test uvde=443) CALCIUM (BEAKER) (test 9.4 mg/dL 8.4-10.2 mmrp=250) EGFR (BEAKER) (test 63 mL/min/1.73 sq m ESTIMATED GFR IS NOT rsrl=4484) ACCURATE CREATININE CLEARANCE IN PREDICTING GLOMERULAR FILTRATION RATE. ESTIMATED GFR IS NOT APPLICABLE FOR DIALYSIS PATIENTS. FastingCBC W/PLT COUNT & AUTO [id number] 05:52:00 Test Item Value Reference Range Comments WHITE BLOOD CELL COUNT (BEAKER) (test mrjc=286) 19.6 K/ L 3.5-10.5 RED BLOOD CELL COUNT (BEAKER) (test aphm=278) 4.72 M/ L 3.93-5.22 HEMOGLOBIN (BEAKER) (test bkov=383) 13.4 GM/DL 11.2-15.7 HEMATOCRIT (BEAKER) (test paci=488) 41.0 % 34.1-44.9 MEAN CORPUSCULAR VOLUME (BEAKER) (test nolq=438) 86.9 fL 79.4-94.8 MEAN CORPUSCULAR HEMOGLOBIN (BEAKER) (test 28.4 pg 25.6-32.2 vzzp=646) MEAN CORPUSCULAR HEMOGLOBIN CONC (BEAKER) (test 32.7 GM/DL 32.2-35.5 xsop=294) RED CELL DISTRIBUTION WIDTH (BEAKER) (test 13.2 % 11.7-14.4 glys=916) PLATELET COUNT (BEAKER) (test drdh=094) 388 K/CU MM 150-450 MEAN PLATELET VOLUME (BEAKER) (test ztom=019) 9.7 fL 9.4-12.3 NUCLEATED RED BLOOD CELLS (BEAKER) (test 0 /100 WBC 0-0 psdn=626) NEUTROPHILS RELATIVE PERCENT (BEAKER) (test 72 % ictp=117) LYMPHOCYTES RELATIVE PERCENT (BEAKER) (test 18 % dfdb=238) MONOCYTES RELATIVE PERCENT (BEAKER) (test 7 % afzd=808) EOSINOPHILS RELATIVE PERCENT (BEAKER) (test 1 % pndt=441) BASOPHILS RELATIVE PERCENT (BEAKER) (test 1 % ifir=465) NEUTROPHILS ABSOLUTE COUNT (BEAKER) (test 14.05 K/ L 1.56-6.13 bkgi=434) LYMPHOCYTES ABSOLUTE COUNT (BEAKER) (test 3.54 K/ L 1.18-3.74 jhht=068) MONOCYTES ABSOLUTE COUNT (BEAKER) (test 1.46 K/ L 0.24-0.36 uwoh=706) EOSINOPHILS ABSOLUTE COUNT (BEAKER) (test 0.13 K/ L 0.04-0.36 fnqf=286) BASOPHILS ABSOLUTE COUNT (BEAKER) (test 0.09 K/ L 0.01-0.08 kcjo=159) IMMATURE GRANULOCYTES-RELATIVE PERCENT (BEAKER) 2 % 0-1 (test fbbl=5382) PROTHROMBIN [id number] 21:17:00 Test Item Value Reference Range Comments PROTIME (BEAKER) (test iado=533) 15.2 seconds 11.7-14.7 INR (BEAKER) (test rdbb=906) 1.2 <=5.9 RECOMMENDED COUMADIN/WARFARIN INR THERAPY RANGESSTANDARD DOSE: 2.0 - 3.0 Includes: PROPHYLAXIS forvenous thrombosis, systemic embolization; TREATMENT for venous thrombosis and/or pulmonary embolus.HIGH RISK: Target INR is 2.5-3.5 for patients with mechanical heart valves.RAPID DRUG SCREEN, [id number] 20: 09:00 Test Item Value Reference Range Comments BARBITURATE URINE (BEAKER) (test nctz=847) Negative Negative BENZODIAZEPINE SCREEN URINE (BEAKER) (test Negative Negative eomg=972) COCAINE (METAB.) SCREEN (BEAKER) (test cwjx=4849) Negative Negative METHADONE SCREEN (BEAKER) (test imtv=1857) Negative Negative OPIATE SCREEN URINE (BEAKER) (test pcxl=083) Negative Negative CANNABINOID SCREEN URINE (BEAKER) (test smge=134) Negative Negative AMPH/METHAMPH SCREEN (BEAKER) (test bkso=9990) Negative Negative PHENCYCLIDINE SCREEN URINE (BEAKER) (test olwb=871) Negative Negative OXYCODONE SCREEN URINE (BEAKER) (test ohwi=0046) Negative Negative DRUG CUTOFF CONC.Cocaine 300 ng/mL Cannabinoid 50 ng/mL Benzodiazepine 200 ng/mLBarbiturate 200 ng/ mLPhencyclidine 25 ng/mLOpiate 300 ng/mLMethadone 300 ng/mLAmphetamine/ 1000 ng/mL MethamphetamineOxycodone 300 ng/mLThis assay provides an unconfirmed qualitative test result for the clinical management of patients in emergency situations. Chain of custody not maintained. Some exny-fqe-vaxlhvm medications, as well as adulterants, may cause inaccurate results. Clinical correlation should be applied. A more comprehensive drug screen or confirmation of a detected drug may be performed upon request.POCT-GLUCOSE [id number] 18:43:00 Test Item Value Reference Range Comments POC-GLUCOSE METER (BEAKER) 105 mg/dL 70-[address] [facility] [address] [facility] (test glpl=9258) [facility] [address] CT, BRAIN/STROKE [id number] 17:10:00FINAL REPORT CT, BRAIN/STROKE PROTOCOL CLINICAL INDICATION: Stroke COMPARISON: None TECHNIQUE: Noncontrast axial CT imaging of the brain and skull. DOSE REDUCTION : Dose modulation, iterative reconstruction, and/or weight-based adjustment of the mA/kV was utilized to reduce the radiation dose to as low as reasonably achievable. FINDINGS:Cerebral parenchyma: Minimal volume loss. Chronic white matter disease bilaterally without rodríguez-white disruption. No parenchymal hemorrhageMidline structures: Normally positioned.Cerebellum and brainstem: Normal.Ventricles: Normal volume.Extra-axial spaces: Unremarkable. Calvarium and skull base: Intact.Paranasal sinuses and mastoid air cells: Visible chambers are clear.Orbital contents: Included portions unremarkable. Additional findings:None. IMPRESSION: Chronic involutional changes without acute intracranial abnormality. No intracranial hemorrhage. If there is persistent clinical concern for intracranial pathology, MR examination isrecommended for further characterization. Findings discussed with warehouse team member at the time of dictation. Signed: JR Roach Robert MDReport Verified Date/Time: 2017 17:10:02 Reading Location: [address] Reading Room TROPONIN [id number] 15:59:00 Test Item Value Reference Range Comments TROPONIN I (BEAKER) (test qopc=465) 0.02 ng/mL 0.00-0.03 Troponin I (TnI) levels must be interpreted [...] failure, acidosis, acute neurological disease, and persistent tachyarrhythmia.CBC W/PLT COUNT & AUTO [id number] 15:54:00 Test Item Value Reference Range Comments WHITE BLOOD CELL COUNT (BEAKER) (test acya=357) 19.6 K/ L 3.5-10.5 RED BLOOD CELL COUNT (BEAKER) (test hjbf=637) 4.66 M/ L 3.93-5.22 HEMOGLOBIN (BEAKER) (test jckq=808) 13.4 GM/DL 11.2-15.7 HEMATOCRIT (BEAKER) (test spyy=556) 39.9 % 34.1-44.9 MEAN CORPUSCULAR VOLUME (BEAKER) (test vbtv=290) 85.6 fL 79.4-94.8 MEAN CORPUSCULAR HEMOGLOBIN (BEAKER) (test 28.8 pg 25.6-32.2 ggve=111) MEAN CORPUSCULAR HEMOGLOBIN CONC (BEAKER) (test 33.6 GM/DL 32.2-35.5 cibe=003) RED CELL DISTRIBUTION WIDTH (BEAKER) (test 13.0 % 11.7-14.4 oknz=929) PLATELET COUNT (BEAKER) (test humd=845) 365 K/CU MM 150-450 MEAN PLATELET VOLUME (BEAKER) (test upxy=354) 9.7 fL 9.4-12.3 NUCLEATED RED BLOOD CELLS (BEAKER) (test 0 /100 WBC 0-0 lwef=670) NEUTROPHILS RELATIVE PERCENT (BEAKER) (test 73 % ohct=028) LYMPHOCYTES RELATIVE PERCENT (BEAKER) (test 16 % gyir=593) MONOCYTES RELATIVE PERCENT (BEAKER) (test 8 % zdcg=903) EOSINOPHILS RELATIVE PERCENT (BEAKER) (test 0 % joch=395) BASOPHILS RELATIVE PERCENT (BEAKER) (test 1 % exdz=142) NEUTROPHILS ABSOLUTE COUNT (BEAKER) (test 14.33 K/ L 1.56-6.13 lydp=530) LYMPHOCYTES ABSOLUTE COUNT (BEAKER) (test 3.19 K/ L 1.18-3.74 yvro=933) MONOCYTES ABSOLUTE COUNT (BEAKER) (test 1.50 K/ L 0.24-0.36 xusu=717) EOSINOPHILS ABSOLUTE COUNT (BEAKER) (test 0.05 K/ L 0.04-0.36 iwlk=655) BASOPHILS ABSOLUTE COUNT (BEAKER) (test 0.12 K/ L 0.01-0.08 txkz=031) IMMATURE GRANULOCYTES-RELATIVE PERCENT (BEAKER) 2 % 0-1 (test evxb=7246) BASIC METABOLIC [id number] 15:51:00 Test Item Value Reference Range Comments SODIUM (BEAKER) (test 137 meq/L 136-145 qgbq=227) POTASSIUM (BEAKER) (test 3.4 meq/L 3.5-5.1 bclv=747) CHLORIDE (BEAKER) (test 97 meq/L 98-107 lyni=419) CO2 (BEAKER) (test 26 meq/L 22-29 mbbn=919) BLOOD UREA NITROGEN 27 mg/dL 7-21 (BEAKER) (test cqud=348) CREATININE (BEAKER) (test 0.95 mg/dL 0.57-1.25 wioa=421) GLUCOSE RANDOM (BEAKER) 102 mg/dL 70-105 (test egxf=455) CALCIUM (BEAKER) (test 9.8 mg/dL 8.4-10.2 sftu=472) EGFR (BEAKER) (test 60 mL/min/1.73 sq m ESTIMATED GFR IS NOT njmj=9278) ACCURATE CREATININE CLEARANCE IN PREDICTING GLOMERULAR FILTRATION RATE. ESTIMATED GFR IS NOT APPLICABLE FOR DIALYSIS PATIENTS.
--- OUTSIDE RECORDS SUMMARY | 2019-05-05 12:23 | XMS REPORT | Summary of Care ---
:1960 Author Name DANISH HANNAH M.D. Address Unavailable Unavailable , Care Team Providers Name Role Phone BRIELLE Jara, DANISH Unavailable Unavailable Arina KWOK, Bethany Unavailable Unavailable Unavailable Unavailable Unavailable Functional Status Name Dates Details Functional status health issues are not documented Status: Name Dates Details Cognitive status health issues are not documented Status: Problems Name Dates Details Lacunar stroke (434.91, I63.81) Status: Active TIA (transient ischemic attack) (435.9, G45.9) Status: Active Medications Name Dates Details amLODIPine Besylate 10 MG Oral Tablet TAKE 1 TABLET BY MOUTH EVERY DAY Quantity: 30 Refills: 3 Start : 29-Apr-2019 Active Aspirin 81 MG Oral Tablet Delayed Release TAKE 1 TABLET DAILY. Refills: 2 Start : 29-Apr-2019 Active Atorvastatin Calcium 80 MG Oral Tablet TAKE 1 TABLET BY MOUTH AT BEDTIME Quantity: 30 Refills: 3 Start : 29-Apr-2019 Active Baclofen 10 MG Oral Tablet TAKE 1 TABLET TWICE DAILY Quantity: 180 Refills: 2 Start : 29-Apr-2019 Active Clopidogrel Bisulfate 75 MG Oral Tablet TAKE 1 TABLET BY MOUTH EVERY DAY Quantity: 30 Refills: 3 Start : 29-Apr-2019 Active 30 Tablet Bottle Lisinopril 10 MG Oral Tablet TAKE 1 TABLET BY MOUTH DAILY Quantity: 60 Refills: 1 Start : 29-Apr-2019 Active Loratadine 10 MG Oral Tablet TAKE 1 TABLET DAILY. Refills: 0 Start : 29-Apr-2019 Active Metoprolol Succinate ER 100 MG Oral Tablet Extended Release 24 Hour TAKE 1 TABLET DAILY. Refills: 0 Start : 29-Apr-2019 Active raNITIdine HCl - 150 MG Oral Tablet TAKE 1 TABLET EVERY 12 HOURS NEEDED. Refills: 0 Start : 29-Apr-2019 Active Sertraline HCl - 50 MG Oral Tablet TAKE 1 TABLET DAILY DIRECTED. Refills: 6 Start : 29-Apr-2019 Active traZODone HCl - 50 MG Oral Tablet TAKE 1 TABLET AT BEDTIME NEEDED FOR SLEEP. Quantity: 30 Refills: 0 Start : 29-Apr-2019 Active Voltaren 1 % Transdermal Gel Refills: 0 Start : 29-Apr-2019 Active 100 GM Tube Allergies and Adverse Reactions Name Dates Details codeine (Allergy) Status: Active Past Medical History Name Dates Details History of arterial ischemic stroke (V12.54, Z86.73) Status: Resolved History of Hyperlipidemia (272.4, E78.5) Status: Resolved History of Hypertension (401.9, I10) Status: Resolved Procedures Procedure Dates Details [N] 30 Day Event Monitor Recording Date: 29-Apr-2019 [UTP] Neurosonology Lab Date: 29-Apr-2019 Immunization Name Dates Details Immunizations not documented Social History Name Dates Details - Status: Name Dates Details Never smoker Vital Signs Date Test Result Details [id number] BP Systolic 129 mm[Hg] Status: Comments: Location: RUE; Position: Sitting BP Diastolic 76 mm[Hg] Status: Comments: Location: RUE; Position: Sitting Height 66 in Status: Weight 174.25 lb Status: Body Mass Index Calculated 28.12 kg/m2 Status: Body Surface Area Calculated 1.89 m2 Status: Heart Rate 66 /min Status: Comments: Location: R Brachial Artery; Results Date Description Value Details Results not documented Plan of Care Name Dates Details Planned Observations [N] 30 Day Event Monitor Recording On: 29-Apr-2019 Intent [UTP] Neurosonology Lab On: 29-Apr-2019 Intent Planned Goals not documented Interventions Provided Labs/Procedures/ImagingTobacco Use Screening; Done: 29 Apr 2019Plan-- Continue antithrombotic aspirin 81 mg daily for stroke prevention -- Discussed with patient about lifestyle changes including a healthy diet similar to Mediterraneandiet, exercising regularly, maintaining a healthy weight, moderating alcohol consumption and smokingcessation -- Reinforced management of risk factors and lifestyle changes -- Your blood pressure goal is less than 130/ 80 -- Continue current anti-hypertensive medications -- LDL goal is less than 70 -- Continue statin for lipid management -- Continue current antidepressant - outpatient PT/OT- Request medical records from [facility] from 2014 TIA , and [facility] 2018 stroke.- 30 day monitor- antiplatelet- atorvastatin- outpatient PT/OT- Sertraline for mood- IT baclofen with Dr. Friedman. - Consider coming off trazodone [address] order for: -- Carotid Doppler Instructions Name Dates Details Instructions not documented Encounters Appointment; DANISH HANNAH M.D. On: 29-Apr-2019 13:00 Encounter Diagnosis: Problem not documented
--- NOTE | 2019-05-05 13:21 | EDPHYS ---
Physician Documentation [facility] Name: Georgiana Howard Age: 58 yrs Sex: Female : 1960 Arrival Date: 05/05/2019 Time: 12:15 Bed 19 Private MD: ED Physician Jose Georges HPI: 05/05 13:10 This 58 yrs old Female presents to ER via Ambulatory with complaints of High cp Blood Pressure. 13:10 Patient reports she was on her way to physical therapy when she felt like blood cp pressure was elevated. Patient denies chest pain, denies headache, denies weakness. Patient reports history of CVA with left side weakness in April 2018. 13:10 The patient has elevated blood pressure and discovered this at home, with a home device.cp 13:10 Onset: The symptoms/episode began/occurred today. Severity of symptoms: At its worst cp the blood pressure was 156 mm Hg. Historical: - Allergies: 12:21 Codeine; aa5 - Home Meds: 12:21 Aspirin Oral [Active]; Lisinopril Oral [Active]; amlodipine oral [Active]; Metoprolol aa5 Tartrate Oral [Active]; Aspirin Oral [Active]; atorvastatin oral oral [Active]; sertraline oral oral [Active]; Trazodone Oral [Active]; - PMHx: 12:21 High Cholesterol; CVA; Hypertension; aa5 - PSHx: 12:21 Hysterectomy; Appendectomy; aa5 - Immunization history:: Adult Immunizations unknown. - Social history:: Smoking status: Patient/guardian denies using tobacco. - Ebola Screening: : No symptoms or risks identified at this time. ROS: 13:13 Eyes: Negative for injury, pain, redness, and discharge. cp 13:13 Constitutional: Negative for body aches, chills, fever, poor PO intake. 13:13 ENT: Negative for drainage from ear(s), ear pain, sore throat, difficulty swallowing, difficulty handling secretions. 13:13 Cardiovascular: Negative for chest pain, edema, palpitations. 13:13 Respiratory: Negative for cough, shortness of breath, wheezing. 13:13 Abdomen/GI: Negative for abdominal pain, nausea, vomiting, and diarrhea. 13:13 Back: Negative for pain at rest, pain with movement. 13:13 : Negative for urinary symptoms. 13:13 Neuro: Negative for altered mental status, dizziness, headache, numbness, syncope, weakness. 13:13 All other systems are negative. Exam: 13:15 Head/Face: Normocephalic, atraumatic. cp 13:15 Constitutional: The patient appears in no acute distress, alert, awake, non-diaphoretic, non-toxic, well developed, well nourished. 13:15 Eyes: Periorbital structures: appear normal, Conjunctiva: normal, no exudate, no injection, Sclera: no appreciated abnormality, Lids and lashes: appear normal, bilaterally. 13:15 ENT: External ear(s): are unremarkable, Nose: is normal, Mouth: Lips: moist, Oral mucosa: pink and intact, moist, Posterior pharynx: is normal, airway is patent, no erythema, no exudate. 13:15 Neck: ROM/movement: is normal, is supple, without pain, no range of motions limitations, no nuchal rigidity. 13:15 Chest/axilla: Inspection: normal. 13:15 Cardiovascular: Rate: normal, Rhythm: regular. 13:15 Respiratory: the patient does not display signs of respiratory distress, Respirations: normal, no use of accessory muscles, no retractions, no splinting, no tachypnea, labored breathing, is not present, Breath sounds: are clear throughout, no decreased breath sounds, no stridor, no wheezing. Vital Signs: 12:21 BP 156 / 79; Pulse 80; Resp 16 S; Temp 98.4(O); Pulse Ox 97% on R/A; Weight 74.84 kg aa5 (R); Height 5 ft. 6 in. (167.64 cm) (R); Pain 0/10; 13:11 BP 124 / 69; Pulse 86; Resp 17; Pulse Ox 99% on R/A; aj 13:52 BP 122 / 61; Pulse 76; Resp 16; Pulse Ox 98% on R/A; aj 12:21 Body Mass Index 26.63 (74.84 kg, 167.64 cm) aa5 MDM: 12:55 Patient medically screened. cp 13:20 Data reviewed: vital signs, nurses notes, and as a result, I will discharge patient. cp 13:20 Differential diagnosis: hypertensive crisis, Malignant HTN, CVA, intracerebral cp hemorrhage. Counseling: I had a detailed discussion with the patient and/or guardian regarding: the historical points, exam findings, and any diagnostic results supporting the discharge/admit diagnosis, to return to the emergency department if symptoms worsen or persist or if there are any questions or concerns that arise at home. Administered Medications: No medications were administered Disposition: 19:12 Co-signature as Attending Physician, Jose Georges MD. Disposition: 05/05/19 13:20 Discharged to Home. Impression: Encounter for examination of blood pressure. - Condition is Stable. - Discharge Instructions: How to Take Your Blood Pressure, [id number], Form - Blood Pressure Record Sheet. - Medication Reconciliation Form, Thank You Letter, Antibiotic Education, Prescription Opioid Use form. - Follow up: Emergency Department; When: As needed; Reason: Worsening of condition. - Problem is new. - Symptoms have improved. Signatures: Caroline Lacey, RN RN aa5 Robert Russo PA PA Jose Palencia MD MD Yousif Mathews RN RN bp Corrections: (The following items were deleted from the chart) 14:07 13:20 05/05/2019 13:20 Discharged to Home. Impression: Encounter for examination of bp blood pressure. Condition is Stable. Forms are Medication Reconciliation Form, Thank You Letter, Antibiotic Education, Prescription Opioid Use. Follow up: Emergency Department; When: As needed; Reason: Worsening of condition. Problem is new. Symptoms have improved. cp
--- NOTE | 2019-05-05 13:21 | ER ---
Nurse's Notes [facility] Name: Georgiana Howard Age: 58 yrs Sex: Female : 1960 Arrival Date: 05/05/2019 Time: 12:15 Bed 19 Private MD: Diagnosis: Encounter for examination of blood pressure Presentation: 05/05 12:17 Presenting complaint: Patient states: "I just don't feel right, I felt like my blood aa5 pressure was going high so I checked it at home and it was 152/72". Pt denies headache, denies numbness, denies tingling, denies weakness,denies recent illness. Transition of care: patient was not received from another setting of care. Onset of symptoms was May 05, 2019. Risk Assessment: Do you want to hurt yourself or someone else? Patient reports no desire to harm self or others. Initial Sepsis Screen: Does the patient meet any 2 criteria? No. Patient's initial sepsis screen is negative. Does the patient have a suspected source of infection? No. Patient's initial sepsis screen is negative. Care prior to arrival: None. 12:17 Acuity: KLAUS 3 aa5 12:17 Method Of Arrival: Ambulatory aa5 Triage Assessment: 12:25 General: Appears in no apparent distress. comfortable, Behavior is cooperative, bp appropriate for age, anxious. Pain: Denies pain. EENT: No deficits noted. Neuro: No deficits noted. Cardiovascular: Rhythm is sinus rhythm. Respiratory: No deficits noted. GI: No signs and/or symptoms were reported involving the gastrointestinal system. : No signs and/or symptoms were reported regarding the genitourinary system. Derm: No deficits noted. Musculoskeletal: No deficits noted. Historical: - Allergies: 12:21 Codeine; aa5 - Home Meds: 12:21 Aspirin Oral [Active]; Lisinopril Oral [Active]; amlodipine oral [Active]; Metoprolol aa5 Tartrate Oral [Active]; Aspirin Oral [Active]; atorvastatin oral oral [Active]; sertraline oral oral [Active]; Trazodone Oral [Active]; - PMHx: 12:21 High Cholesterol; CVA; Hypertension; aa5 - PSHx: 12:21 Hysterectomy; Appendectomy; aa5 - Immunization history:: Adult Immunizations unknown. - Social history:: Smoking status: Patient/guardian denies using tobacco. - Ebola Screening: : No symptoms or risks identified at this time. Screenin:12 Abuse screen: Denies threats or abuse. Denies injuries from another. Nutritional aj screening: No deficits noted. Tuberculosis screening: No symptoms or risk factors identified. Fall Risk None identified. Assessment: 13:52 General: Appears in no apparent distress. comfortable, Behavior is calm, cooperative, aj appropriate for age. Pain: Denies pain. Neuro: Level of Consciousness is awake, alert, obeys commands, Oriented to person, place, time, situation, Appropriate for age. Respiratory: Airway is patent Respiratory effort is even, unlabored, Respiratory pattern is regular, symmetrical. Derm: Skin is intact, is healthy with good turgor, Skin is pink, warm \\T\\ dry. normal. Musculoskeletal: Atrophy noted in left arm and left leg. 14:06 Reassessment: PT D/C HOME AMBULATORY WITH FAMILY, DX WITH BLOOD PRESSURE EXAM. bp Vital Signs: 12:21 BP 156 / 79; Pulse 80; Resp 16 S; Temp 98.4(O); Pulse Ox 97% on R/A; Weight 74.84 kg aa5 (R); Height 5 ft. 6 in. (167.64 cm) (R); Pain 0/10; 13:11 BP 124 / 69; Pulse 86; Resp 17; Pulse Ox 99% on R/A; aj 13:52 BP 122 / 61; Pulse 76; Resp 16; Pulse Ox 98% on R/A; aj 12:21 Body Mass Index 26.63 (74.84 kg, 167.64 cm) aa5 ED Course: 12:15 Patient arrived in ED. rg4 12:17 Arm band placed on. aa5 12:20 Triage completed. aa5 12:34 Yousif Mathews, RN is Primary Nurse. bp 12:43 Robert Russo PA is PHCP. cp 12:43 Jose Georges MD is Attending Physician. cp 13:12 Patient has correct armband on for positive identification. aj 13:52 No provider procedures requiring assistance completed. Patient did not have IV access aj during this emergency room visit. Administered Medications: No medications were administered Outcome: 13:20 Discharge ordered by . cp 13:52 Discharged to home ambulatory, with family. aj 13:52 Condition: good 13:52 Discharge instructions given to patient, family, Instructed on discharge instructions, follow up and referral plans. Demonstrated understanding of instructions, follow-up care. 14:07 Patient left the ED. bp Signatures: Keerthi Wright RN RN Caroline Strong RN RN aa5 Robert Russo PA PA cp Garcia, Rubi rg4 Yousif Mathews RN RN bp
== END 2019-05-05 14:07 | disposition home or self-care (01) ==
LOC: ER 12:13
DX: I10 Essential (primary) hypertension (principal); E78.00 Pure hypercholesterolemia, unspecified; Z86.73 Personal history of transient ischemic attack (TIA), and cerebral infarction without residual deficits; Z79.82 Long term (current) use of aspirin; Z88.5 Allergy status to narcotic agent
CPT/HCPCS: 99284